=== PATIENT | male | born 1955 | race Caucasian/White ===

== ENCOUNTER 2016-11-18 00:32 | Inpatient (IN) ==
--- NOTE | 2016-11-18 01:05 | Emergency Department Note ---
Disposition Clinical Impression: Pulmonary emboli Qualifiers: Pulmonary embolism type: other Chronicity: acute Acute cor pulmonale presence: without acute cor pulmonale Qualified Code(s): I26.99 - Other pulmonary embolism without acute cor pulmonale Disposition: Admitted As Inpatient Condition: Serious Time of Disposition: 04:07 Chest Pain HPI - General Chief Complaint: ED Chest Pain Stated Complaint: chest pain Time Seen by Provider: 11/18/16 00:58 Source: patient, EMS Mode of arrival: EMS Limitations: no limitations Vital Signs Reviewed: Yes Nursing Notes Reviewed: Yes - History of Present Illness HPI Narrative: patient is brought to the ED with multiple complaints but primarily he states he was having chest pain earlier in the evening but not having chest pain at this time. He states he received a call from his primary physician's nurse advising him that a lung biopsy that was done the "other day" showed some abnormal cells. He states he has been diagnosed with prostate CA, but is unable to give a length of time since this diagnosis. He further elaborates about his spine pain, and now is wanting something for his back pain, wants Cortisone shot in his hips because of his back pain. At this time he is alert and oriented, not experiencing any chest pain no nausea , vomiting or diarrhea. No diaphoresis, no shortness of breath. Pt complaint: chest pain Onset (ago): unknown Duration: now resolved Pain Location: substernal Severity: mild Severity scale (1-10): 4 Quality: aching Pain Radiation: none Worsens with: nothing Treatments prior to arrival chest pain: none - Related Data Home Medications Medication Instructions Recorded Confirmed Betamethasone Valerate 1 appl TP BID 11/11/16 11/18/16 Ciclopirox 1 appl TP 2XW 11/11/16 11/18/16 [place]-3/Dha/Epa/Fish Oil [Fish Oil 1,000 mg PO DAILY 11/11/16 11/18/16 1,000 mg Softgel] Previous Rx's Medication Instructions Recorded Oxycodone HCl/Acetaminophen 1 each PO Q4H PRN #30 tablet 11/19/16 [Percocet 10-325 mg Tablet] Rivaroxaban [Xarelto] 15 mg PO BID 21 Days 11/19/16 Nicotine Patch [Nicoderm] 21 mg TD DAILY #30 patch.td24 11/21/16 OxyCODONE ER (12 HR) [OxyCONTIN] 10 mg PO Q12HR #14 tab.er.12h 11/21/16 OxyCODONE/APAP 10/325 [Percocet 1 each PO Q4HR PRN #0 tablet 11/21/16 10/325 MG] Allergies Allergy/AdvReac Type Severity Reaction Status Date / Time NSAIDS (Non-Steroidal AdvReac Severe Vomiting Verified 09/09/16 16:32 Anti-Inflamma Cyclobenzaprine AdvReac Intermediate Agitated Verified 09/09/16 16:32 All systems ED: reviewed and negative except as stated. Constitutional: Denies: fever, chills, weakness, weight change Eyes: Denies: eye pain, eye discharge, vision change ENT ED: Denies: ear pain, throat pain, dental pain, hearing loss, epistaxis, congestion, dysphagia Cardiovascular: Reports: chest pain. Denies: palpitations, dyspnea on exertion , orthopnea Respiratory: Denies: cough, dyspnea, wheezes, hemoptysis, stridor Gastrointestinal: Denies: abdominal pain, nausea, vomiting, diarrhea, constipation, hematemesis, melena, hematochezia Genitourinary: Denies: urgency, dysuria, frequency, hematuria Musculoskeletal: Denies: back pain, neck pain, arthralgia, myalgia Integumentary: Denies: rash, abrasion, lesions Chest Pain PMH - Past Medical History Medical history: Reports: arthritis, cancer, CHF, hypertension, other Surgical history: Reports: hip replacement, orthopedic, other Psychiatric history: Reports: anxiety - Social History Smoking Status: Current every day smoker Alcohol use: Reports: occasionally, heavy Drug use: Reports: prescription drug abuse, other Physical Exam - General Limitations: no limitations General appearance: alert, in no apparent distress - Head Head exam: atraumatic, normocephalic, normal inspection - Eye Eye exam: Present: normal appearance, PERRL, EOMI - ENT ENT exam: normal exam, normal oropharynx, mucous membranes moist - Neck Neck exam: Present: normal inspection, full ROM, trachea midline - Chest Chest inspection: Present: normal inspection, symmetric chest wall rise. Absent : tenderness, rash, abscess - Respiratory Respiratory exam: Present: normal lung sounds bilaterally. Absent: respiratory distress, wheezes, prolonged expiratory phase - Cardiovascular Cardiovascular exam: Present: regular rate, normal rhythm, normal heart sounds. Absent: systolic murmur, diastolic murmur, JVD - Abdominal Exam Abdominal exam: Present: soft, Non-Tender. Absent: tenderness, distention, guarding, rebound, rigidity - Extremities Exam Extremities exam: Present: normal inspection, full ROM. Absent: tenderness, pedal edema - Back Exam Back exam: Present: normal inspection, full ROM. Absent: tenderness - Neurological Exam Neurological exam: Present: alert, oriented X3 - Psychiatric Psychiatric exam: Present: normal affect, normal mood - Skin Skin exam: Present: warm, dry, intact, normal color Course - Consultations Consultation #1: spoke with Dr. Mayen, hospitalist and he accepted patient as admission Time: 04:07 Vital Signs Temperature 97.5 F L 11/18/16 00:35 Pulse Rate 74 11/18/16 00:35 Respiratory Rate 20 11/18/16 00:35 Blood Pressure 121/108 11/18/16 00:35 O2 Sat by Pulse Oximetry 99 11/18/16 00:35 Temperature 97.5 F L 11/21/16 10:59 Pulse Rate 59 11/21/16 10:59 Respiratory Rate 18 11/21/16 10:59 Blood Pressure 117/77 11/21/16 10:59 O2 Sat by Pulse Oximetry 97 11/21/16 10:59 Oxygen Delivery Oxygen Delivery Room Air Chest Pain - MDM Narrative Medical decision making narrative: pulmonary emboli right multiple - Medical Records Medical records reviewed: Yes I reviewed the patient's medical records. - Lab Data Lab results reviewed: Yes I reviewed the patient's lab results. Result diagrams: 11/21/16 06:02 11/21/16 06:02 Lab Results 11/18/16 11/18/16 11/18/16 Range/Units 01:06 01:06 01:06 WBC 6.3 (4.3-11.1) K/mcL RBC 4.37 (4.19-5.50) M/mcL Hgb 15.1 (12.9-16.9) g/dL Hct 44.5 (37.5-50.1) % MCV 101.8 H (83.0-100.0) fL MCH 34.6 H (28.0-33.3) pg MCHC 33.9 (31.6-35.5) g/dL RDW 12.7 (11.5-14.5) % Plt Count 175 (140-400) K/mcL MPV 9.6 (9.4-12.4) fL Immature Gran % 0.5 (0-4) % Seg Neutrophils % 65.7 % Lymphocytes % 19.6 % Monocytes % 10.7 % Eosinophils % 3.0 % Basophils % 0.5 % Neutrophils # 4.1 (1.6-8.9) K/mcL Lymphocytes # 1.2 (0.6-4.6) K/mcL Monocytes # 0.7 (0.0-1.3) K/mcL Eosinophils # 0.2 (0.0-0.6) K/mcL Basophils # 0.0 (0.0-0.2) K/mcL PT 10.8 (9.4-12.1) Seconds INR 1.0 APTT 30.3 (26.0-36.0) Seconds D-Dimer 2255 H (0-500) ng/mLFEU Heparin Anti-Xa, Unfract (0.30-0.70) IU/mL Sodium 139 (136-145) mEq/L Potassium 4.1 (3.5-4.5) mEq/L Chloride 107 (98-109) mEq/L Carbon Dioxide 24 (19-29) mEq/L BUN 6 L (8-26) mg/dL Creatinine 0.75 (0.72-1.25) mg/dL Est GFR ( Amer) > 60 (> 60) Est GFR (Non-Af Amer) > 60 (> 60) BUN/Creatinine Ratio 8 (6-26) Glucose 104 H (70-99) mg/dL Calculated Osmolality 286 (280-300) Calcium 9.0 (8.6-10.8) mg/dL Total Bilirubin (0.2-1.2) mg/dL AST (5-34) Units/L ALT (0-55) Units/L Alkaline Phosphatase (38-126) Units/L Troponin I (0-0.03) ng/mL Serum Total Protein (6.0-8.3) g/dL Albumin (3.5-5.0) g/dL Globulin (2.4-3.5) g/dL Albumin/Globulin Ratio (1.1-2.2) Prostate Specific Ag (0.00-4.00) ng/mL 11/18/16 11/18/16 11/18/16 Range/Units 01:06 03:50 03:50 WBC 6.3 (4.3-11.1) K/mcL RBC 4.26 (4.19-5.50) M/mcL Hgb 14.8 (12.9-16.9) g/dL Hct 43.6 (37.5-50.1) % MCV 102.3 H (83.0-100.0) fL MCH 34.7 H (28.0-33.3) pg MCHC 33.9 (31.6-35.5) g/dL RDW 12.8 (11.5-14.5) % Plt Count 164 (140-400) K/mcL MPV 9.7 (9.4-12.4) fL Immature Gran % (0-4) % Seg Neutrophils % % Lymphocytes % % Monocytes % % Eosinophils % % Basophils % % Neutrophils # (1.6-8.9) K/mcL Lymphocytes # (0.6-4.6) K/mcL Monocytes # (0.0-1.3) K/mcL Eosinophils # (0.0-0.6) K/mcL Basophils # (0.0-0.2) K/mcL PT 11.1 (9.4-12.1) Seconds INR 1.0 APTT 30.3 (26.0-36.0) Seconds D-Dimer (0-500) ng/mLFEU Heparin Anti-Xa, Unfract (0.30-0.70) IU/mL Sodium (136-145) mEq/L Potassium (3.5-4.5) mEq/L Chloride (98-109) mEq/L Carbon Dioxide (19-29) mEq/L BUN (8-26) mg/dL Creatinine (0.72-1.25) mg/dL Est GFR ( Amer) (> 60) Est GFR (Non-Af Amer) (> 60) BUN/Creatinine Ratio (6-26) Glucose (70-99) mg/dL Calculated Osmolality (280-300) Calcium (8.6-10.8) mg/dL Total Bilirubin (0.2-1.2) mg/dL AST (5-34) Units/L ALT (0-55) Units/L Alkaline Phosphatase (38-126) Units/L Troponin I 0.00 (0-0.03) ng/mL Serum Total Protein (6.0-8.3) g/dL Albumin (3.5-5.0) g/dL Globulin (2.4-3.5) g/dL Albumin/Globulin Ratio (1.1-2.2) Prostate Specific Ag (0.00-4.00) ng/mL 11/18/16 11/18/16 11/18/16 Range/Units 05:13 05:13 05:13 WBC 6.4 (4.3-11.1) K/mcL RBC 4.41 (4.19-5.50) M/mcL Hgb 15.1 (12.9-16.9) g/dL Hct 45.6 (37.5-50.1) % MCV 103.4 H (83.0-100.0) fL MCH 34.2 H (28.0-33.3) pg MCHC 33.1 (31.6-35.5) g/dL RDW 12.7 (11.5-14.5) % Plt Count 173 (140-400) K/mcL MPV 9.9 (9.4-12.4) fL Immature Gran % (0-4) % Seg Neutrophils % % Lymphocytes % % Monocytes % % Eosinophils % % Basophils % % Neutrophils # (1.6-8.9) K/mcL Lymphocytes # (0.6-4.6) K/mcL Monocytes # (0.0-1.3) K/mcL Eosinophils # (0.0-0.6) K/mcL Basophils # (0.0-0.2) K/mcL PT 11.7 (9.4-12.1) Seconds INR 1.1 APTT 185.5 H* D (26.0-36.0) Seconds D-Dimer (0-500) ng/mLFEU Heparin Anti-Xa, Unfract 0.77 H (0.30-0.70) IU/mL Sodium (136-145) mEq/L Potassium (3.5-4.5) mEq/L Chloride (98-109) mEq/L Carbon Dioxide (19-29) mEq/L BUN (8-26) mg/dL Creatinine (0.72-1.25) mg/dL Est GFR ( Amer) (> 60) Est GFR (Non-Af Amer) (> 60) BUN/Creatinine Ratio (6-26) Glucose (70-99) mg/dL Calculated Osmolality (280-300) Calcium (8.6-10.8) mg/dL Total Bilirubin (0.2-1.2) mg/dL AST (5-34) Units/L ALT (0-55) Units/L Alkaline Phosphatase (38-126) Units/L Troponin I 0.00 (0-0.03) ng/mL Serum Total Protein (6.0-8.3) g/dL Albumin (3.5-5.0) g/dL Globulin (2.4-3.5) g/dL Albumin/Globulin Ratio (1.1-2.2) Prostate Specific Ag (0.00-4.00) ng/mL 11/18/16 11/18/16 11/18/16 Range/Units 10:28 12:26 12:26 WBC (4.3-11.1) K/mcL RBC (4.19-5.50) M/mcL Hgb (12.9-16.9) g/dL Hct (37.5-50.1) % MCV (83.0-100.0) fL MCH (28.0-33.3) pg MCHC (31.6-35.5) g/dL RDW (11.5-14.5) % Plt Count (140-400) K/mcL MPV (9.4-12.4) fL Immature Gran % (0-4) % Seg Neutrophils % % Lymphocytes % % Monocytes % % Eosinophils % % Basophils % % Neutrophils # (1.6-8.9) K/mcL Lymphocytes # (0.6-4.6) K/mcL Monocytes # (0.0-1.3) K/mcL Eosinophils # (0.0-0.6) K/mcL Basophils # (0.0-0.2) K/mcL PT (9.4-12.1) Seconds INR APTT (26.0-36.0) Seconds D-Dimer (0-500) ng/mLFEU Heparin Anti-Xa, Unfract (0.30-0.70) IU/mL Sodium 140 (136-145) mEq/L Potassium 3.6 (3.5-4.5) mEq/L Chloride 109 (98-109) mEq/L Carbon Dioxide 25 (19-29) mEq/L BUN 6 L (8-26) mg/dL Creatinine 0.77 (0.72-1.25) mg/dL Est GFR ( Amer) > 60 (> 60) Est GFR (Non-Af Amer) > 60 (> 60) BUN/Creatinine Ratio 8 (6-26) Glucose 125 H (70-99) mg/dL Calculated Osmolality 289 (280-300) Calcium 8.8 (8.6-10.8) mg/dL Total Bilirubin 0.7 (0.2-1.2) mg/dL AST 43 H (5-34) Units/L ALT 33 (0-55) Units/L Alkaline Phosphatase 130 H (38-126) Units/L Troponin I 0.00 (0-0.03) ng/mL Serum Total Protein 6.1 (6.0-8.3) g/dL Albumin 2.7 L (3.5-5.0) g/dL Globulin 3.4 (2.4-3.5) g/dL Albumin/Globulin Ratio 0.8 L (1.1-2.2) Prostate Specific Ag 42.92 H (0.00-4.00) ng/mL 11/18/16 11/19/16 11/19/16 Range/Units 17:36 05:38 05:38 WBC 4.7 (4.3-11.1) K/mcL RBC 3.81 L (4.19-5.50) M/mcL Hgb 13.3 D (12.9-16.9) g/dL Hct 39.8 (37.5-50.1) % MCV 104.5 H (83.0-100.0) fL MCH 34.9 H (28.0-33.3) pg MCHC 33.4 (31.6-35.5) g/dL RDW 12.9 (11.5-14.5) % Plt Count 150 (140-400) K/mcL MPV 10.1 (9.4-12.4) fL Immature Gran % 0.4 (0-4) % Seg Neutrophils % 45.8 % Lymphocytes % 33.8 % Monocytes % 14.3 % Eosinophils % 5.3 % Basophils % 0.4 % Neutrophils # 2.2 (1.6-8.9) K/mcL Lymphocytes # 1.6 (0.6-4.6) K/mcL Monocytes # 0.7 (0.0-1.3) K/mcL Eosinophils # 0.3 (0.0-0.6) K/mcL Basophils # 0.0 (0.0-0.2) K/mcL PT (9.4-12.1) Seconds INR APTT (26.0-36.0) Seconds D-Dimer (0-500) ng/mLFEU Heparin Anti-Xa, Unfract (0.30-0.70) IU/mL Sodium 139 (136-145) mEq/L Potassium 4.1 (3.5-4.5) mEq/L Chloride 107 (98-109) mEq/L Carbon Dioxide 28 (19-29) mEq/L BUN 7 L (8-26) mg/dL Creatinine 0.79 (0.72-1.25) mg/dL Est GFR ( Amer) > 60 (> 60) Est GFR (Non-Af Amer) > 60 (> 60) BUN/Creatinine Ratio 9 (6-26) Glucose 90 (70-99) mg/dL Calculated Osmolality 286 (280-300) Calcium 8.9 (8.6-10.8) mg/dL Total Bilirubin (0.2-1.2) mg/dL AST (5-34) Units/L ALT (0-55) Units/L Alkaline Phosphatase (38-126) Units/L Troponin I 0.00 (0-0.03) ng/mL Serum Total Protein (6.0-8.3) g/dL Albumin (3.5-5.0) g/dL Globulin (2.4-3.5) g/dL Albumin/Globulin Ratio (1.1-2.2) Prostate Specific Ag (0.00-4.00) ng/mL - Radiology Data Radiology results reviewed: Yes I reviewed the patient's radiology results. Heart Score - Score History: Moderately Suspicious EKG: Normal Age: 45-65 Risk Factors: 1-2 risk factors Troponin: Less than normal limit HEART Score Total: 3 Attestation Statement - Attestation Attestation: I personally interviewed and examined this patient and my medical decision- making was reviewed with the Advanced Practice Nurse. I agree with the documented findings, disposition and treatment plan as described except to the extent set forth below. Patient is a 61-year-old male with a history of prostate CA and possible pulmonary metastases as well as chronic low back pain from compression fractures who presents to the emergency department today with transient episode of chest pain prior to arrival. Patient is pain-free at this time but complained of a sudden onset chest discomfort that resolved prior to arrival to the emergency department and the patient has remained pain-free throughout the ED course. Vital signs of been stable and no sign of hypoxia or difficulty breathing. Patient had a significantly elevated d-dimer with remainder of his lab evaluation unremarkable. EKG showed no acute change. We proceeded with CT of the chest for further evaluation of the elevated d-dimer. CT showed multiple small subsegmental pulmonary emboli in the right lung base. No sign of right heart strain. Patient with no signs of respiratory distress or hypoxia and vital signs remained stable. Discussed results with the patient who agrees to anticoagulation and admission. Heparin was started in the emergency department. Patient will be admitted for further evaluation and management of pulmonary emboli.
[2016-11-18] MEDS ORDERED: Aspirin 81 MG TAB.CHEW PO ONE (01:06)
[2016-11-18] MEDS ORDERED: Ketorolac 30 MG/ML VIAL IVP ONE (01:06)
[2016-11-18 01:16] LABS: Basophils % 0.5 %; Eosinophils # 0.2 K/mcL (0.0-0.6); Hematocrit 44.5 % (37.5-50.1); Hemoglobin 15.1 g/dL (12.9-16.9); Immature Granulocytes % 0.5 % (0-4); Lymphocytes # 1.2 K/mcL (0.6-4.6); Lymphocytes % 19.6 %; Mean Corpuscular HGB Conc 33.9 g/dL (31.6-35.5); Mean Corpuscular Hemoglobin 34.6 pg (28.0-33.3); Mean Corpuscular Volume 101.8 fL (83.0-100.0); Mean Platelet Volume 9.6 fL (9.4-12.4); Monocytes # 0.7 K/mcL (0.0-1.3); Monocytes % 10.7 %; Neutrophils # 4.1 K/mcL (1.6-8.9); Platelet Count 175 K/mcL (140-400); Red Blood Count 4.37 M/mcL (4.19-5.50); Red Cell Distribution Width 12.7 % (11.5-14.5); Segmented Neutrophils % 65.7 %
[2016-11-18 01:22] LABS: Prothrombin Time 10.8 Seconds (9.4-12.1)
[2016-11-18 01:25] LABS: Activated Partial Thrombo Time 30.3 Seconds (26.0-36.0)
[2016-11-18 01:29] LABS: BUN/Creatinine Ratio 8 (6-26); Blood Urea Nitrogen 6 mg/dL (8-26); Carbon Dioxide 24 mEq/L (19-29); Chloride 107 mEq/L (98-109); Glucose 104 mg/dL (70-99); Osmolality,Calculated 286 (280-300); Potassium 4.1 mEq/L (3.5-4.5); Sodium 139 mEq/L (136-145); eGFR For African Americans > 60 (> 60); eGFR For Non-African Americans > 60 (> 60)
[2016-11-18] MEDS ORDERED: *HR* HYDROmorphone (PF) 1 MG/ML SYRINGE IVP ONE ×3 (02:08→06:16)
[2016-11-18] MEDS ORDERED: *HR* Heparin 5,000 UNIT/ML VIAL IVP ONE (03:21)
[2016-11-18] MEDS ORDERED: Heparin 25,000 UNIT/500 ML D5W 25,000 UNIT/500 ML MLS IVC SCH ×2 (03:30→05:00)
[2016-11-18 03:57] LABS: Hematocrit 43.6 % (37.5-50.1); Hemoglobin 14.8 g/dL (12.9-16.9); Mean Corpuscular HGB Conc 33.9 g/dL (31.6-35.5); Mean Corpuscular Hemoglobin 34.7 pg (28.0-33.3); Mean Corpuscular Volume 102.3 fL (83.0-100.0); Mean Platelet Volume 9.7 fL (9.4-12.4); Platelet Count 164 K/mcL (140-400); Red Blood Count 4.26 M/mcL (4.19-5.50); Red Cell Distribution Width 12.8 % (11.5-14.5)
[2016-11-18 04:03] LABS: Prothrombin Time 11.1 Seconds (9.4-12.1)
[2016-11-18 04:06] LABS: Activated Partial Thrombo Time 30.3 Seconds (26.0-36.0)
[2016-11-18] MEDS ORDERED: Ondansetron 4 MG/2 ML VIAL IVP PRN (04:53)
[2016-11-18] MEDS ORDERED: Naloxone 0.4 MG/ML INJ IVP PRN (04:53)
[2016-11-18] MEDS ORDERED: *HR* HYDROcodone/Acet 5/325 mg TABLET PO PRN (04:54)
[2016-11-18] MEDS ORDERED: *HR* Heparin 5,000 UNIT/ML VIAL IVP PRN ×2 (04:55)
--- NOTE | 2016-11-18 04:57 | Internal Med History&Physical ---
Date of Encounter: 11/18/16 Time of Encounter: 05:00 Assessment and Plan (1) Pulmonary emboli Current visit: Yes Status: Acute PE in setting of metastatic cancer. No evidence of right heart strain on CT obtained in ER. - Heparin gtt started in ER, will continue - TTE to further evaluate right heart function - Percocet for pain control Qualifiers: Pulmonary embolism type: other Chronicity: acute Acute cor pulmonale presence: without acute cor pulmonale Qualified Code(s): I26.99 - Other pulmonary embolism without acute cor pulmonale (2) Prostate cancer metastatic to bone Current visit: Yes Status: Acute Follows with Dr. Ngo - advanced disease - Patient desires DNR/CCA/DNI code status Code(s): C61 - Malignant neoplasm of prostate; C79.51 - Secondary malignant neoplasm of bone Internal Medicine - H&P: HPI Chief complaint: chest pain Admitted From: Emergency Dept Plans for Post Hospital Care: Home History of present illness: Mr. Enriquez is a 61 year old male with history of metastatic prostate cancer who presented to the ER this evening with complaint of back pain and chest pain. He states that the back pain is a chronic issue which worsened one week ago. The pain is in his lumbar spine. Approximately thirty minutes before he presented to the ER he developed substernal chest pain which was rate 8/10 and did not radiate and was not pleuritic. In the ER he was found to have multiple PEs. He denies shortness of breath. Heparin gtt was initiated in the ER and the patient was admitted for further management. Past Med Surg Social Fam HX - Past Medical History Medical history: arthritis, cancer, CHF, hypertension, other Psychiatric history: anxiety - Past Surgical History Surgical History: hip replacement, orthopedic, other - Social History Smoking Status: Current every day smoker Smokeless Tobacco Status: No Alcohol use: occasionally, heavy Drug use: prescription drug abuse, other - Family History Father Hx Family Cancer: Yes Internal Medicine - H&P: Meds Betamethasone Valerate 1 appl TP BID 11/11/16 [History] Ciclopirox 1 appl TP 2XW 11/11/16 [History] [place]-3/Dha/Epa/Fish Oil [Fish Oil 1,000 mg Softgel] 1,000 mg PO DAILY 11/11/16 [History] HYDROcodone/Acet 5/325 mg [[place] 5-325 mg] 1 tab PO Q6H PRN #90 tab 11/13/16 [Rx ] Hydrochlorothiazide [Hydrochlorothiazide] 25 mg PO DAILY PRN 11/18/16 [History] Allergies NSAIDS (Non-Steroidal Anti-Inflamma Adverse Reaction (Severe, Verified 09/09/16 16:32) Vomiting Cyclobenzaprine Adverse Reaction (Intermediate, Verified 09/09/16 16:32) Agitated All Systems PM: A 10-system review of systems was performed and is negative for pertinent findings except as documented above in the HPI. - Constitutional Vitals: Temp Pulse Resp BP Pulse Ox 97.5 F L 64 20 116/78 99 11/18/16 00:35 11/18/16 04:08 11/18/16 04:08 11/18/16 04:08 11/18/16 04:08 General appearance: Present: A&O X 3, pleasant, no acute distress - Head Head exam: Present: atraumatic - Eye Eye exam: Present: EOMI, sclera anicteric - ENT ENT exam: Present: mucous membranes moist - Neck Neck exam general surgery: Present: supple - Respiratory Respiratory exam: Present: CTAB - Cardiovascular Cardiovascular exam: Present: RRR. Absent: diastolic murmur, gallop, rubs, systolic murmur - GI/Abdominal GI/Abdominal exam: Present: normal bowel sounds, soft. Absent: distended, tenderness - Extremities Exam Extremities exam: Present: pedal edema Additional comments: 1+ edema RLE to knee - Neurological Exam Neurological exam: Present: no focal deficits - Skin Skin exam: Absent: rash Internal Med - H&P Results - Labs CBC & Chem 7: 11/18/16 05:13 11/18/16 01:06
[2016-11-18 05:27] LABS: Hematocrit 45.6 % (37.5-50.1); Hemoglobin 15.1 g/dL (12.9-16.9); Mean Corpuscular HGB Conc 33.1 g/dL (31.6-35.5); Mean Corpuscular Hemoglobin 34.2 pg (28.0-33.3); Mean Corpuscular Volume 103.4 fL (83.0-100.0); Mean Platelet Volume 9.9 fL (9.4-12.4); Platelet Count 173 K/mcL (140-400); Red Blood Count 4.41 M/mcL (4.19-5.50); Red Cell Distribution Width 12.7 % (11.5-14.5)
[2016-11-18 05:30] LABS: INR 1.1; Prothrombin Time 11.7 Seconds (9.4-12.1)
[2016-11-18 05:47] LABS: Activated Partial Thrombo Time 185.5 Seconds (26.0-36.0)
[2016-11-18 05:58] LABS: Heparin anti-factor XA UFH 0.77 IU/mL (0.30-0.70)
[2016-11-18] MEDS ORDERED: *HR* OxyCODONE/APAP 10/325 TABLET PO PRN (06:51)
[2016-11-18] MEDS: Triamcinolone Acet 0.1% CRM 15 GM TUBE TP SCH ×3 (09:52→21:37)
[2016-11-18] MEDS: Nicotine 21 MG PATCH.TD24 TD SCH (10:29)
--- NOTE | 2016-11-18 11:51 | Oncology Inp Consult Note ---
Date of Encounter: 11/18/16 Time of Encounter: 11:46 Assessment and Plan (1) Pulmonary emboli Status: Acute Assessment and plan: Newly diagnosed. Hemodynamically stable. Risk factor is possibly prostate cancer. Obtain Doppler of the lower ext to r/o DVT. Agree with anticoagulation with heparin. Consider transitioning him to xarelto 15 mg po bid for 21 days and then 20 mg po daily. No bridging required. Hypercoaguable workup will be performed in the outpatient setting if indicated. Qualifiers: Pulmonary embolism type: other Chronicity: acute Acute cor pulmonale presence: without acute cor pulmonale Qualified Code(s): I26.99 - Other pulmonary embolism without acute cor pulmonale (2) Prostate cancer Status: Acute Assessment and plan: [place] 9, with CT Chest suggestive of metastatic disease, but recent biopsy was negative. He has been started on Lupron and is planned for RT + ADT. (3) Back pain Status: Acute Assessment and plan: In the setting of a malignancy.Will obtain MRI to r/o cord compression. He however does not have any symptoms or signs to suggest such. Qualifiers: Back pain location: low back pain Chronicity: acute Back pain laterality : bilateral - Data of Consult Patient: known to practice within the last 3 years Consult date: 11/18/16 Requesting Physician: Zhang Amaro Primary Care Provider: Ray Griffiths - Consult Narrative History of present illness: Mr. Enriquez is a 61 year old male with recently diagnosed [place] 5+4 prostate cancer who presented to the emergency room on account of back and chest pain. His main complaint had been in the back pain, but he did reports new onset chest pain during his interview. In the ER a CT of the chest obtained on 2016 revealed small segmental/subsegmental pulmonary emboli in the right lower lobe and possibly of the right upper lobe. Also seen was new and slightly larger bilateral pulmonary nodules suspicious for metastatic disease. He was started on intravenous heparin and admitted to the hospital for further management. 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 Low back pain is new and has not been worked up as per patient. Concerning his oncologic history he initially presented on 09/07/16 with dark urine, jaundice and markedly elevated liver enzymes with CT chest showing possible lung metastasis. Workup at that time had revealed hepatitis B with active viremia. His PSA was elevated at 27.5. On 09/30/16 he underwent a prostate biopsy which revealed [place] 5+4 prostate cancer involving 5 of 6 cores in both lobes. Repeat CT chest on 10/14/16 revealed slight increase in the bilateral pulmonary nodules. He underwent a bronchoscopy on 11/11/16 with the FNA of the subcarinal lymph node and a bronchoalveolar lavage being negative. His PSA has continued to rise from 27.59 on 09/09/2016 and a presently 48.20 on 10/22/2016. Past Med Surg Social Fam HX - Past Medical History Medical history: arthritis, cancer, CHF, hypertension, other Psychiatric history: anxiety - Past Surgical History Surgical History: hip replacement, orthopedic, other - Social History Smoking Status: Current every day smoker Packs per day: 1 Smokeless Tobacco Status: No Alcohol use: occasionally Drug use: prescription drug abuse, other - Family History Father Hx Family Cancer: Yes Medications and Allergies Betamethasone Valerate 1 appl TP BID 11/11/16 [History] Ciclopirox 1 appl TP 2XW 11/11/16 [History] [place]-3/Dha/Epa/Fish Oil [Fish Oil 1,000 mg Softgel] 1,000 mg PO DAILY 11/11/16 [History] HYDROcodone/Acet 5/325 mg [[place] 5-325 mg] 1 tab PO Q6H PRN #90 tab 11/13/16 [Rx ] Allergies NSAIDS (Non-Steroidal Anti-Inflamma Adverse Reaction (Severe, Verified 09/09/16 16:32) Vomiting Cyclobenzaprine Adverse Reaction (Intermediate, Verified 09/09/16 16:32) Agitated All systems: reviewed and no additional remarkable complaints except as stated Oncology - Exam - Constitutional Vitals: Temp Pulse Resp BP Pulse Ox 97.5 F L 78 16 99/62 98 11/18/16 11:34 11/18/16 11:34 11/18/16 11:34 11/18/16 11:34 11/18/16 11:34 - Head Head exam: Present: atraumatic, normal inspection - Eye Eye exam: Present: normal appearance - ENT ENT exam: Present: mucous membranes moist, normal exam - Neck Neck exam: Present: normal inspection. Absent: lymphadenopathy - Respiratory Respiratory exam: Present: CTAB. Absent: chest wall tenderness - Cardiovascular Cardiovascular exam: Present: RRR, +S1, +S2. Absent: irregular rhythm, systolic murmur, tachycardia - GI/Abdominal GI/Abdominal exam: Present: normal bowel sounds. Absent: organomegaly, rebound , rigid - Back Exam Back exam: Present: vertebral tenderness - Neurological Exam Neurological exam: Present: alert, oriented X3 Oncology - Results - Labs Labs: Short CBC 11/18/16 Range/Units 05:13 WBC 6.4 (4.3-11.1) K/mcL Hgb 15.1 (12.9-16.9) g/dL Hct 45.6 (37.5-50.1) % Plt Count 173 (140-400) K/mcL Cardiac Enzymes 11/18/16 11/18/16 Range/Units 05:13 10:28 Troponin I 0.00 0.00 (0-0.03) ng/mL Consult Discharge Plan - Plan Referrals: Faustino King DO [Resident] - 11/27/16 11:00 am
[2016-11-18 13:35] LABS: Alanine Aminotransferase 33 Units/L (0-55); Albumin 2.7 g/dL (3.5-5.0); Albumin/Globulin Ratio 0.8 (1.1-2.2); Alkaline Phosphatase 130 Units/L (38-126); Aspartate Amino Transferase 43 Units/L (5-34); BUN/Creatinine Ratio 8 (6-26); Bilirubin,Total 0.7 mg/dL (0.2-1.2); Blood Urea Nitrogen 6 mg/dL (8-26); Calcium 8.8 mg/dL (8.6-10.8); Carbon Dioxide 25 mEq/L (19-29); Chloride 109 mEq/L (98-109); Globulin 3.4 g/dL (2.4-3.5); Glucose 125 mg/dL (70-99); Osmolality,Calculated 289 (280-300); Potassium 3.6 mEq/L (3.5-4.5); Sodium 140 mEq/L (136-145); Total Protein 6.1 g/dL (6.0-8.3); eGFR For African Americans > 60 (> 60); eGFR For Non-African Americans > 60 (> 60)
[2016-11-18] MEDS: *HR* OxyCODONE/APAP 10/325 TABLET PO PRN ×3 (14:39→23:20)
--- NOTE | 2016-11-18 15:21 | ECHO - Doppler Report ---
Echocardiogram Name: Timo Enriquez Date of Study: 11/18/2016 Date: 1955 Ht: 72.0 in Medical Record#: [id number] Age: 61 Wt: 154.0 lb Gender: Male BSA: 1.91 Order #: [id number] [facility] Room #: 2NE33 Reading Physician: Ivan Rose DO, ERLIN RODRIGUEZ Fire Extinguisher Repairer: Chandu Lyon RDCS Ordering Physician: Elina Grossman MD Primary Physician: Ray Ramirez DO Indications: Pulmonary embolus Impressions: LVEF 60-65%. Normal LV chamber size, wall thickness and function. Mild left ventricular diastolic dysfunction. Normal right ventricular structure and function. No evidence of pulmonary hypertension. No significant valvular dysfunction. Left Ventricular Wall Motion: Rest Echo Findings All wall segments showed normal motion. Findings: Study Quality * Technically adequate exam. ECG Findings * Normal sinus rhythm. Left Ventricle * LVEF 60-65%. * Normal LV chamber size, wall thickness and function. * Mild left ventricular diastolic dysfunction. Right Ventricle * Normal right ventricular structure and function. Left Atrium * Mildly dilated left atrium. Right Atrium * Mildly dilated right atrium. Interatrial Septum * No evidence of PFO by color Doppler. Aortic Valve * Trileaflet aortic valve with normal function. * No aortic regurgitation. * No aortic stenosis. Mitral Valve * Normal mitral valve structure and function. * No mitral regurgitation. * No mitral stenosis. Tricuspid Valve * Normal tricuspid valve structure and function. * Trace tricuspid regurgitation. * No evidence of pulmonary hypertension. Pulmonic Valve * Pulmonic valve is not well visualized. * No pulmonic regurgitation. Aorta * Normally sized aortic root. Pericardium * The pericardium appears normal. IVC * Normal IVC dimensions and inspiratory collapse. Pulmonary Artery * Normal visualized portions of the main pulmonary artery. History Hypertension History of Smoking Years 40 Packs 1 Congestive Heart Failure 05/11/13 a Previous Echo was performed. Measurements: BP: 135/ 87 2D Normal Values RVIDd: 2.33 cm <2.7 cm IVSd: .74 cm 0.6 - 1.0 cm LVIDd: 4.17 cm 3.7 - 5.6 cm LVPWd: .78 cm 0.6 - 1.1 cm LVIDs: 2.99 cm 1.5 - 3.6 cm AO: 2.60 cm < 4.0 cm LA: 1.90 cm 2.0 - 4.0cm %FS: 28.30 cm >25 % LA volume: 39 Mitral Valve Peak E:.52 m/sec Peak A:.57 m/sec E/A Ratio:0.9 Peak E' Lat Sancho:10.2 cm/s Peak E' Med Sancho:7.96 cm/s E/E' Lat Ratio:5.1 E/E' Med Ratio:6.5 Tricuspid Valve TV Regurg Peak Grad: 18.00mmHg TV Regurg Peak Sancho: 2.14m/sec Updated by Ivan Rose DO, FACRoger, ERLIN, ESTRELLA on 11/18/2016 3:16:55 PM electronically signed on 11/18/2016 3:17:18 PM with status of Final Wall Motion Moralez: 1=Normal, 2=Hypokinesis, 3=Akinesis, 4=Dyskinesis, 5=Aneurysmal, 6=Hyperkinetic, X=Not Visualized (Blank)=Missing
--- NOTE | 2016-11-18 17:25 | Internal Med Progress Note ---
Date of Encounter: 11/18/16 Time of Encounter: 17:22 - Assessment and plan (1) Pulmonary emboli Current Visit: Yes Status: Acute Assessment and plan: initially on heparin drip. switched today to lovenox full dose. echo requested. monitor hb. monitor for signs of bleeding. follow onc recommendations. will need termite exterminator AC. Qualifiers: Pulmonary embolism type: other Chronicity: acute Acute cor pulmonale presence: without acute cor pulmonale Qualified Code(s): I26.99 - Other pulmonary embolism without acute cor pulmonale (2) Prostate cancer metastatic to bone Current Visit: Yes Status: Acute Assessment and plan: management as per oncology. - Time Spent With Patient 25 - 35 minutes - Subjective Interval history: 1st encounter with the patient. feels better. no chst pain . afebrile. - Constitutional Vitals: Temp Pulse Resp BP Pulse Ox 97.5 F L 78 16 99/62 98 11/18/16 11:34 11/18/16 11:34 11/18/16 11:34 11/18/16 11:34 11/18/16 11:34 General appearance: Present: A&O X 3, pleasant, no acute distress - Head Head exam: Present: atraumatic, normocephalic - Eye Eye exam: Present: PERRL, conjuntiva pink, sclera anicteric Pupils: Present: PERRL - Neck Neck exam general surgery: Present: supple, trachea midline. Absent: lymphadenopathy - Respiratory Respiratory exam: Present: CTAB. Absent: accessory muscle use, rales, rhonchi, wheezes - Cardiovascular Cardiovascular exam: Present: RRR, +S1, +S2. Absent: diastolic murmur, gallop, rubs, systolic murmur - GI/Abdominal GI/Abdominal exam: Present: normal bowel sounds, soft, no peritoneal signs. Absent: distended, tenderness - Extremities Exam Extremities exam: Present: warm, radial pulses palpable and symetrical. Absent : calf tenderness, cyanotic, pedal edema - Neurological Exam Neurological exam: Present: CN II-XII intact, oriented X3, no focal deficits. Absent: pronater drift, facial droop, speech deficit - Skin Skin exam: Present: dry, intact Internal Medicine: Result - Labs CBC & Chem 7: 11/18/16 05:13 11/18/16 12:26 Labs: Short CBC 11/18/16 Range/Units 05:13 WBC 6.4 (4.3-11.1) K/mcL Hgb 15.1 (12.9-16.9) g/dL Hct 45.6 (37.5-50.1) % Plt Count 173 (140-400) K/mcL BMP 11/18/16 12:26 Sodium 140 Potassium 3.6 Chloride 109 Carbon Dioxide 25 BUN 6 L Creatinine 0.77 Glucose 125 H Calcium 8.8 Cardiac Enzymes 11/18/16 11/18/16 Range/Units 05:13 10:28 Troponin I 0.00 0.00 (0-0.03) ng/mL Liver Function 11/18/16 Range/Units 12:26 Total Bilirubin 0.7 (0.2-1.2) mg/dL AST 43 H (5-34) Units/L ALT 33 (0-55) Units/L Alkaline Phosphatase 130 H (38-126) Units/L Albumin 2.7 L (3.5-5.0) g/dL - ABG Interpretation ABG results: PT/INR, D-dimer PT 11.7 Seconds (9.4-12.1) 11/18/16 05:13 D-Dimer 2255 ng/mLFEU (0-500) H 11/18/16 01:06 - Impressions Impressions Lumbar Spine MRI 11/18/16 12:29 IMPRESSION: Multifocal osseous metastatic disease. L1 superior endplate Schmorl's node deformity with suspected additional acute-subacute superior endplate fracture. There is minimal height loss and no significant dorsal osseous retropulsion. D/ / Gino Davis MD / Gino Davis MD Interpreting Provider: Gino Davis MD Consult Discharge Plan - Plan Referrals: Faustino King DO [Resident] - 11/27/16 11:00 am
[2016-11-18] MEDS: *HR* Enoxaparin 80 MG/0.8 ML SYRINGE SQ SCH (17:52)
[2016-11-19] MEDS: *HR* OxyCODONE/APAP 10/325 TABLET PO PRN ×5 (04:25→22:08)
[2016-11-19 05:59] LABS: Basophils % 0.4 %; Eosinophils # 0.3 K/mcL (0.0-0.6); Eosinophils % 5.3 %; Hematocrit 39.8 % (37.5-50.1); Immature Granulocytes % 0.4 % (0-4); Lymphocytes # 1.6 K/mcL (0.6-4.6); Lymphocytes % 33.8 %; Mean Corpuscular HGB Conc 33.4 g/dL (31.6-35.5); Mean Corpuscular Hemoglobin 34.9 pg (28.0-33.3); Mean Corpuscular Volume 104.5 fL (83.0-100.0); Mean Platelet Volume 10.1 fL (9.4-12.4); Monocytes # 0.7 K/mcL (0.0-1.3); Monocytes % 14.3 %; Neutrophils # 2.2 K/mcL (1.6-8.9); Platelet Count 150 K/mcL (140-400); Red Blood Count 3.81 M/mcL (4.19-5.50); Red Cell Distribution Width 12.9 % (11.5-14.5); Segmented Neutrophils % 45.8 %
[2016-11-19] MEDS: *HR* Enoxaparin 80 MG/0.8 ML SYRINGE SQ SCH (06:04)
[2016-11-19 06:09] LABS: Hemoglobin 13.3 g/dL (12.9-16.9)
[2016-11-19 06:16] LABS: BUN/Creatinine Ratio 9 (6-26); Blood Urea Nitrogen 7 mg/dL (8-26); Calcium 8.9 mg/dL (8.6-10.8); Carbon Dioxide 28 mEq/L (19-29); Chloride 107 mEq/L (98-109); Glucose 90 mg/dL (70-99); Osmolality,Calculated 286 (280-300); Potassium 4.1 mEq/L (3.5-4.5); Sodium 139 mEq/L (136-145); eGFR For African Americans > 60 (> 60); eGFR For Non-African Americans > 60 (> 60)
[2016-11-19] MEDS: Nicotine 21 MG PATCH.TD24 TD SCH (09:20)
[2016-11-19] MEDS: Triamcinolone Acet 0.1% CRM 15 GM TUBE TP SCH ×3 (09:24→22:54)
--- NOTE | 2016-11-19 10:21 | Discharge Summary ---
Date of Encounter: 11/19/16 Time of Encounter: 10:17 - Discharge Diagnosis (1) Pulmonary emboli Priority: Primary Status: Acute Qualifiers: Pulmonary embolism type: other Chronicity: acute Acute cor pulmonale presence: without acute cor pulmonale Qualified Code(s): I26.99 - Other pulmonary embolism without acute cor pulmonale (2) Prostate cancer metastatic to bone Priority: Secondary Status: Acute - Discharge Medications Prescriptions: Oxycodone HCl/Acetaminophen [Percocet 10-325 mg Tablet] 1 each PO Q4H PRN #30 tablet PRN Reason: Severe Pain Rivaroxaban [Xarelto] 15 mg PO BID 21 Days Home Medications: Betamethasone Valerate 1 appl TP BID 11/11/16 [History] Ciclopirox 1 appl TP 2XW 11/11/16 [History] [place]-3/Dha/Epa/Fish Oil [Fish Oil 1,000 mg Softgel] 1,000 mg PO DAILY 11/11/16 [History] HYDROcodone/Acet 5/325 mg [[place] 5-325 mg] 1 tab PO Q6H PRN #90 tab 11/13/16 [Rx ] Oxycodone HCl/Acetaminophen [Percocet 10-325 mg Tablet] 1 each PO Q4H PRN #30 tablet 11/19/16 [Rx] Rivaroxaban [Xarelto] 15 mg PO BID 21 Days 11/19/16 [Rx] Allergies/Adverse Reactions: Allergies NSAIDS (Non-Steroidal Anti-Inflamma Adverse Reaction (Severe, Verified 09/09/16 16:32) Vomiting Cyclobenzaprine Adverse Reaction (Intermediate, Verified 09/09/16 16:32) Agitated Procedures/tests Complete & Pending: Procedures Performed prior 72 hours Category Date Time Status MR cervical spine wo/w con [MR] Stat MRI 11/18/16 12:29 Completed MR lumbar spine wo/w con [MR] Stat MRI 11/18/16 12:29 Completed EV echocardiogram Routine Y 11/18/16 05:48 Completed EV venous imaging LE BI Stat Y 11/18/16 12:09 Completed Date of admission: 11/18/16 04:27 Primary care physician: Ray Griffiths Consults: 11/18/16 10:51 Consult to Oncology Hematology [CONS] Routine Consulting Provider: Ban Cruz I Reason for Consult: Admitted due to PE, H/O prostate cancer under treatment at [facility]. Thanks. Call Completed: No Discharging clinician: Zhang Amaro Anticipated date of discharge: 11/19/16 - Patient Status Disposition: Home, Self-Care Condition: Serious Functional capacity at discharge: independent ambulation Overall status at discharge: patient is back to baseline - Discharge Instructions Follow Up With: Faustino King DO [Resident] - 11/27/16 11:00 am Additional Instructions: Follow up with hem-onc. - Diet and Activity Activity: increase activity as tolerated Diet: advance to your usual diet Interval History: Mr. Enriquez is a 61 year old male with history of metastatic prostate cancer who presented to the ER this evening with complaint of back pain and chest pain. He states that the back pain is a chronic issue which worsened one week ago. The pain is in his lumbar spine. Approximately thirty minutes before he presented to the ER he developed substernal chest pain which was rate 8/10 and did not radiate and was not pleuritic. In the ER he was found to have multiple PEs. He denies shortness of breath. Heparin gtt was initiated in the ER and the patient was admitted for further management. Hospital course: Mr. Enriquez is a 61 year old male with history of prostate cancer, presented to ED for chest pain evaluation, found to have pulmonary embolism. Initially started on IV heparin drip, transitioned to lovenox. Echo did not reveal right heart strain. Evaluated by oncology, recommended transition to xarelto for continuity of anticoagulation. Will give prescription for initial 21 days, will start with 15 mg bid which should be continued afterwards at a dose of 20 mg daily. Due to back pain there was a concern for cord compression. However, imaging did not reveal findings consistent with cord compression. Patient will follow up with hem-onc as outpatient. For pain control will give percocet 10 mg q 4 hrs PRN severe pain. D/W patient. - Time Spent with Patient Total time spent providing and/or coordinating discharge services: - Constitutional Vitals: Temp Pulse Resp BP Pulse Ox 97.5 F L 69 16 108/72 97 11/19/16 07:54 11/19/16 07:54 11/19/16 07:54 11/19/16 07:54 11/19/16 09:00 General appearance: Present: A&O X 3, pleasant, no acute distress - Head Head exam: Present: atraumatic, normocephalic - Eye Eye exam: Present: PERRL, conjuntiva pink, sclera anicteric Pupils: Present: PERRL - Neck Neck exam general surgery: Present: supple, trachea midline. Absent: lymphadenopathy - Respiratory Respiratory exam: Present: CTAB. Absent: accessory muscle use, rales, rhonchi, wheezes - Cardiovascular Cardiovascular exam: Present: RRR, +S1, +S2. Absent: diastolic murmur, gallop, rubs, systolic murmur - GI/Abdominal GI/Abdominal exam: Present: normal bowel sounds, soft, no peritoneal signs. Absent: distended, tenderness - Extremities Exam Extremities exam: Present: warm, radial pulses palpable and symetrical. Absent : calf tenderness, cyanotic, pedal edema - Neurological Exam Neurological exam: Present: CN II-XII intact, oriented X3, no focal deficits. Absent: pronater drift, facial droop, speech deficit - Skin Skin exam: Present: dry, intact
--- NOTE | 2016-11-19 12:28 | Oncology Inp Progress Note ---
Date of Encounter: 11/19/16 Time of Encounter: 20:07 (1) Pulmonary emboli Current Visit: Yes Status: Acute Assessment and plan: Newly diagnosed. Hemodynamically stable. Risk factor is possibly prostate cancer. Patient is on lovenox. Can transition to xarelto after biopsy of bone lesion is obtained (xarelto 15 mg po bid for 21 days and then 20 mg po daily. No bridging required). Hypercoaguable workup will be performed in the outpatient setting if indicated. Qualifiers: Pulmonary embolism type: other Chronicity: acute Acute cor pulmonale presence: without acute cor pulmonale Qualified Code(s): I26.99 - Other pulmonary embolism without acute cor pulmonale (2) Prostate cancer Current Visit: Yes Status: Acute Assessment and plan: [place] 9, with CT Chest suggestive of metastatic disease, but recent biopsy was negative. He has been started on Lupron and is planned for RT + ADT. Recent MRI of the cervical and lumbar spine however showing multifocal osseous metastatic disease. CT guided biopsy of these bone lesions will be obtained for histological confirmation of metastatic disease. (3) Back pain Current Visit: Yes Status: Acute Assessment and plan: MRI of the cervical and lumbar spine however showing multifocal osseous metastatic disease. CT guided biopsy of these bone lesions will be obtained for histological confirmation of metastatic disease. There is no involvement Of spinal cord and no paraspinal mass seen. He is on Percocet which is not controlling his pain and he is requiring frequent breakthrough pain medications. Will add OxyContin 10 mg twice a day for better pain control Oncology: Subj Interval history: Patient is doing relatively okay. He continues to report back pain. He is not in any respiratory distress - Constitutional Vitals: Vital Signs Temp Pulse Resp BP Pulse Ox 11/19/16 09:00 97 11/19/16 07:54 97.5 F L 69 16 108/72 97 11/19/16 04:27 98.4 F 67 15 119/85 96 11/18/16 21:43 96 11/18/16 21:18 97.7 F 73 18 106/75 96 11/18/16 17:50 84 16 116/76 Intake and Output 11/18/16 11/19/16 11/19/16 23:59 07:59 15:59 Intake Total 120 / 120 Output Total 200 / 200 975 / 975 Balance -200 / -200 -975 / -975 120 / 120 Intake: Oral 120 / 120 Output: Urine 200 / 200 975 / 975 Other: Meal Breakfast Percent of Meal Consumed 75% Weight 72.4 kg Patient Weight 11/19/16 23:59 Weight 72.4 kg General appearance: average body habitus, cooperative, no febrile, no no acute distress, no obese, no severe distress - Head Head exam: Present: normal inspection, normocephalic - Eye Eye exam: Present: EOMI, normal appearance - Neck Neck exam: Absent: lymphadenopathy, meningismus, tenderness - Respiratory Respiratory exam: Present: CTAB. Absent: stridor, wheezes - Cardiovascular Cardiovascular exam: Present: RRR, +S1, +S2 - GI/Abdominal GI/Abdominal exam: Present: soft. Absent: organomegaly, rebound, rigid, tenderness - Extremities Exam Extremities exam: Present: normal inspection. Absent: pedal edema - Neurological Exam Neurological exam: Present: alert, oriented X3 Oncology: Obj Data - Labs CBC & Chem 7: 11/19/16 05:38 11/19/16 05:38 Labs: Laboratory Results - last 24 hr 11/18/16 11/18/16 11/18/16 12:26 12:26 17:36 WBC RBC Hgb Hct MCV MCH MCHC RDW Plt Count MPV Immature Gran % Seg Neutrophils % Lymphocytes % Monocytes % Eosinophils % Basophils % Neutrophils # Lymphocytes # Monocytes # Eosinophils # Basophils # Sodium 140 Potassium 3.6 Chloride 109 Carbon Dioxide 25 BUN 6 L Creatinine 0.77 Est GFR ( Amer) > 60 Est GFR (Non-Af Amer) > 60 BUN/Creatinine Ratio 8 Glucose 125 H Calculated Osmolality 289 Calcium 8.8 Total Bilirubin 0.7 AST 43 H ALT 33 Alkaline Phosphatase 130 H Troponin I 0.00 Serum Total Protein 6.1 Albumin 2.7 L Globulin 3.4 Albumin/Globulin Ratio 0.8 L Prostate Specific Ag 42.92 H 11/19/16 11/19/16 05:38 05:38 WBC 4.7 RBC 3.81 L Hgb 13.3 D Hct 39.8 MCV 104.5 H MCH 34.9 H MCHC 33.4 RDW 12.9 Plt Count 150 MPV 10.1 Immature Gran % 0.4 Seg Neutrophils % 45.8 Lymphocytes % 33.8 Monocytes % 14.3 Eosinophils % 5.3 Basophils % 0.4 Neutrophils # 2.2 Lymphocytes # 1.6 Monocytes # 0.7 Eosinophils # 0.3 Basophils # 0.0 Sodium 139 Potassium 4.1 Chloride 107 Carbon Dioxide 28 BUN 7 L Creatinine 0.79 Est GFR ( Amer) > 60 Est GFR (Non-Af Amer) > 60 BUN/Creatinine Ratio 9 Glucose 90 Calculated Osmolality 286 Calcium 8.9 Total Bilirubin AST ALT Alkaline Phosphatase Troponin I Serum Total Protein Albumin Globulin Albumin/Globulin Ratio Prostate Specific Ag - Impressions Impressions Cervical Spine MRI 11/18/16 12:29 IMPRESSION: Abnormal bone marrow signal in the entire T2 vertebral body and in the posterior arch of C1 with enhancement, likely related to metastatic disease, new since June 25, 2015. No definite evidence of acute compression fracture. Multilevel degenerative disc disease as described above, grossly stable. D/ / Trever Owen MD / Trever Owen MD Interpreting Provider: Trever Owen MD Lumbar Spine MRI 11/18/16 12:29 IMPRESSION: Multifocal osseous metastatic disease. L1 superior endplate Schmorl's node deformity with suspected additional acute-subacute superior endplate fracture. There is minimal height loss and no significant dorsal osseous retropulsion. D/ / Gino Davis MD / Gino Davis MD Interpreting Provider: Gino Davis MD - ABG Interpretation ABG results: PT/INR, D-dimer PT 11.7 Seconds (9.4-12.1) 11/18/16 05:13 D-Dimer 2255 ng/mLFEU (0-500) H 11/18/16 01:06 Consult Discharge Plan - Plan Additional Instructions: Follow up with hem-onc. Referrals: Faustino King DO [Resident] - 11/27/16 11:00 am
--- NOTE | 2016-11-19 13:25 | Electrocardiograph Report ---
[place] [id number] Test Date: 2016-11-18 Pat Name: Timo Enriquez Department: 105 Room: [id number] Gender: M [employer] Shop Supervisor: : 1955 Requested By: Michelle Leon Order Number: [id number] Reading MD: Massimo Wade MD Measurements Intervals [place] Rate: 75 P: 80 SC: 136 QRS: 81 QRSD: 81 T: 63 QT: 407 QTc: 436 Interpretive Statements SINUS RHYTHM Electronically Signed On 11-19-2016 13:24:02 EDT by Massimo Wade MD
[2016-11-19] MEDS ORDERED: *HR* Rivaroxaban 15 MG TABLET PO SCH (16:00)
[2016-11-19] MEDS ORDERED: *HR* Enoxaparin 80 MG/0.8 ML SYRINGE SQ SCH (18:00)
[2016-11-20] MEDS: *HR* OxyCODONE/APAP 10/325 TABLET PO PRN ×5 (03:30→20:55)
[2016-11-20] MEDS: Triamcinolone Acet 0.1% CRM 15 GM TUBE TP SCH ×3 (08:22→20:04)
[2016-11-20] MEDS: Nicotine 21 MG PATCH.TD24 TD SCH (08:22)
[2016-11-20] MEDS ORDERED: 0.9 % Sodium Chloride 500 ML ONE (12:46)
[2016-11-20] MEDS: *HR* Midazolam HCl 2 MG/2 ML VIAL IVP PRN ×2 (12:58→13:04)
[2016-11-20] MEDS: *HR* FentaNYL (PF) 100 MCG/2 ML VIAL IVP PRN ×2 (12:59→13:03)
--- NOTE | 2016-11-20 13:09 | Pre-Sedation Evaluation ---
Pre-sedation evaluation - Pre-sedation checklist Date of procedure: 11/20/16 Procedure: biopsy Recent Vitals: Last Vital Signs Temp 97.8 F 11/20/16 11:18 Pulse 63 11/20/16 13:05 Resp 16 11/20/16 13:05 BP 145/105 11/20/16 13:05 Pulse Ox 100 11/20/16 13:05 H&P (including ROS) documented in medical record: Yes Previous reaction to sedatives/anesthetics: No Dietary Status: NPO after Midnight Dentition: No loose teeth or bridges ASA Classification *see protocol: CLASS III-Severe systemic disease Plan of Care: Pt appropriate candidate for procedure/moderate/conscious sedation , Risks/benefits of procedure/sedation discussed w/ patient/family
--- NOTE | 2016-11-20 13:10 | IR Procedure Note ---
Date of procedure: 11/20/16 Consent Obtained: Written consent Timeout: Correct patient and procedure verified, Correct site verified, Time out performed, Skin prep completed Local anesthetic: Lidocaine 1% Indications: L1 lesion Procedure Performed: CT guided biopsy Results/Findings: Sample to path Complications: None; Tolerated procedure well (Monitor on floor)
--- NOTE | 2016-11-20 16:21 | Internal Med Progress Note ---
Date of Encounter: 11/20/16 Time of Encounter: 16:19 - Assessment and plan (1) Pulmonary emboli Current Visit: Yes Status: Acute Assessment and plan: initially on heparin drip, switched to lovenox full dose. echo requested, no findings consistent wit right sided strain monitor hb. monitor for signs of bleeding. today underwent ir guided biopsy as per onc recommendations, pln is to resume lovenox today in the evening, monitor the patient today and discharge him on xarelto tomorrow if stable. d/w patient and agreed with plan. Qualifiers: Pulmonary embolism type: other Chronicity: acute Acute cor pulmonale presence: without acute cor pulmonale Qualified Code(s): I26.99 - Other pulmonary embolism without acute cor pulmonale (2) Prostate cancer metastatic to bone Current Visit: Yes Status: Acute - Subjective Interval history: feels better, however still back pain no chest pain . afebrile. - Constitutional Vitals: Temp Pulse Resp BP Pulse Ox 98 F 70 16 113/90 98 11/20/16 15:55 11/20/16 15:55 11/20/16 15:55 11/20/16 15:55 11/20/16 15:55 General appearance: Present: A&O X 3, pleasant, no acute distress - Head Head exam: Present: atraumatic, normocephalic - Eye Eye exam: Present: PERRL, conjuntiva pink, sclera anicteric Pupils: Present: PERRL - Neck Neck exam general surgery: Present: supple, trachea midline. Absent: lymphadenopathy - Respiratory Respiratory exam: Present: CTAB. Absent: accessory muscle use, rales, rhonchi, wheezes - Cardiovascular Cardiovascular exam: Present: RRR, +S1, +S2. Absent: diastolic murmur, gallop, rubs, systolic murmur - GI/Abdominal GI/Abdominal exam: Present: normal bowel sounds, soft, no peritoneal signs. Absent: distended, tenderness - Extremities Exam Extremities exam: Present: warm, radial pulses palpable and symetrical. Absent : calf tenderness, cyanotic, pedal edema - Neurological Exam Neurological exam: Present: CN II-XII intact, oriented X3, no focal deficits. Absent: pronater drift, facial droop, speech deficit - Skin Skin exam: Present: dry, intact Internal Medicine: Result - Labs CBC & Chem 7: 04/20/17 05:38 11/19/16 05:38 - ABG Interpretation ABG results: PT/INR, D-dimer PT 11.7 Seconds (9.4-12.1) 11/18/16 05:13 D-Dimer 2255 ng/mLFEU (0-500) H 11/18/16 01:06 - Impressions Impressions Bone Biopsy CT 11/20/16 00:00 IMPRESSION: 1. CT guided core needle biopsy L1 vertebral body as discussed above. D/ / Vance Fitzpatrick MD / Vance Fitzpatrick MD Interpreting Provider: Vance Fitzpatrick MD Consult Discharge Plan - Plan Additional Instructions: Follow up with hem-onc. Referrals: Faustino King DO [Resident] - 11/27/16 11:00 am
[2016-11-20] MEDS: Sennosides 8.6 MG TABLET PO SCH ×2 (16:23→20:05)
--- NOTE | 2016-11-20 17:51 | Oncology Inp Progress Note ---
Date of Encounter: 11/20/16 Time of Encounter: 17:50 (1) Pulmonary emboli Current Visit: Yes Status: Acute Assessment and plan: Newly diagnosed. Hemodynamically stable. Risk factor is possibly prostate cancer. Patient is on lovenox. Can transition to xarelto tomorrow (xarelto 15 mg po bid for 21 days and then 20 mg po daily. No bridging required). Hypercoaguable workup will be performed in the outpatient setting if indicated. Qualifiers: Pulmonary embolism type: other Chronicity: acute Acute cor pulmonale presence: without acute cor pulmonale Qualified Code(s): I26.99 - Other pulmonary embolism without acute cor pulmonale (2) Prostate cancer Current Visit: Yes Status: Acute Assessment and plan: [place] 9, with CT Chest suggestive of metastatic disease, but recent bronchoscopy and biopsy was negative. He has been started on Lupron and is planned for RT + ADT. Recent MRI of the cervical and lumbar spine however showing multifocal osseous metastatic disease, and he underwent CT guided biopsy of the bone lesion today. (3) Back pain Current Visit: Yes Status: Acute Assessment and plan: MRI of the cervical and lumbar spine however showing multifocal osseous metastatic disease. There is no involvement Of spinal cord and no paraspinal mass seen. Patient is better controlled on OxyContin 10 mg twice a day with Percocet for breakthrough pain Qualifiers: Back pain location: low back pain Chronicity: acute Back pain laterality : bilateral Qualified Code(s): M54.5 - Low back pain Oncology: Subj Interval history: Patient is doing well. No acute events overnight. - Constitutional Vitals: Vital Signs Temp Pulse Resp BP Pulse Ox 11/20/16 15:55 98 F 70 16 113/90 98 11/20/16 13:05 63 16 145/105 100 11/20/16 13:03 66 14 127/84 100 11/20/16 13:00 68 16 127/84 100 11/20/16 12:42 65 16 135/86 11/20/16 11:18 97.8 F 59 16 119/77 99 11/20/16 08:29 98 11/20/16 06:48 98.1 F 60 16 107/68 98 11/20/16 04:44 97.7 F 61 18 104/73 96 11/20/16 00:53 97.7 F 73 18 109/66 98 11/19/16 22:57 98 11/19/16 21:29 97.6 F 61 18 111/73 98 Intake and Output 11/20/16 11/20/16 11/20/16 07:59 15:59 23:59 Intake Total 0 / 0 Balance 0 / 0 Intake: Oral 0 / 0 Other: # Voids 0 2 Weight 71.4 kg Patient Weight 11/20/16 23:59 Weight 71.4 kg General appearance: average body habitus - Head Head exam: Present: normal inspection - Eye Eye exam: Present: normal appearance - ENT ENT exam: Present: mucous membranes moist, normal exam - Neck Neck exam: Present: normal inspection. Absent: lymphadenopathy, tenderness - Respiratory Respiratory exam: Present: CTAB - Cardiovascular Cardiovascular exam: Present: RRR, +S1, +S2 - GI/Abdominal GI/Abdominal exam: Present: soft. Absent: rebound, rigid, tenderness - Extremities Exam Extremities exam: Present: normal inspection. Absent: joint swelling, pedal edema - Neurological Exam Neurological exam: Present: altered, oriented X3 Oncology: Obj Data - Labs CBC & Chem 7: 11/21/16 06:02 11/21/16 06:02 - Impressions Impressions Bone Biopsy CT 11/20/16 00:00 IMPRESSION: 1. CT guided core needle biopsy L1 vertebral body as discussed above. D/ / Vance Fitzpatrick MD / Vance Fitzpatrick MD Interpreting Provider: Vance Fitzpatrick MD - ABG Interpretation ABG results: PT/INR, D-dimer PT 11.7 Seconds (9.4-12.1) 11/18/16 05:13 D-Dimer 2255 ng/mLFEU (0-500) H 11/18/16 01:06 Consult Discharge Plan - Plan Additional Instructions: Follow up with hem-onc. Referrals: Faustino King DO [Resident] - 11/27/16 11:00 am Prescriptions: Nicotine Patch [Nicoderm] 21 mg TD DAILY #30 patch.td24 OxyCODONE ER (12 HR) [OxyCONTIN] 10 mg PO Q12HR #14 tab.er.12h
[2016-11-20] MEDS: *HR* Enoxaparin 80 MG/0.8 ML SYRINGE SQ SCH (18:30)
[2016-11-20] MEDS: *HR* OxyCODONE ER (12 HR) 10 MG TABLET PO SCH (18:30)
--- NOTE | 2016-11-20 19:02 | Venous Imaging Report ---
LE Venous Duplex Patient Name:Timo Enriquez Order Number:[id number] Procedure Date:11/18/2016 Date:1955ge:61 yrs Gender:Male Location:[facility] Room #: 2NE33 Hockey Scout:Chandu Lyon [facility] Referring MD:Elina Grossman MD cotton dispatcher:Ray Ramirez DO Reading MD:Braulio Kumar MD Primary Indications:Pulmonary embolism Secondary Indications: Risk Factors Yes/No Hx of Chemotherapy Yes Yes Impressions: Left lower extremity: normal superficial and deep exam. Lower extremity abnormal deep exam: right gastrocnemius vein demonstrates acute thrombosis. Recommendations: After imaging the patient returned to their room. Findings Venous Duplex Results: Right: Venous imaging of the lower extremity reveals full patency and normal vessel compressibility of the right distal iliac, right common femoral, right superficial femoral, right popliteal, right posterior tibial, right peroneal, right great saphenous and right lesser saphenous. Doppler signals in the evaluated veins were normal. There is an acute occlusive thrombus seen in the right gastrocnemius. It demonstrates an incompressible vein. Flow was absent and it did not augment. Left: Venous imaging of the lower extremity reveals full patency and normal vessel compressibility of the left distal iliac, left common femoral, left superficial femoral, left popliteal, left posterior tibial, left peroneal, left great saphenous and left lesser saphenous. Doppler signals in the evaluated veins were normal. Prior Study: No prior study available for comparison. Lower Extremity Venous Duplex Side Vein Compress Spontaneous Flow Augment Diameter (cm) Depth (cm) Right Distal Iliac Normal Yes Phasic Yes Right Common Femoral Normal Yes Phasic Yes Right Superficial Femoral Normal Yes Phasic Yes Right Popliteal Normal Yes Phasic Yes Right Posterior Tibial Normal Yes Phasic Yes Right Peroneal Normal Yes Phasic Yes Right Gastrocnemius None no Absent no Right Great Saphenous Normal Yes Phasic Yes Right Lesser Saphenous Normal Yes Phasic Yes Left Distal Iliac Normal Yes Phasic Yes Left Common Femoral Normal Yes Phasic Yes Left Superficial Femoral Normal Yes Phasic Yes Left Popliteal Normal Yes Phasic Yes Left Posterior Tibial Normal Yes Phasic Yes Left Peroneal Normal Yes Phasic Yes Left Great Saphenous Normal Yes Phasic Yes Left Lesser Saphenous Normal Yes Phasic Yes Updated by Braulio Kumar MD on 11/20/2016 6:57:00 PM electronically signed on 11/20/2016 6:57:13 PM with status of Final
[2016-11-21] MEDS: *HR* OxyCODONE/APAP 10/325 TABLET PO PRN ×3 (01:11→10:47)
[2016-11-21] MEDS: *HR* OxyCODONE ER (12 HR) 10 MG TABLET PO SCH (05:24)
[2016-11-21] MEDS: *HR* Enoxaparin 80 MG/0.8 ML SYRINGE SQ SCH (05:24)
[2016-11-21 06:17] LABS: Basophils % 0.6 %; Eosinophils # 0.2 K/mcL (0.0-0.6); Eosinophils % 4.3 %; Hematocrit 39.5 % (37.5-50.1); Hemoglobin 13.4 g/dL (12.9-16.9); Immature Granulocytes % 0.4 % (0-4); Lymphocytes # 1.7 K/mcL (0.6-4.6); Lymphocytes % 34.1 %; Mean Corpuscular HGB Conc 33.9 g/dL (31.6-35.5); Mean Corpuscular Hemoglobin 35.2 pg (28.0-33.3); Mean Corpuscular Volume 103.7 fL (83.0-100.0); Mean Platelet Volume 10.1 fL (9.4-12.4); Monocytes # 0.7 K/mcL (0.0-1.3); Monocytes % 13.6 %; Neutrophils # 2.3 K/mcL (1.6-8.9); Platelet Count 144 K/mcL (140-400); Red Blood Count 3.81 M/mcL (4.19-5.50)
[2016-11-21 06:40] LABS: BUN/Creatinine Ratio 8 (6-26); Blood Urea Nitrogen 7 mg/dL (8-26); Calcium 8.9 mg/dL (8.6-10.8); Carbon Dioxide 28 mEq/L (19-29); Chloride 106 mEq/L (98-109); Glucose 90 mg/dL (70-99); Osmolality,Calculated 286 (280-300); Potassium 4.2 mEq/L (3.5-4.5); Sodium 139 mEq/L (136-145); eGFR For African Americans > 60 (> 60); eGFR For Non-African Americans > 60 (> 60)
[2016-11-21] MEDS: Nicotine 21 MG PATCH.TD24 TD SCH (08:51)
[2016-11-21] MEDS: Sennosides 8.6 MG TABLET PO SCH (08:51)
[2016-11-21] MEDS: Triamcinolone Acet 0.1% CRM 15 GM TUBE TP SCH (08:52)
[2016-11-21] MEDS ORDERED: *HR* Rivaroxaban 15 MG TABLET PO ONE (10:20)
--- NOTE | 2016-11-21 10:29 | Discharge Summary ---
<Volodymyr Coto - Last Filed: 11/21/16 11:47> Date of Encounter: 11/21/16 Time of Encounter: 10:10 - Discharge Diagnosis (1) Pulmonary emboli Priority: Primary Status: Acute Qualifiers: Pulmonary embolism type: other Chronicity: acute Acute cor pulmonale presence: without acute cor pulmonale Qualified Code(s): I26.99 - Other pulmonary embolism without acute cor pulmonale (2) Prostate cancer metastatic to bone Priority: Secondary Status: Chronic (3) Back pain Priority: Secondary Status: Acute Qualifiers: Back pain location: low back pain Chronicity: acute Back pain laterality : bilateral Sciatica presence: without sciatica Qualified Code(s): M54.5 - Low back pain (4) Bone lesion Priority: Primary Status: Acute - Discharge Medications Prescriptions: OxyCODONE ER (12 HR) [OxyCONTIN] 10 mg PO Q12HR #14 tab.er.12h Nicotine Patch [Nicoderm] 21 mg TD DAILY #30 patch.td24 Home Medications: Betamethasone Valerate 1 appl TP BID 11/11/16 [History] Ciclopirox 1 appl TP 2XW 11/11/16 [History] Page-3/Dha/Epa/Fish Oil [Fish Oil 1,000 mg Softgel] 1,000 mg PO DAILY 11/11/16 [History] Oxycodone HCl/Acetaminophen [Percocet 10-325 mg Tablet] 1 each PO Q4H PRN #30 tablet 11/19/16 [Rx] Rivaroxaban [Xarelto] 15 mg PO BID 21 Days 11/19/16 [Rx] Nicotine Patch [Nicoderm] 21 mg TD DAILY #30 patch.td24 11/21/16 [Rx] OxyCODONE ER (12 HR) [OxyCONTIN] 10 mg PO Q12HR #14 tab.er.12h 11/21/16 [Rx] OxyCODONE/APAP 10/325 [Percocet 10/325 MG] 1 each PO Q4HR PRN #0 tablet [Rx] Allergies/Adverse Reactions: Allergies NSAIDS (Non-Steroidal Anti-Inflamma Adverse Reaction (Severe, Verified 09/09/16 16:32) Vomiting Cyclobenzaprine Adverse Reaction (Intermediate, Verified 09/09/16 16:32) Agitated Procedures/tests Complete & Pending: Procedures Performed prior 72 hours Category Date Time Status CT biopsy bone deep [CT] Routine Cat Scan 11/20/16 Completed Date of admission: 11/19/16 15:38 Primary care physician: Ray Griffiths Discharging clinician: Arie Solorio Anticipated date of discharge: 11/21/16 - Patient Status Disposition: Home, Self-Care Condition: Serious Functional capacity at discharge: independent ambulation Overall status at discharge: patient is progressing back to baseline - Discharge Instructions Instructions: Pulmonary Embolism (DC), Lung Cancer (DC), Prostate Cancer (DC), Basal Cell Carcinoma (DC), Deep Venous Thrombosis (DC) Follow Up With: Faustino King DO [Resident] - 11/27/16 11:00 am Marlo Ngo MD [Partnered Physician] - (2-3 weeks, PE with metastatic prostate cancer) Additional Instructions: Follow up with hem-onc. - Diet and Activity Activity: increase activity as tolerated Diet: advance to your usual diet Hospital course: Mr. Enriquez is a 61 year old male. Patient would present to [place] with chief concern: back and chest pain, with workup disclosing multiple pulmonary emboli. Comorbidities include: Metastatic prostate cancer, followed by Dr. Ngo of [facility], HTN Hospital course: Patient started on heparin drip, volume support with fluids. Doppler US disclosed Right gastrocnemius vein demonstrates acute thrombosis. Left LE normal superficial and deep exam. Echo disclosed EF 60%, no evidence of pulmonary HTN, VHD or right heart strain. Imaging studies disclosed: Chest X-Ray 11/18/16 01:06 IMPRESSION: No acute cardiopulmonary disease. The pulmonary nodules noted on the chest CT of 10/14/2016 are not well visualized by chest x-ray. Chest CTA 11/18/16 02:07 IMPRESSION: 1. Small segmental/ subsegmental pulmonary emboli identified in the right lower lobe and possibly of the right upper lobe. 2. No evidence of pulmonary artery hypertension or right heart strain by CT. 3. New and slightly larger bilateral pulmonary nodules suspicious for metastatic disease. 4. Stable mild compression deformities of the T12 and L1 vertebral bodies. Lucent lesion in the T12 vertebral body may represent a prominent Schmorl's node. Cervical Spine MRI 11/18/16 12:29 IMPRESSION: Abnormal bone marrow signal in the entire T2 vertebral body and in the posterior arch of C1 with enhancement, likely related to metastatic disease, new since June 25, 2015. No definite evidence of acute compression fracture. Multilevel degenerative disc disease as described above, grossly stable. Lumbar Spine MRI 11/18/16 12:29 IMPRESSION: Multifocal osseous metastatic disease. L1 superior endplate Schmorl's node deformity with suspected additional acute-subacute superior endplate fracture. There is minimal height loss and no significant dorsal osseous retropulsion. Bone Biopsy CT 11/20/16 00:00 IMPRESSION: 1. CT guided core needle biopsy L1 vertebral body as discussed above. Oncology consult for PE, would recommend xarelto, no bridging required. Due to recalcitrant back pain with known metastatic prostate cancer, he would undergo CT-guided L-spine biopsy, path pending. SW consult for Xarelto, patient would be given voucher as well. Per documentation, OPTOMETRIC ASSISTANT was instructed to give patient 30 day coupon for xarelto , and that PCP would complete prior auth. OPTOMETRIC ASSISTANT emphasized importance to patient of following up with PCP to get prior auth for xarleto. At time of discharge, patient was clinically improved, hemodynamically stable, progressing to baseline, and agreeable with plan of care. Patient was advised to seek immediate medical attention for any new or worsening symptoms including but not limited to fever, chills, chest pain, chest pressure, dyspnea, cough, abdominal pain, nausea, vomiting, diarrhea, bloody stool, urine and the patient voiced understanding. Patient will follow-up with Dr Ngo. Start Xarelto 15mg PO BID, for 21 days. OARRS reviewed and appropriate. Known metastatic prostate cancer. He has significant back pain with poor break-through coverage when he sleeps. Oncology recommended addition of oxycontin 10mg BID in addition to his current regimen. - Time Spent with Patient Total time spent providing and/or coordinating discharge services: Greater than 30 minutes - Constitutional Vitals: Temp Pulse Resp BP Pulse Ox 97.5 F L 60 18 110/77 97 11/21/16 05:25 11/21/16 05:25 11/21/16 05:25 11/21/16 05:25 11/21/16 05:25 General appearance: Present: A&O X 3, pleasant, no acute distress - Head Head exam: Present: atraumatic, normocephalic - Eye Eye exam: Present: EOMI, sclera anicteric - ENT ENT exam: Present: mucous membranes moist - Neck Neck exam general surgery: Present: supple, trachea midline - Respiratory Respiratory exam: Present: CTAB. Absent: rhonchi, wheezes - Cardiovascular Cardiovascular exam: Present: +S1, +S2. Absent: irregular rhythm, JVD - GI/Abdominal GI/Abdominal exam: Present: soft, no peritoneal signs. Absent: tenderness - Extremities Exam Extremities exam: Present: warm, radial pulses palpable and symetrical. Absent : pedal edema - Neurological Exam Neurological exam: Present: strengths equal and symetr throughout. Absent: speech deficit <Arie Solorio - Last Filed: 11/21/16 18:32> Date of Encounter: 11/21/16 - Discharge Diagnosis (1) Pulmonary emboli Status: Acute Qualifiers: Pulmonary embolism type: other Chronicity: acute Acute cor pulmonale presence: without acute cor pulmonale Qualified Code(s): I26.99 - Other pulmonary embolism without acute cor pulmonale (2) Prostate cancer metastatic to bone Status: Chronic (3) Abnormal LFTs Priority: Secondary Status: Acute (4) Tobacco abuse Priority: Secondary Status: Chronic Procedures/tests Complete & Pending: Procedures Performed prior 72 hours Category Date Time Status CT biopsy bone deep [CT] Routine Cat Scan 11/20/16 Completed Date of admission: 11/19/16 15:38 Primary care physician: [facility] course: Mr. Enriquez is a 61 year old male - Time Spent with Patient Total time spent providing and/or coordinating discharge services: 37min Greater than 30 minutes - Constitutional Vitals: Temp Pulse Resp BP Pulse Ox 97.5 F L 59 18 117/77 97 11/21/16 10:59 11/21/16 10:59 11/21/16 10:59 11/21/16 10:59 11/21/16 10:59 - Attending Attestation I examined this patient and my medical decision-making was reviewed with the Resident Physician on 11/21/16. I agree with the documented findings, disposition and treatment plan as described except to the extent set forth below. Mr. Enriquez feels OK. He is afebrile with stable vitals. He is ready for discharge on PO Xarelto. Exam Alert. Comfortable Heart reg No wheeze Plan D/C home Follow up with PCP and oncology.
[2016-11-21 11:01] VITALS: BP 117/77
--- NOTE | 2016-11-21 11:11 | Oncology Inp Progress Note ---
Date of Encounter: 11/21/16 Time of Encounter: 11:10 (1) Pulmonary emboli Status: Acute Assessment and plan: Newly diagnosed. Hemodynamically stable. Risk factor is possibly prostate cancer. Patient is on lovenox. Can transition to xarelto today(xarelto 15 mg po bid for 21 days and then 20 mg po daily. No bridging required). Hypercoaguable workup will be performed in the outpatient setting if indicated. Qualifiers: Pulmonary embolism type: other Chronicity: acute Acute cor pulmonale presence: without acute cor pulmonale Qualified Code(s): I26.99 - Other pulmonary embolism without acute cor pulmonale (2) Prostate cancer Status: Acute Assessment and plan: [place] 9, with CT Chest suggestive of metastatic disease, but recent bronchoscopy and biopsy was negative. He has been started on Lupron and is planned for RT + ADT. Recent MRI of the cervical and lumbar spine however showing multifocal osseous metastatic disease, and he underwent CT guided biopsy of the bone lesion yesterday. (3) Back pain Status: Acute Assessment and plan: MRI of the cervical and lumbar spine however showing multifocal osseous metastatic disease. There is no involvement Of spinal cord and no paraspinal mass seen. Patient is better controlled on OxyContin 10 mg twice a day with Percocet for breakthrough pain Qualifiers: Back pain location: low back pain Chronicity: acute Back pain laterality : bilateral Sciatica presence: without sciatica Oncology: Subj Interval history: No acute events overnight. - Constitutional Vitals: Vital Signs Temp Pulse Resp BP Pulse Ox 11/21/16 10:59 97.5 F L 59 18 117/77 97 11/21/16 05:25 97.5 F L 60 18 110/77 97 11/21/16 00:35 97.6 F 57 16 109/76 97 11/20/16 20:19 97.6 F 69 18 123/83 98 11/20/16 15:55 98 F 70 16 113/90 98 11/20/16 15:00 106/74 11/20/16 14:30 109/74 11/20/16 13:55 116/76 11/20/16 13:40 120/92 11/20/16 13:25 124/86 11/20/16 13:10 115/86 11/20/16 13:05 63 16 145/105 100 11/20/16 13:03 66 14 127/84 100 11/20/16 13:00 68 16 127/84 100 11/20/16 12:42 65 16 135/86 11/20/16 11:18 97.8 F 59 16 119/77 99 Intake and Output 11/20/16 11/21/16 11/21/16 23:59 07:59 15:59 Intake Total 220 / 220 100 / 100 480 / 480 Output Total 350 / 350 Balance -130 / -130 100 / 100 480 / 480 Intake: Oral 220 / 220 100 / 100 480 / 480 Output: Urine 350 / 350 Other: Meal Dinner Breakfast Percent of Meal Consumed 95% 100% # Voids 0 1 Weight 70.7 kg Patient Weight 11/21/16 23:59 Weight 70.7 kg General appearance: average body habitus, no acute distress - Head Head exam: Present: atraumatic, normal inspection, normocephalic - Eye Eye exam: Present: EOMI, normal appearance - ENT ENT exam: Present: mucous membranes moist, normal exam - Neck Neck exam: Absent: lymphadenopathy, tenderness - Respiratory Respiratory exam: Present: CTAB - Cardiovascular Cardiovascular exam: Present: RRR, +S1, +S2 - GI/Abdominal GI/Abdominal exam: Present: soft. Absent: organomegaly, rebound, rigid, tenderness - Extremities Exam Extremities exam: Present: normal inspection. Absent: pedal edema Oncology: Obj Data - Labs CBC & Chem 7: 11/21/16 06:02 11/21/16 06:02 Labs: Laboratory Results - last 24 hr 11/21/16 11/21/16 06:02 06:02 WBC 4.8 RBC 3.81 L Hgb 13.4 Hct 39.5 MCV 103.7 H MCH 35.2 H MCHC 33.9 RDW 13.0 Plt Count 144 MPV 10.1 Immature Gran % 0.4 Seg Neutrophils % 47.0 Lymphocytes % 34.1 Monocytes % 13.6 Eosinophils % 4.3 Basophils % 0.6 Neutrophils # 2.3 Lymphocytes # 1.7 Monocytes # 0.7 Eosinophils # 0.2 Basophils # 0.0 Sodium 139 Potassium 4.2 Chloride 106 Carbon Dioxide 28 BUN 7 L Creatinine 0.84 Est GFR ( Amer) > 60 Est GFR (Non-Af Amer) > 60 BUN/Creatinine Ratio 8 Glucose 90 Calculated Osmolality 286 Calcium 8.9 - Impressions Impressions Bone Biopsy CT 11/20/16 00:00 IMPRESSION: 1. CT guided core needle biopsy L1 vertebral body as discussed above. D/ / Vance Fitzpatrick MD / Vance Fitzpatrick MD Interpreting Provider: Vance Fitzpatrick MD - ABG Interpretation ABG results: PT/INR, D-dimer PT 11.7 Seconds (9.4-12.1) 11/18/16 05:13 D-Dimer 2255 ng/mLFEU (0-500) H 11/18/16 01:06 Consult Discharge Plan - Plan Instructions: Pulmonary Embolism (DC), Lung Cancer (DC), Prostate Cancer (DC), Basal Cell Carcinoma (DC), Deep Venous Thrombosis (DC) Additional Instructions: Follow up with hem-onc. Referrals: Faustino King DO [Resident] - 11/27/16 11:00 am Marlo Ngo MD [Partnered Physician] - (2-3 weeks, PE with metastatic prostate cancer) Prescriptions: Nicotine Patch [Nicoderm] 21 mg TD DAILY #30 patch.td24 OxyCODONE ER (12 HR) [OxyCONTIN] 10 mg PO Q12HR #14 tab.er.12h
== END 2016-11-21 13:20 | disposition home or self-care (01) | DRG 134 ==
LOC: 2NENU 00:32 → EMEROO 00:32 → SUATTDRO 04:27 → 2NENU 04:50 → SUATTDRO 11-19 15:38
PROVIDERS: ADMIT Internal Medicine; ATTEND Internal Medicine

== ENCOUNTER 2016-12-03 11:01 | Inpatient (IN) ==
[2016-12-03] MEDS ORDERED: 0.9 % Sodium Chloride 1,000 ML IVC ONE (11:13)
--- NOTE | 2016-12-03 11:20 | Emergency Department Note ---
Disposition Clinical Impression: Altered mental status, Hip dislocation, right, History of treatment for malignancy, Prostate cancer, Metastatic disease, Pulmonary lesion, Compression fracture, Lumbar vertebral fracture, Abnormal liver function tests, Hematuria, Rhabdomyolysis, Constipation, Drug overdose Disposition: Admitted As Inpatient Referrals: Faustino King DO [Primary Care Provider] - Forms: ED Satisfaction Letter General Adult HPI - General Chief complaint: ED Altered Mental Status Stated complaint: AMS/ right hip pain Time Seen by Provider: 12/03/16 11:13 Source: EMS Limitations: altered mental status - History of Present Illness HPI Narrative: 61-year-old male reports emergency department via EMS, there are concerns for confusion and hip pain. The patient has a history of a hip replacement per nursing, he also has a history of CHF and hypertension. There is no history of acute trauma. Reportedly the patient was brought to the EMS station by somebody. EMS brought the patient to the emergency department, confusion is the main concern. The patient is unable to give a clear history. Per reports the patient was in this emergency department yesterday for a hip dislocation. Per the patient's chart he has a history of malignancy as well as PE and may be on anticoagulant medication, Xarelto. There is no history of bleeding. Pain Scale: 8 - Related Data Home Medications Medication Instructions Recorded Confirmed RX: Tornado-3/Dha/Epa/Fish Oil [Fish 1,000 mg PO DAILY 11/11/16 12/03/16 Oil 1,000 mg Softgel] OxyCODONE ER (12 HR) [OxyCONTIN] 10 mg PO Q12HR 12/03/16 12/03/16 OxyCODONE/APAP 10/325 [Percocet 1 each PO Q4HR PRN 12/03/16 12/03/16 10/325 MG] Rivaroxaban [Xarelto] 15 mg PO BID 12/03/16 12/03/16 Previous Rx's Medication Instructions Recorded RX: Nicotine Patch [Nicoderm] 21 mg TD DAILY #30 patch.td24 11/21/16 Morphine Sulfate SR (12 HR) [MS 15 mg PO Q12HR #60 tablet.er 11/26/16 Contin] RX: Morphine Sulfate 15 mg PO Q2H PRN #60 tab 11/26/16 Docusate Sodium [Colace] 100 mg PO BID #60 capsule 05/01/17 Sennosides [Senna] 2 tab PO HS #60 tablet 11/30/16 Allergies Allergy/AdvReac Type Severity Reaction Status Date / Time NSAIDS (Non-Steroidal AdvReac Severe Vomiting Verified 11/30/16 18:19 Anti-Inflamma Cyclobenzaprine AdvReac Intermediate Agitated Verified 11/30/16 18:19 Limitations: ROS unobtainable due to patients medical condition Past Medical History - Past Medical History Medical history: Reports: arthritis, cancer, CHF, hypertension, other Surgical history: Reports: hip replacement, orthopedic, other Psychiatric history: Reports: anxiety - Social History Smoking Status: Current every day smoker Smokeless Tobacco Status: No Alcohol use: Reports: occasionally, heavy, recent Drug use: Reports: marijuana Physical Exam - General Limitations: altered mental status General appearance: other - Head Head exam: atraumatic, normocephalic, normal inspection - Eye Eye exam: Present: normal appearance, PERRL, EOMI, miosis. Absent: scleral icterus, conjunctival injection - ENT ENT exam: normal exam, normal oropharynx, mucous membranes moist, TM's normal bilaterally, normal external ear exam - Neck Neck exam: Present: normal inspection, full ROM, trachea midline. Absent: tenderness - Chest Chest inspection: Present: normal inspection, symmetric chest wall rise. Absent : tenderness - Respiratory Respiratory exam: Present: normal lung sounds bilaterally. Absent: respiratory distress, accessory muscle use, prolonged expiratory phase - Cardiovascular Cardiovascular exam: Present: regular rate, normal rhythm, normal heart sounds - Abdominal Exam Abdominal exam: Present: soft, Non-Tender, normal bowel sounds. Absent: tenderness, distention, guarding, rebound, rigidity, trauma - Extremities Exam Extremities exam: Present: full ROM, normal capillary refill, pedal edema, other (All extremities warm and well perfused without cyanosis. Full range of motion of the wrists elbows shoulders ankles knees but there is pain with movement of the right hip. No obvious trauma appreciated. No evidence of acute neurovascular or neuromuscular compromise. All extremities are warm and well perfused.). Absent: joint swelling, calf tenderness - Expanded Lower Extremity Exam Hip/Pelvis exam: Present: internal rotation, other (Right lower extremity) Knee exam: Present: full ROM. Absent: tenderness Lower leg exam: Present: full ROM. Absent: tenderness, Homans' sign Ankle exam: Present: full ROM. Absent: tenderness Foot/toe exam: Present: full ROM. Absent: tenderness Neurovascular/Tendon exam: Present: normal capillary refill. Absent: motor deficit, sensory deficit, tendon deficit, extremity cold to touch, pallor - Back Exam Back exam: Present: normal inspection, full ROM. Absent: tenderness, CVA tenderness (R), CVA tenderness (L), vertebral tenderness - Neurological Exam Neurological exam: Present: alert, oriented X3, CN II-XII intact. Absent: motor sensory deficit - Psychiatric Psychiatric exam: Present: normal affect - Skin Skin exam: Present: warm, dry, intact, normal color. Absent: rash, cyanosis, diaphoresis, erythema, pallor, mottled Course Course Narrative: The patient was somewhat more alert, he tried to stand up been producing urine and was unable to bear weight on his right leg and fell forward and bumped his head slightly on the door frame, minor skin injury noted. Tetanus booster ordered. - Reevaluation(s) Reevaluation #1: The patient had miosis, Narcan was given 1 mg IV, the patient became more responsive and alert. Glucose 112. EKG nonacute. Reevaluation #2: The patient remained confused but was alert. He climbed out of bed and was crawling on the floor, he was uncooperative not highly combative, obviously not Mentating properly. Soft restraints were ordered for the risks to ensure the patient did not harm himself by climbing out of bed or falling, he has a hip dislocation at this time. Restraints were placed to protect the patient from harming himself, he arty got out of bed once and hit his head. in the ED Reevaluation #3: The patient became very agitated and belligerent using foul language record towards staff. - Consultations Consultation #1: Consult with the hospitalist who asked me to consult with the gauge checker. The gauge checker came to the bedside in the ED and felt the patient was stable for a non-ICU bed. We paged the orthopedist learning consultant per the scheduled , one pharmacy was not learning consultant but was out of town on vacation, we consulted Dr. Valentine , the acting orthopedist learning consultant who will assist in the reduction of the patient 's hip. The hospitalist was reconsult in for admission. Consultation #2: The patient was somewhat somnolent ED, a second dose of Narcan 2 mg was given, the patient became arousable status post. Vital Signs Temperature 98.5 F 12/03/16 11:04 Pulse Rate 82 12/03/16 11:04 Respiratory Rate 16 12/03/16 11:04 Blood Pressure 122/90 12/03/16 11:04 O2 Sat by Pulse Oximetry 100 12/03/16 11:04 Temperature 98.5 F 12/03/16 11:04 Pulse Rate 112 12/03/16 15:37 Respiratory Rate 20 12/03/16 15:37 Blood Pressure 183/91 12/03/16 15:37 O2 Sat by Pulse Oximetry 98 12/03/16 15:37 Oxygen Delivery Oxygen Delivery Room Air Medical Decision Making - MDM Narrative Medical decision making narrative: The patient appears to be significantly altered in his mental status probably secondary to medications. He is in a ED second time for hip dislocation. He was unable to give a clear history as to the nature of his dislocation, current complaints, or history regarding potential injury. CT scan head spine chest abdomen and pelvis obtained. The patient appears to have an acute lumbar compression fracture, changes suggestive of thoracic metastatic disease, without acute intrathoracic intracerebral or intra-abdominal process. The patient has been confused, occasionally belligerent, and remains somnolent. Based on his altered mental status, he is homeless, second visit to the ED for hip dislocation, acute compression fracture, inability for self-care, I thought it be appropriate to admit the patient to the hospital for further evaluation and management. Based on the patient's recurrent dislocation of the hip and confusion with trauma I thought it would be appropriate to consult the orthopedist for controlled reduction of the hip in the hospital. The patient is currently stable. See previous note regarding consultation sequence. The hospitalist will admit the patient. - Lab Data Lab results reviewed: Yes I reviewed the patient's lab results. Result diagrams: 12/03/16 12:19 12/03/16 12:19 Lab Results 12/03/16 12/03/16 12/03/16 Range/Units 11:15 11:59 11:59 WBC (4.3-11.1) K/mcL RBC (4.19-5.50) M/mcL Hgb (12.9-16.9) g/dL Hct (37.5-50.1) % MCV (83.0-100.0) fL MCH (28.0-33.3) pg MCHC (31.6-35.5) g/dL RDW (11.5-14.5) % Plt Count (140-400) K/mcL MPV (9.4-12.4) fL Immature Gran % (0-4) % Seg Neutrophils % % Lymphocytes % % Monocytes % % Eosinophils % % Basophils % % Neutrophils # (1.6-8.9) K/mcL Lymphocytes # (0.6-4.6) K/mcL Monocytes # (0.0-1.3) K/mcL Eosinophils # (0.0-0.6) K/mcL Basophils # (0.0-0.2) K/mcL PT (9.4-12.1) Seconds INR APTT (26.0-36.0) Seconds Sodium (136-145) mEq/L Potassium (3.5-4.5) mEq/L Chloride (98-109) mEq/L Carbon Dioxide (19-29) mEq/L BUN (8-26) mg/dL Creatinine (0.72-1.25) mg/dL Est GFR ( Amer) (> 60) Est GFR (Non-Af Amer) (> 60) BUN/Creatinine Ratio (6-26) Glucose (70-99) mg/dL POC Glucose 112 H (58-89) Calculated Osmolality (280-300) Lactic Acid (0.5-2.2) mmol/L Calcium (8.6-10.8) mg/dL Total Bilirubin (0.2-1.2) mg/dL Direct Bilirubin (0.0-0.5) mg/dL Indirect Bilirubin (0.0-1.2) mg/dL AST (5-34) Units/L ALT (0-55) Units/L Alkaline Phosphatase (38-126) Units/L Ammonia (18-72) mcmol/L Creatine Kinase (30-200) Units/L Troponin I (0-0.03) ng/mL C-Reactive Protein (Less than 5) mg/L B-Natriuretic Peptide (0-100) pg/mL Serum Total Protein (6.0-8.3) g/dL Albumin (3.5-5.0) g/dL Globulin (2.4-3.5) g/dL Albumin/Globulin Ratio (1.1-2.2) TSH (0.350-4.840) mcIU/mL Urine Color Yellow (Yellow) Urine Clarity Clear (Clear) Urine pH 6.5 (5.0-8.0) pH Units Ur Specific [place] 1.011 (1.010-1.025) Urine Protein Negative (Neg-Trace) mg/dL Urine Glucose (UA) Normal (Normal) mg/dL Urine Ketones Negative (Negative) mg/dL Urine Blood Moderate H (Negative) Urine Nitrite Negative (Negative) Urine Bilirubin Negative (Negative) Urine Urobilinogen Normal (Normal) mg/dL Ur Leukocyte Esterase Negative (Negative) Urine Microscopic RBC 5-15 H (0-3) per hpf Urine Microscopic WBC 0-3 (0-3) per hpf Ur Squamous Epith Cells Moderate H (None-Few) per lpf Urine Bacteria None Seen (None-Few) per hpf Hyaline Casts None Seen (None-Few) per lpf Ur Culture Indicated? NO (NO) Salicylates (15-30) mg/dL Urine Opiates Screen Positive H (Fniymx=896) ng/mL Acetaminophen (10-30) mcg/mL Ur Barbiturates Screen Negative (Uwxvkk=115) ng/mL Ur Phencyclidine Scrn Negative (Cutoff=25) ng/mL Ur Amphetamines Screen Negative (Lxjjwp=6679) ng/mL U Benzodiazepines Scrn Positive H (Mopvam=471) ng/mL Urine Cocaine Screen Negative (Cutoff= 300) ng/mL U Marijuana (THC) Screen Negative (Cutoff = 50) ng/mL Ethyl Alcohol (0-10) mg/dL Specimen Rejected 12/03/16 12/03/16 12/03/16 Range/Units 12:19 12:19 12:19 WBC 5.5 (4.3-11.1) K/mcL RBC 4.85 (4.19-5.50) M/mcL Hgb 16.8 (12.9-16.9) g/dL Hct 49.3 (37.5-50.1) % MCV 101.6 H (83.0-100.0) fL MCH 34.6 H (28.0-33.3) pg MCHC 34.1 (31.6-35.5) g/dL RDW 12.2 (11.5-14.5) % Plt Count 149 (140-400) K/mcL MPV 10.8 (9.4-12.4) fL Immature Gran % 0.5 (0-4) % Seg Neutrophils % 63.3 % Lymphocytes % 22.3 % Monocytes % 10.9 % Eosinophils % 2.5 % Basophils % 0.5 % Neutrophils # 3.5 (1.6-8.9) K/mcL Lymphocytes # 1.2 (0.6-4.6) K/mcL Monocytes # 0.6 (0.0-1.3) K/mcL Eosinophils # 0.1 (0.0-0.6) K/mcL Basophils # 0.0 (0.0-0.2) K/mcL PT 13.8 H (9.4-12.1) Seconds INR 1.3 APTT 31.7 (26.0-36.0) Seconds Sodium (136-145) mEq/L Potassium (3.5-4.5) mEq/L Chloride (98-109) mEq/L Carbon Dioxide (19-29) mEq/L BUN (8-26) mg/dL Creatinine (0.72-1.25) mg/dL Est GFR ( Amer) (> 60) Est GFR (Non-Af Amer) (> 60) BUN/Creatinine Ratio (6-26) Glucose (70-99) mg/dL POC Glucose (58-89) Calculated Osmolality (280-300) Lactic Acid (0.5-2.2) mmol/L Calcium (8.6-10.8) mg/dL Total Bilirubin (0.2-1.2) mg/dL Direct Bilirubin (0.0-0.5) mg/dL Indirect Bilirubin (0.0-1.2) mg/dL AST (5-34) Units/L ALT (0-55) Units/L Alkaline Phosphatase (38-126) Units/L Ammonia 25 (18-72) mcmol/L Creatine Kinase (30-200) Units/L Troponin I (0-0.03) ng/mL C-Reactive Protein (Less than 5) mg/L B-Natriuretic Peptide (0-100) pg/mL Serum Total Protein (6.0-8.3) g/dL Albumin (3.5-5.0) g/dL Globulin (2.4-3.5) g/dL Albumin/Globulin Ratio (1.1-2.2) TSH (0.350-4.840) mcIU/mL Urine Color (Yellow) Urine Clarity (Clear) Urine pH (5.0-8.0) pH Units Ur Specific [place] (1.010-1.025) Urine Protein (Neg-Trace) mg/dL Urine Glucose (UA) (Normal) mg/dL Urine Ketones (Negative) mg/dL Urine Blood (Negative) Urine Nitrite (Negative) Urine Bilirubin (Negative) Urine Urobilinogen (Normal) mg/dL Ur Leukocyte Esterase (Negative) Urine Microscopic RBC (0-3) per hpf Urine Microscopic WBC (0-3) per hpf Ur Squamous Epith Cells (None-Few) per lpf Urine Bacteria (None-Few) per hpf Hyaline Casts (None-Few) per lpf Ur Culture Indicated? (NO) Salicylates (15-30) mg/dL Urine Opiates Screen (Rnqydy=310) ng/mL Acetaminophen (10-30) mcg/mL Ur Barbiturates Screen (Kgfmqi=618) ng/mL Ur Phencyclidine Scrn (Cutoff=25) ng/mL Ur Amphetamines Screen (Undzkd=6954) ng/mL U Benzodiazepines Scrn (Qlozwf=513) ng/mL Urine Cocaine Screen (Cutoff= 300) ng/mL U Marijuana (THC) Screen (Cutoff = 50) ng/mL Ethyl Alcohol (0-10) mg/dL Specimen Rejected 12/03/16 12/03/16 12/03/16 Range/Units 12:19 12:19 12:19 WBC (4.3-11.1) K/mcL RBC (4.19-5.50) M/mcL Hgb (12.9-16.9) g/dL Hct (37.5-50.1) % MCV (83.0-100.0) fL MCH (28.0-33.3) pg MCHC (31.6-35.5) g/dL RDW (11.5-14.5) % Plt Count (140-400) K/mcL MPV (9.4-12.4) fL Immature Gran % (0-4) % Seg Neutrophils % % Lymphocytes % % Monocytes % % Eosinophils % % Basophils % % Neutrophils # (1.6-8.9) K/mcL Lymphocytes # (0.6-4.6) K/mcL Monocytes # (0.0-1.3) K/mcL Eosinophils # (0.0-0.6) K/mcL Basophils # (0.0-0.2) K/mcL PT (9.4-12.1) Seconds INR APTT (26.0-36.0) Seconds Sodium 139 (136-145) mEq/L Potassium 3.6 (3.5-4.5) mEq/L Chloride 98 (98-109) mEq/L Carbon Dioxide 28 (19-29) mEq/L BUN 8 (8-26) mg/dL Creatinine 0.82 (0.72-1.25) mg/dL Est GFR ( Amer) > 60 (> 60) Est GFR (Non-Af Amer) > 60 (> 60) BUN/Creatinine Ratio 10 (6-26) Glucose 89 (70-99) mg/dL POC Glucose (58-89) Calculated Osmolality 286 (280-300) Lactic Acid (0.5-2.2) mmol/L Calcium 10.1 (8.6-10.8) mg/dL Total Bilirubin 1.4 H (0.2-1.2) mg/dL Direct Bilirubin 0.6 H (0.0-0.5) mg/dL Indirect Bilirubin 0.8 (0.0-1.2) mg/dL AST 104 H (5-34) Units/L ALT 57 H (0-55) Units/L Alkaline Phosphatase 186 H (38-126) Units/L Ammonia (18-72) mcmol/L Creatine Kinase 968 H (30-200) Units/L Troponin I 0.00 (0-0.03) ng/mL C-Reactive Protein 44 H (Less than 5) mg/L B-Natriuretic Peptide 31 (0-100) pg/mL Serum Total Protein 8.3 (6.0-8.3) g/dL Albumin 3.8 (3.5-5.0) g/dL Globulin 4.5 H (2.4-3.5) g/dL Albumin/Globulin Ratio 0.8 L (1.1-2.2) TSH 1.979 (0.350-4.840) mcIU/mL Urine Color (Yellow) Urine Clarity (Clear) Urine pH (5.0-8.0) pH Units Ur Specific [place] (1.010-1.025) Urine Protein (Neg-Trace) mg/dL Urine Glucose (UA) (Normal) mg/dL Urine Ketones (Negative) mg/dL Urine Blood (Negative) Urine Nitrite (Negative) Urine Bilirubin (Negative) Urine Urobilinogen (Normal) mg/dL Ur Leukocyte Esterase (Negative) Urine Microscopic RBC (0-3) per hpf Urine Microscopic WBC (0-3) per hpf Ur Squamous Epith Cells (None-Few) per lpf Urine Bacteria (None-Few) per hpf Hyaline Casts (None-Few) per lpf Ur Culture Indicated? (NO) Salicylates < 5.0 L (15-30) mg/dL Urine Opiates Screen (Bhnvhf=988) ng/mL Acetaminophen < 1.0 L (10-30) mcg/mL Ur Barbiturates Screen ([place]=922) ng/mL Ur Phencyclidine Scrn (Cutoff=25) ng/mL Ur Amphetamines Screen (Bqpovd=3633) ng/mL U Benzodiazepines Scrn (Luipxv=311) ng/mL Urine Cocaine Screen (Cutoff= 300) ng/mL U Marijuana (THC) Screen (Cutoff = 50) ng/mL Ethyl Alcohol < 10 (0-10) mg/dL Specimen Rejected 12/03/16 12/03/16 Range/Units 12:19 13:03 WBC (4.3-11.1) K/mcL RBC (4.19-5.50) M/mcL Hgb (12.9-16.9) g/dL Hct (37.5-50.1) % MCV (83.0-100.0) fL MCH (28.0-33.3) pg MCHC (31.6-35.5) g/dL RDW (11.5-14.5) % Plt Count (140-400) K/mcL MPV (9.4-12.4) fL Immature Gran % (0-4) % Seg Neutrophils % % Lymphocytes % % Monocytes % % Eosinophils % % Basophils % % Neutrophils # (1.6-8.9) K/mcL Lymphocytes # (0.6-4.6) K/mcL Monocytes # (0.0-1.3) K/mcL Eosinophils # (0.0-0.6) K/mcL Basophils # (0.0-0.2) K/mcL PT (9.4-12.1) Seconds INR APTT (26.0-36.0) Seconds Sodium (136-145) mEq/L Potassium (3.5-4.5) mEq/L Chloride (98-109) mEq/L Carbon Dioxide (19-29) mEq/L BUN (8-26) mg/dL Creatinine (0.72-1.25) mg/dL Est GFR ( Amer) (> 60) Est GFR (Non-Af Amer) (> 60) BUN/Creatinine Ratio (6-26) Glucose (70-99) mg/dL POC Glucose (58-89) Calculated Osmolality (280-300) Lactic Acid 2.1 (0.5-2.2) mmol/L Calcium (8.6-10.8) mg/dL Total Bilirubin (0.2-1.2) mg/dL Direct Bilirubin (0.0-0.5) mg/dL Indirect Bilirubin (0.0-1.2) mg/dL AST (5-34) Units/L ALT (0-55) Units/L Alkaline Phosphatase (38-126) Units/L Ammonia (18-72) mcmol/L Creatine Kinase (30-200) Units/L Troponin I (0-0.03) ng/mL C-Reactive Protein (Less than 5) mg/L B-Natriuretic Peptide (0-100) pg/mL Serum Total Protein (6.0-8.3) g/dL Albumin (3.5-5.0) g/dL Globulin (2.4-3.5) g/dL Albumin/Globulin Ratio (1.1-2.2) TSH (0.350-4.840) mcIU/mL Urine Color (Yellow) Urine Clarity (Clear) Urine pH (5.0-8.0) pH Units Ur Specific [place] (1.010-1.025) Urine Protein (Neg-Trace) mg/dL Urine Glucose (UA) (Normal) mg/dL Urine Ketones (Negative) mg/dL Urine Blood (Negative) Urine Nitrite (Negative) Urine Bilirubin (Negative) Urine Urobilinogen (Normal) mg/dL Ur Leukocyte Esterase (Negative) Urine Microscopic RBC (0-3) per hpf Urine Microscopic WBC (0-3) per hpf Ur Squamous Epith Cells (None-Few) per lpf Urine Bacteria (None-Few) per hpf Hyaline Casts (None-Few) per lpf Ur Culture Indicated? (NO) Salicylates (15-30) mg/dL Urine Opiates Screen (Fwxlus=747) ng/mL Acetaminophen (10-30) mcg/mL Ur Barbiturates Screen (Mruz[place]=504) ng/mL Ur Phencyclidine Scrn (Cutoff=25) ng/mL Ur Amphetamines Screen (Hrpqwx=8134) ng/mL U Benzodiazepines Scrn (Rngaji=436) ng/mL Urine Cocaine Screen (Cutoff= 300) ng/mL U Marijuana (THC) Screen (Cutoff = 50) ng/mL Ethyl Alcohol (0-10) mg/dL Specimen Rejected Hemolyzed - Radiology Data Radiology results reviewed: Yes I reviewed the patient's radiology results.
[2016-12-03] MEDS ORDERED: Tdap (Boostrix) Vaccine 0.5 ML SYRINGE IM ONE (12:04)
[2016-12-03 12:07] LABS: Bilirubin,Urine Negative (Negative); Blood,Urine Moderate (Negative); Clarity,Urine Clear (Clear); Color,Urine Yellow (Yellow); Glucose,Urine (UA) Normal (Normal); Ketones,Urine Negative (Negative); Leukocyte Esterase,Urine Negative (Negative); Nitrite,Urine Negative (Negative); PH,Urine 6.5 pH Units (5.0-8.0); Protein,Urine Negative (Neg-Trace); Specific Gravity,Urine 1.011 (1.010-1.025); Urobilinogen,Urine Normal (Normal)
[2016-12-03 12:10] LABS: Bacteria,Urine None Seen per hpf (None-Few); Hyaline Casts,Urine None Seen per lpf (None-Few); Squamous Epithelial Cell,Urine Moderate per lpf (None-Few); WBC,Urine 0-3 per hpf (0-3)
[2016-12-03 12:14] LABS: Amphetamine Screen,Urine Negative ng/mL (Cutoff=1000); Barbiturate Screen,Urine Negative ng/mL (Cutoff=200); Benzodiazepines Screen,Urine Positive ng/mL (Cutoff=200); Cannabinoid Screen,Urine Negative ng/mL (Cutoff = 50); Cocaine Screen,Urine Negative ng/mL (Cutoff= 300); Opiate Screen,Urine Positive ng/mL (Cutoff=300); Phencyclidine Screen,Urine Negative ng/mL (Cutoff=25)
[2016-12-03 12:34] LABS: Basophils % 0.5 %; Eosinophils # 0.1 K/mcL (0.0-0.6); Eosinophils % 2.5 %; Hematocrit 49.3 % (37.5-50.1); Hemoglobin 16.8 g/dL (12.9-16.9); Immature Granulocytes % 0.5 % (0-4); Lymphocytes # 1.2 K/mcL (0.6-4.6); Lymphocytes % 22.3 %; Mean Corpuscular HGB Conc 34.1 g/dL (31.6-35.5); Mean Corpuscular Hemoglobin 34.6 pg (28.0-33.3); Mean Corpuscular Volume 101.6 fL (83.0-100.0); Mean Platelet Volume 10.8 fL (9.4-12.4); Monocytes # 0.6 K/mcL (0.0-1.3); Monocytes % 10.9 %; Neutrophils # 3.5 K/mcL (1.6-8.9); Platelet Count 149 K/mcL (140-400); Red Blood Count 4.85 M/mcL (4.19-5.50); Red Cell Distribution Width 12.2 % (11.5-14.5); Segmented Neutrophils % 63.3 %
[2016-12-03 12:39] LABS: INR 1.3; Prothrombin Time 13.8 Seconds (9.4-12.1)
[2016-12-03 12:41] LABS: Activated Partial Thrombo Time 31.7 Seconds (26.0-36.0)
[2016-12-03 12:51] LABS: Alanine Aminotransferase 57 Units/L (0-55); Albumin 3.8 g/dL (3.5-5.0); Albumin/Globulin Ratio 0.8 (1.1-2.2); Alkaline Phosphatase 186 Units/L (38-126); Aspartate Amino Transferase 104 Units/L (5-34); BUN/Creatinine Ratio 10 (6-26); Bilirubin,Direct 0.6 mg/dL (0.0-0.5); Bilirubin,Indirect 0.8 mg/dL (0.0-1.2); Bilirubin,Total 1.4 mg/dL (0.2-1.2); Blood Urea Nitrogen 8 mg/dL (8-26); Calcium 10.1 mg/dL (8.6-10.8); Carbon Dioxide 28 mEq/L (19-29); Chloride 98 mEq/L (98-109); Creatine Kinase 968 Units/L (30-200); Globulin 4.5 g/dL (2.4-3.5); Glucose 89 mg/dL (70-99); Osmolality,Calculated 286 (280-300); Potassium 3.6 mEq/L (3.5-4.5); Sodium 139 mEq/L (136-145); Total Protein 8.3 g/dL (6.0-8.3); eGFR For African Americans > 60 (> 60); eGFR For Non-African Americans > 60 (> 60)
[2016-12-03 12:52] LABS: Acetaminophen < 1.0 mcg/mL (10-30); Ethanol < 10 mg/dL (0-10); Salicylate < 5.0 mg/dL (15-30)
[2016-12-03 13:11] LABS: Thyroid Stimulating Hormone 1.979 mcIU/mL (0.350-4.840)
[2016-12-03 13:21] LABS: C-Reactive Protein 44 mg/L (Less than 5)
--- NOTE | 2016-12-03 17:31 | Event Note ---
Date of Encounter: 12/03/16 Time of Encounter: 17:25 Patient seen and examined with nurse tri. Patient was unresponsive on arrival to the emergency room with [facility] people. He received Narcan with improvement of his level of alertness. Required another dose later in the ER. CT scan from head to pelvis shows right femur dislocation and L1 compression fracture. No intracranial bleed. Patient cannot provide history. We have to consider possibility of overdose. He is also on lots of opiates at home on scheduled basis including morphine longer-acting and short-acting. Will keep sitter at bedside since he may have overdosed. Discontinue all opiates. Continuous telemetry monitoring. Orthopedic service to see for femur dislocation. He has an elevated CRP of 40 but no infectious source. Hold xarelto today.
[2016-12-03] MEDS ORDERED: Naloxone 0.4 MG/ML INJ IVP ONE ×2 (17:45→17:48)
[2016-12-03] MEDS ORDERED: Naloxone 0.4 MG/ML INJ IVP PRN ×2 (17:56→21:30)
--- NOTE | 2016-12-03 20:27 | Internal Med History&Physical ---
Date of Encounter: 12/03/16 Time of Encounter: 17:00 Assessment and Plan (1) Drug overdose Current visit: Yes Status: Acute Assess: Mr. Enriquez is a 61 year old male who presents to the ED with overdose of benzodiazepines and opiates. There is no history of acute trauma. Patient is currently non-responsive to assessment and examination. Patient's SpO2 is 96% on room air and appears to be in no physical or respiratory distress. Patient was given three separate doses of Narcan from which he awoke for a short time period. Two of these times he became combative. Following the third dose, the patient was more somnolent and was only able to answer two questions incorrectly. Patient is not oriented to person, place, or time. Plan: Three separate doses of Narcan administered in the ED Narcan drip ordered to be dosed by pharmacy NPO status All medications withheld Blood cultures ordered stat ABGs ordered stat Poison Control contacted with recommendation for acetylcysteine IV Sitter ordered at bedside Psychiatric consult ordered and confirmed Monitor patient's vital signs Monitor patient's status closely Qualifiers: Encounter type: initial encounter Injury intent: undetermined intent Qualified Code(s): T50.904A - Poisoning by unspecified drugs, medicaments and biological substances, undetermined, initial encounter (2) Altered mental status Current visit: Yes Status: Acute Assess: Mr. Enriquez is a 61 year old male who presents to the ED with overdose of benzodiazepines and opiates. There is no history of acute trauma. Patient is currently non-responsive to assessment and examination. Patient's SpO2 is 96% on room air and appears to be in no physical or respiratory distress. Patient was given three separate doses of Narcan from which he awoke for a short time period. Two of these times he became combative. Following the third dose, the patient was more somnolent and was only able to answer two questions incorrectly. Patient is not oriented to person, place, or time. Plan: Three separate doses of Narcan administered in the ED Narcan drip ordered to be dosed by pharmacy NPO status All medications withheld Blood cultures ordered stat ABGs ordered stat Poison Control contacted with recommendation for acetylcysteine IV Sitter ordered at bedside Psychiatric consult ordered and confirmed Monitor patient's vital signs Monitor patient's status closely Qualifiers: Altered mental status type: somnolence Qualified Code(s): R40.0 - Somnolence (3) Pulmonary emboli Current visit: No Status: Acute Assess: Patient presents with history of pulmonary emboli. Plan: CT angio of chest ordered, showing resolution of right lower lobe emboli noted on previous study. No acute pulmonary findings. Continuous cardiac monitoring ordered Continuous pulse oximetry ordered O2 2L ordered to be titrated if SpO2 <92% Monitor patient's vital signs Qualifiers: Pulmonary embolism type: other Chronicity: acute Acute cor pulmonale presence: without acute cor pulmonale Qualified Code(s): I26.99 - Other pulmonary embolism without acute cor pulmonale (4) DVT prophylaxis Current visit: Yes Status: Acute Assess: Patient to be placed on DVT prophylaxis due to present non-responsive status and bed rest. Plan: Heparin 5,000 SQ Q8HR ordered Internal Medicine - H&P: HPI Admitted From: Emergency Dept Plans for Post Hospital Care: Transfer Other (Patient is currently homeless) History of present illness: Mr. Enriquez is a 61 year old male who presents to the ED with overdose of benzodiazepines and opiates. Patient was seen in ED yesterday (12/02/16) for hip dislocation. Patient's previous history shows malignancy (prostate cancer and metastatic disease), PE, arthritis, CHF, pulmonary lesion, compression fracture, lumbar vertebral fracture, hematuria, rhabdomyolysis, and hypertension. There is no history of acute trauma. Patient is currently non- responsive to assessment and examination. Patient's SpO2 is 96% on room air and appears to be in no physical or respiratory distress. Patient was given three separate doses of Narcan from which he awoke for a short time period. Two of these times he became combative. Following the third dose, the patient was more somnolent and was only able to answer two questions incorrectly. Patient is not oriented to person, place, or time. Patient to be placed as inpatient status with continuous cardiac monitoring, Narcan drip to be dosed by pharmacy, a sitter at bedside, and a psychiatric consult has been ordered. Patient to be monitored closely. Past Med Surg Social Fam HX - Past Medical History Medical history: non-contributory (Information taken from patient's previous records due to non-responsiveness/altered mental status.), arthritis, cancer, CHF, hypertension, pulmonary embolus, other Psychiatric history: anxiety - Past Surgical History Surgical History: hip replacement, orthopedic, other - Social History Smoking Status: Current every day smoker Smokeless Tobacco Status: No Alcohol use: occasionally, heavy, recent Drug use: marijuana, prescription drug abuse Occupational status: unemployed Current living situation: Homeless - Family History Father Hx Family Cancer: Yes Internal Medicine - H&P: Meds [place]-3/Dha/Epa/Fish Oil [Fish Oil 1,000 mg Softgel] 1,000 mg PO DAILY 11/11/16 [History] Nicotine Patch [Nicoderm] 21 mg TD DAILY #30 patch.td24 11/21/16 [Rx] Morphine Immed Rel [Morphine Sulfate] 15 mg PO Q2H PRN #60 tab 11/26/16 [Rx] Morphine Sulfate SR (12 HR) [MS Contin] 15 mg PO Q12HR #60 tablet.er 11/26/16 [ Rx] Docusate Sodium [Colace] 100 mg PO BID #60 capsule 11/30/16 [Rx] Sennosides [Senna] 2 tab PO HS #60 tablet 11/30/16 [Rx] OxyCODONE ER (12 HR) [OxyCONTIN] 10 mg PO Q12HR 12/03/16 [History] OxyCODONE/APAP 10/325 [Percocet 10/325 MG] 1 each PO Q4HR PRN 12/03/16 [History] Rivaroxaban [Xarelto] 15 mg PO BID 12/03/16 [History] Allergies NSAIDS (Non-Steroidal Anti-Inflamma Adverse Reaction (Severe, Verified 11/30/16 18:19) Vomiting Cyclobenzaprine Adverse Reaction (Intermediate, Verified 11/30/16 18:19) Agitated ROS unobtainable: due to mental status All Systems PM: A 10-system review of systems was performed and is negative for pertinent findings except as documented above in the HPI. - Constitutional Vitals: Temp Pulse Resp BP Pulse Ox 98.5 F 98 16 149/73 98 12/03/16 11:04 12/03/16 20:01 12/03/16 20:01 12/03/16 20:01 12/03/16 20:01 Exam: Patient is currently non-responsive. Portions of physical exam were able to be completed while patient was somnolent. - Eye Pupils: Present: fixed (Pinpoint pupils bilaterally) - ENT ENT exam: Present: mucous membranes dry - Neck Neck exam general surgery: Present: normal inspection, trachea midline - Respiratory Respiratory exam: Present: decreased breath sounds - Cardiovascular Cardiovascular exam: Present: RRR, +S1, +S2. Absent: diastolic murmur, gallop, rubs, systolic murmur - GI/Abdominal GI/Abdominal exam: Present: diminished bowel sounds, soft - Rectal Rectal exam: Present: deferred - Additional comments: exam deferred. - Extremities Exam Extremities exam: Present: normal inspection, radial pulses palpable and symetrical - Neurological Exam Neurological exam: Present: altered (Patient currently non-responsive to questions or examination) - Skin Skin exam: Present: dry (Bruising present on upper and lower extremities bilaterally), intact Internal Med - H&P Results - Labs CBC & Chem 7: 12/03/16 12:19 12/03/16 12:19 - EKG Data EKG shows normal: sinus rhythm - EKG Data Prior EKG available for review: yes When compared to previous EKG: there is no significant change EKG comments: 12/03/16 20:36 EKG dated 11/18/16 shows sinus rhythm. EKG dated 12/03/16 shows sinus rhythm. - Diagnostic Studies CT scan - head Additional comments: CT of head without contrast dated 12/03/16 shows no acute intracranial abnormality. Chest x-ray Additional comments: 1-View CXR dated 12/03/16 shows heart and mediastinal contours are stable. Calcified nodule in the left upper lung zone is unchanged. No focal consolidation, pneumothorax, or pleural effusion is noted. Osseous structures demonstrate no acute abnormality. No acute process. Other Images Additional comments: CTA of the chest dated 12/03/16 shows: 1. No evidence of acute pulmonary embolic disease. Resolution of right lower lobe emboli noted on the previous study. 2. No acute pulmonary findings. Mild emphysematous changes. 3. Non-calcified pulmonary nodule, the largest in the right upper lobe measuring 9 mm. Grossly stable compared to the previous study. Follow-up per Fleischner criteria which is to follow. 4. Nodule size greater than 8 mm: In a high-risk patient, CT of 3-6 months, then CT at 18-24 months.
[2016-12-03 21:04] LABS: ABG Base Excess 9.3 mEq/L (-2.0 to 3.0); ABG HCO3 34.3 mEQ/L (21-27); ABG Oxygen Saturation 96 % (95-98); ABG PCO2 46 mmHg (35-45); ABG PH 7.48 pH Units (7.32-7.45); ABG PO2 73 mmHg (85-104); ABG TCO2 35.7 mEq/L (20-26); Blood Gas FiO2 21 %
[2016-12-03] MEDS ORDERED: D5 IVC ONE ×2 (22:00→23:00)
[2016-12-03] MEDS ORDERED: WATER IVC ONE ×2 (22:00→23:00)
[2016-12-03] MEDS ORDERED: ACETYLCYSTEINE IVC ONE ×2 (22:00→23:00)
[2016-12-03] MEDS ORDERED: *HR* OxyCODONE Immed Rel 5 MG TABLET PO ONE (23:07)
[2016-12-04] MEDS ORDERED: Acetylcysteine 3,300 MG in D5% in Water 500 ML IVC ONE
[2016-12-04] MEDS ORDERED: *HR* Heparin 5,000 UNIT/ML VIAL SQ SCH
[2016-12-04] MEDS ORDERED: *HR* OxyCODONE/APAP 10/325 TABLET PO PRN (01:43)
[2016-12-04] MEDS: *HR* OxyCODONE Immed Rel 5 MG TABLET PO PRN ×2 (03:31→08:11)
[2016-12-04] MEDS ORDERED: Acetylcysteine 6,600 MG in D5% in Water 1,000 ML IVC ONE (04:00)
--- NOTE | 2016-12-04 06:39 | Electrocardiograph Report ---
[facility] Test Date: 2016-12-03 Pat Name: Timo Enriquez Department: 103 Room: 2N05 Gender: M Trauma Coordinator: : 1955 Requested By: N[place] Order Number: [id number] Reading MD: Viral Joshi DO Measurements Intervals [place] Rate: 81 P: 84 KS: 142 QRS: 84 QRSD: 88 T: 66 QT: 392 QTc: 430 Interpretive Statements SINUS RHYTHM INTERPRETATION BASED ON A DEFAULT AGE OF 40 YEARS Electronically Signed On 12-04-2016 6:37:34 EDT by Viral Joshi DO
--- NOTE | 2016-12-04 08:31 | Orthopedic Consult Note ---
Date of Encounter: 12/04/16 Time of Encounter: 13:00 Assessment and Plan (1) Hip dislocation, right Status: Acute Patient has a Right julien-prosthetic hip dislocation. Plan for Right hip Closed Reduction today with . Consent was obtained, reviewed and discussed with the patient. I discussed that if closed reduction is attempted and unsuccessful, he may ultimately require a Right hip revision surgery. This will be done at a separate occasion and not today. NPO. NWB Pain control. Qualifiers: Encounter type: initial encounter Qualified Code(s): S73.004A - Unspecified dislocation of right hip, initial encounter (2) Prostate cancer metastatic to bone Current Visit: No Status: Chronic (3) Tobacco abuse Current Visit: No Status: Chronic (4) Drug overdose Current Visit: Yes Status: Acute Qualifiers: Encounter type: initial encounter Injury intent: undetermined intent Qualified Code(s): T50.904A - Poisoning by unspecified drugs, medicaments and biological substances, undetermined, initial encounter History of Present Illness Chief complaint: Confusion and hip pain HPI: Mr. Enriquez is a 61-year-old male reports emergency department via EMS, there are concerns for confusion and hip pain. The patient has a history of a hip replacement per nursing, he also has a history of CHF and hypertension. There is no history of acute trauma. Patient states he had Right THR 1994, and it started dislocated approximately 2 years ago, and it has dislocated 8 times. He has self-reduced it in the past, and also had closed reductions performed. Patient is a poor historian, so unclear how long this has been occuring. He denies trauma or fall. Patient states he was bending over to reach something and felt the right hip pop, he did not fall at the time. He denies N/T. Denies LOC. Per reports the patient was in this emergency department yesterday for a hip dislocation. Per the patient's chart he has a history of malignancy as well as PE and may be on anticoagulant medication, Xarelto. There is no history of bleeding. , Past Med Surg Social Fam HX - Past Medical History Medical history: non-contributory, arthritis, cancer, CHF, hypertension, pulmonary embolus, other Psychiatric history: anxiety - Past Surgical History Surgical History: hip replacement, orthopedic, other - Social History Smoking Status: Current every day smoker Packs per day: 1 Smokeless Tobacco Status: No Alcohol use: occasionally, heavy, recent Drug use: marijuana, prescription drug abuse - Family History Father Hx Family Cancer: Yes Medications and Allergies [place]-3/Dha/Epa/Fish Oil [Fish Oil 1,000 mg Softgel] 1,000 mg PO DAILY 11/11/16 [History] Nicotine Patch [Nicoderm] 21 mg TD DAILY #30 patch.td24 11/21/16 [Rx] Morphine Immed Rel [Morphine Sulfate] 15 mg PO Q2H PRN #60 tab 11/26/16 [Rx] Morphine Sulfate SR (12 HR) [MS Contin] 15 mg PO Q12HR #60 tablet.er 11/26/16 [ Rx] Docusate Sodium [Colace] 100 mg PO BID #60 capsule 11/30/16 [Rx] Sennosides [Senna] 2 tab PO HS #60 tablet 11/30/16 [Rx] OxyCODONE ER (12 HR) [OxyCONTIN] 10 mg PO Q12HR 12/03/16 [History] OxyCODONE/APAP 10/325 [Percocet 10/325 MG] 1 each PO Q4HR PRN 12/03/16 [History] Rivaroxaban [Xarelto] 15 mg PO BID 12/03/16 [History] Allergies NSAIDS (Non-Steroidal Anti-Inflamma Adverse Reaction (Severe, Verified 11/30/16 18:19) Vomiting Cyclobenzaprine Adverse Reaction (Intermediate, Verified 11/30/16 18:19) Agitated All Systems Reviewed: A 10-system review of systems was performed and is negative for pertinent findings except as documented above in the HPI. - Constitutional Constitutional: as per HPI - Cardiovascular Cardiovascular: as per HPI Physical Exam - Constitutional Vitals: Temp Pulse Resp BP Pulse Ox 98.0 F 89 18 133/87 95 12/04/16 08:08 12/04/16 08:08 12/04/16 08:08 12/04/16 08:08 12/04/16 08:08 - Hip right Gait: other (nonambulatory secondary to pain; RL appears shortened and knee in flexed position with eR of hip) Tenderness with palpation: posterior, greater trochanter ROM: extension: abnormal ROM: flexion: abnormal ROM: abduction: abnormal ROM: adduction: abnormal ROM: internal rotation: abnormal ROM: external rotation: abnormal Results - Labs Result Diagrams: 12/03/16 12:19 12/04/16 08:38 Labs: Abnormal lab results MCV 101.6 fL (83.0-100.0) H 12/03/16 12:19 MCH 34.6 pg (28.0-33.3) H 12/03/16 12:19 PT 13.8 Seconds (9.4-12.1) H 12/03/16 12:19 ABG pH 7.48 pH Units (7.32-7.45) H 12/03/16 20:41 ABG pCO2 46 mmHg (35-45) H 12/03/16 20:41 ABG pO2 73 mmHg (85-104) L 12/03/16 20:41 ABG HCO3 34.3 mEQ/L (21-27) H 12/03/16 20:41 ABG Total CO2 35.7 mEq/L (20-26) H 12/03/16 20:41 ABG Base Excess 9.3 mEq/L (-2.0 to 3.0) H 12/03/16 20:41 POC Glucose 112 (58-89) H 12/03/16 11:15 Total Bilirubin 1.4 mg/dL (0.2-1.2) H 12/03/16 12:19 Direct Bilirubin 0.6 mg/dL (0.0-0.5) H 12/03/16 12:19 AST 104 Units/L (5-34) H 12/03/16 12:19 ALT 57 Units/L (0-55) H 12/03/16 12:19 Alkaline Phosphatase 186 Units/L (38-126) H 12/03/16 12:19 Creatine Kinase 968 Units/L (30-200) H 12/03/16 12:19 C-Reactive Protein 44 mg/L (Less than 5) H 12/03/16 12:19 Globulin 4.5 g/dL (2.4-3.5) H 12/03/16 12:19 Albumin/Globulin Ratio 0.8 (1.1-2.2) L 12/03/16 12:19 Urine Blood Moderate (Negative) H 12/03/16 11:59 Urine Microscopic RBC 5-15 per hpf (0-3) H 12/03/16 11:59 Ur Squamous Epith Cells Moderate per lpf (None-Few) H 12/03/16 11:59 Salicylates < 5.0 mg/dL (15-30) L 12/03/16 12:19 Urine Opiates Screen Positive ng/mL (Clkyzy=107) H 12/03/16 11:59 Acetaminophen < 1.0 mcg/mL (10-30) L 12/03/16 19:17 U Benzodiazepines Scrn Positive ng/mL (Ieutmq=526) H 12/03/16 11:59 All other labs normal. Consult Discharge Plan - Plan Referrals: Faustino King DO [Primary Care Provider] -
[2016-12-04 09:00] LABS: Alanine Aminotransferase 44 Units/L (0-55); Albumin/Globulin Ratio 0.8 (1.1-2.2); Alkaline Phosphatase 146 Units/L (38-126); Aspartate Amino Transferase 59 Units/L (5-34); BUN/Creatinine Ratio 8 (6-26); Bilirubin,Total 1.1 mg/dL (0.2-1.2); Blood Urea Nitrogen 6 mg/dL (8-26); Calcium 9.5 mg/dL (8.6-10.8); Carbon Dioxide 31 mEq/L (19-29); Chloride 98 mEq/L (98-109); Globulin 3.9 g/dL (2.4-3.5); Glucose 158 mg/dL (70-99); Osmolality,Calculated 287 (280-300); Potassium 3.4 mEq/L (3.5-4.5); Sodium 138 mEq/L (136-145); Total Protein 6.9 g/dL (6.0-8.3); eGFR For African Americans > 60 (> 60); eGFR For Non-African Americans > 60 (> 60)
[2016-12-04] MEDS ORDERED: (Omega-3/Dha/Epa/Fish Oil [Fish Oil 1,000 Mg Softgel] PO SCH (09:00)
[2016-12-04] MEDS ORDERED: *HR* Rivaroxaban 15 MG TABLET PO SCH (09:00)
--- NOTE | 2016-12-04 09:26 | Internal Med Progress Note ---
Date of Encounter: 12/04/16 Time of Encounter: 09:22 - Assessment and plan (1) Abnormal liver function tests Current Visit: Yes Status: Acute Assessment and plan: IMproved Continue protocol, d/c after current infusion (2) Altered mental status Current Visit: Yes Status: Resolved Assessment and plan: Resolved Secondary to drug overdose Qualifiers: Altered mental status type: somnolence Qualified Code(s): R40.0 - Somnolence (3) Drug overdose Current Visit: Yes Status: Acute Assessment and plan: Opiate overdose patient reports unintentional overdose Symptoms have resolved Psych eval Qualifiers: Encounter type: initial encounter Injury intent: undetermined intent Qualified Code(s): T50.904A - Poisoning by unspecified drugs, medicaments and biological substances, undetermined, initial encounter (4) Hip dislocation, right Current Visit: Yes Status: Acute Assessment and plan: Ortho eval Qualifiers: Encounter type: initial encounter Qualified Code(s): S73.004A - Unspecified dislocation of right hip, initial encounter (5) Pulmonary emboli Current Visit: Yes Status: Chronic Assessment and plan: Continue xarelto Patient reports non-compliance Qualifiers: Pulmonary embolism type: other Chronicity: acute Acute cor pulmonale presence: without acute cor pulmonale Qualified Code(s): I26.99 - Other pulmonary embolism without acute cor pulmonale (6) Prostate cancer metastatic to bone Current Visit: Yes Status: Chronic Assessment and plan: Resume home pain meds Patient wants to consider home hospice Consult palliative (7) Tobacco abuse Current Visit: Yes Status: Chronic Assessment and plan: Counselled on cessation (8) Depression Current Visit: Yes Status: Acute Assessment and plan: Psych eval Qualifiers: Depression Type: major depressive disorder Major depression recurrence: recurrent Active/Remission status: currently active Major depression episode severity: severe Psychotic features: without psychotic features Qualified Code(s): F33.2 - Major depressive disorder, recurrent severe without psychotic features - Subjective Interval history: 61 M with PMH of metastatic prostate CA, Chronic pain syndrome from severe DJD, recurrent Right hip dislocation, DVT/PE, Tobacco abuse Patient is seen and evaluated at bedside He is severely depressed and does not voice suicidal attempts, however voiced " I want to , he denies having a plan and refuses depression medications He wants to be evaluated by palliative as he is chronically dependent on opiates and does not want to be following with PCP/Oncologist anymore He is alert and oriented and wishes to be DNR/DNI He is otherwise stable at this time and awaiting ortho review for R displaced hip LFTs have improved, continue to monitor Patient is low risk for low risk procedure, light sedation, he has no cardiac symptoms and needs no cardiac work up at this time - Constitutional Vitals: Temp Pulse Resp BP Pulse Ox 98.0 F 89 18 133/87 95 12/04/16 08:08 12/04/16 08:08 12/04/16 08:08 12/04/16 08:08 12/04/16 08:08 General appearance: Present: A&O X 3, pleasant, no acute distress - Head Head exam: Present: atraumatic, normocephalic - Eye Eye exam: Present: PERRL, conjuntiva pink, sclera anicteric Pupils: Present: PERRL - Neck Neck exam general surgery: Present: supple, trachea midline. Absent: lymphadenopathy - Respiratory Respiratory exam: Present: CTAB. Absent: accessory muscle use, rales, rhonchi, wheezes - Cardiovascular Cardiovascular exam: Present: RRR, +S1, +S2. Absent: diastolic murmur, gallop, rubs, systolic murmur - GI/Abdominal GI/Abdominal exam: Present: normal bowel sounds, soft, no peritoneal signs. Absent: distended, tenderness - Extremities Exam Extremities exam: Present: warm, radial pulses palpable and symetrical. Absent : calf tenderness, cyanotic, pedal edema Additional comments: R limb shorter and internally rotated - Neurological Exam Neurological exam: Present: alert, CN II-XII intact, oriented X3, no focal deficits. Absent: pronater drift, facial droop, speech deficit - Skin Skin exam: Present: dry, intact Internal Medicine: Result - Labs CBC & Chem 7: 12/03/16 12:19 12/04/16 08:38 Labs: BMP 12/04/16 08:38 Sodium 138 Potassium 3.4 L Chloride 98 Carbon Dioxide 31 H BUN 6 L Creatinine 0.75 Glucose 158 H Calcium 9.5 Liver Function 12/04/16 Range/Units 08:38 Total Bilirubin 1.1 (0.2-1.2) mg/dL AST 59 H (5-34) Units/L ALT 44 (0-55) Units/L Alkaline Phosphatase 146 H (38-126) Units/L Albumin 3.0 L D (3.5-5.0) g/dL - ABG Interpretation ABG results: ABG ABG pH 7.48 pH Units (7.32-7.45) H 12/03/16 20:41 ABG pCO2 46 mmHg (35-45) H 12/03/16 20:41 ABG pO2 73 mmHg (85-104) L 12/03/16 20:41 ABG O2 Saturation 96 % (95-98) 12/03/16 20:41 PT/INR, D-dimer PT 13.8 Seconds (9.4-12.1) H 12/03/16 12:19 Consult Discharge Plan - Plan Referrals: Faustino King DO [Primary Care Provider] -
--- NOTE | 2016-12-04 11:22 | Palliative - Consult Note ---
Date of Encounter: 12/04/16 Time of Encounter: 15:01 - Assessment and Plan (1) Right hip pain Current Visit: Yes Status: Acute Assessment and plan: Plan for closed reduction per orthopedics today. (2) Cancer associated pain Current Visit: Yes Status: Acute Assessment and plan: Discussed case with hospitalist. Patient is unable to afford OxyContin, and it is not a drug of choice for discharge. At this time, will change long-acting opioid management to MS Contin. Increase dose to MS Contin 30 mg twice a day to compensate for increased when necessary usage. For intermittent/ breakthrough pain, will resume immediate release morphine 15 mg every 4 hours as needed. Discussed with nursing. Hold pain medications in the event of sedation. Adjust pain regimen as necessary. Patient is going to have closed reduction of hip dislocation under conscious sedation today. Will continue to evaluate the impact of right hip pain following the closed reduction. Patient does have evidence of bony metastasis to the spine. May consider adding dexamethasone if pain regimen is ineffective. Discussed with hospitalist, and will hold on dexamethasone until closed reduction is completed and new morphine regimen has been started. Discussed risks/benefits/indications and plan of care with the patient. I have expressed great concern with his social/living situation and the amount of opioids in his home. May need to adjust the amount of pain medication he is able to possess one time to prevent increased risk of theft or forced entry and possible harm while in his home environment. Current oncology notes indicate a referral to radiation oncology with appointment scheduled for 12/09/16 for evaluation/consult for radiation therapy to spinal mets. (3) Therapeutic opioid induced constipation Current Visit: Yes Status: Acute Assessment and plan: Current regimen is senna plus at at bedtime with docusate twice a day. Patient states he is able to have a BM at any time. (4) Prostate cancer metastatic to bone Current Visit: Yes Status: Chronic Assessment and plan: Following with oncology. Palliative-CN HPI - Data of Consult Patient: new to practice Consult date: 12/04/16 Requesting Physician: Rashid Posadas MD Primary Care Provider: Faustino King, DO - Consult Narrative Palliative Care/Comfort Measures: Palliative care Reason for consult: symptom management, hospice evaluation History of present illness: Mr. Enriquez is a 61 year old male patient presenting to [facility] with right hip pain and possible dislocation. He was also found to be overly sedated and treated for potential overdose of benzodiazepines and opioids. Mr. Enriquez was seen the day prior to admission for a right hip dislocation. He has had recurrent hip dislocations and follows with orthopedics. Mr. Enriquez was diagnosed with metastatic prostate cancer in September 2016. He follows with [facility]. He started on Lupron injections. Further workup indicated bony metastases and bilateral pulmonary nodules. He developed substernal chest pain on 11/18/2016. Workup and evaluation found right-sided pulmonary embolus. He was started on Xarelto and discharged home. Mr. Enriquez has a history of chronic pain with degenerative joint disease, spondylosis, arthritis. He has had evaluations at [facility] and [facility], but did not have follow-up. Mr. Enriquez reports right sided hip pain rated 8/10 described as sharp shooting/ throbbing. He does have some relief with his current pain medication of oxycodone, however pain management wears off within 3 hours. He also has back pain described as "pretty serious", but not rated. His pain regimen has been adjusted over the past several months to assist with supportive care. He was recently (on 11/30/2016) change to MS Contin 15 mg twice a day, with IR morphine 15 mg every 2 hours as needed. Mr. Enriquez states he was taking the IR morphine every 2 hours [id number]. Mr. Enriquez states he had an increase in when necessary medications due to his right hip dislocation. He denies problems with opioid-induced constipation, nausea/vomiting. Overall, he leads a sedentary life. He does admit to daily alcohol use, and occasional recreational drug use (as listed in the social history). Mr. Enriquez does not have advanced directives in place. CC: Rashid Posadas MD Past Med Surg Social Fam HX - Past Medical History Medical history: arthritis, cancer, CHF, hepatitis, hypertension, malignancy, pulmonary embolus, other (spondylosis, DJD, ) Psychiatric history: anxiety - Past Surgical History Surgical History: hip replacement, orthopedic, other - Social History Smoking Status: Current every day smoker Packs per day: 1 Smokeless Tobacco Status: No Alcohol use: heavy (4 beers per day), recent Drug use: marijuana, IVDU (history), prescription drug abuse Current living situation: Home - Independent Activity Level: Mostly sedentary - Family History Father Hx Family Cancer: Yes Medications and Allergies [place]-3/Dha/Epa/Fish Oil [Fish Oil 1,000 mg Softgel] 1,000 mg PO DAILY 11/11/16 [History] Nicotine Patch [Nicoderm] 21 mg TD DAILY #30 patch.td24 11/21/16 [Rx] Morphine Immed Rel [Morphine Sulfate] 15 mg PO Q2H PRN #60 tab 11/26/16 [Rx] Morphine Sulfate SR (12 HR) [MS Contin] 15 mg PO Q12HR #60 tablet.er 11/26/16 [ Rx] Docusate Sodium [Colace] 100 mg PO BID #60 capsule 11/30/16 [Rx] Sennosides [Senna] 2 tab PO HS #60 tablet 11/30/16 [Rx] OxyCODONE ER (12 HR) [OxyCONTIN] 10 mg PO Q12HR 12/03/16 [History] OxyCODONE/APAP 10/325 [Percocet 10/325 MG] 1 each PO Q4HR PRN 12/03/16 [History] Rivaroxaban [Xarelto] 15 mg PO BID 12/03/16 [History] Allergies NSAIDS (Non-Steroidal Anti-Inflamma Adverse Reaction (Severe, Verified 11/30/16 18:19) Vomiting Cyclobenzaprine Adverse Reaction (Intermediate, Verified 11/30/16 18:19) Agitated - Constitutional Constitutional ROS PAL: fatigue, weight loss, no decreased appetite - EENT Eyes: change in vision (over time ) Ears: no decreased hearing Ears, nose, mouth, throat: no dysphagia, no mouth pain, no nasal discharge, no sore throat - Cardiovascular Cardiovascular ROS: dyspnea on exertion, no chest pain, no chest pain with activity, no irregular heart rhythm, no orthopnea, no palpitations, no rapid heart rate - Respiratory Respiratory: cough, no hemoptysis, no dyspnea on exertion, no chest congestion - Gastrointestinal Gastrointestinal: constipation, other (bloating), no abdominal pain, no diarrhea , no nausea, no vomiting - Genitourinary Genitourinary ROS male: no difficulty urinating, no dysuria - Musculoskeletal Musculoskeletal ROS IM: arthralgias, back pain (chronic) Additional comments: right hip pain - Integumentary ROS Integumentary: no skin ulcer, no unusual bruising, no wounds - Neurological Neurological ROS: weakness (global), no confusion, no focal weakness, no lack of coordination - Psychiatric Psychiatric general PM: depression, no suicidal ideation Palliative Care-Exam - Constitutional Vitals: Temp Pulse Resp BP Pulse Ox 98.0 F 89 18 133/87 95 12/04/16 08:08 12/04/16 08:08 12/04/16 08:08 12/04/16 08:08 12/04/16 08:08 Exam: 61 year old male, cachectic, cooperative in conversation and physical exam - Head Head Exam: Present: atraumatic - Eye Eye exam: Present: EOMI - ENT ENT exam: Present: mucous membranes moist - Respiratory Respiratory exam: Present: CTAB. Absent: accessory muscle use, respiratory distress, wheezes, tachypnea - Cardiovascular Cardiovascular exam: Present: RRR. Absent: systolic murmur, tachycardia - GI/Abdominal Exam GI/Abdominal exam: Present: normal bowel sounds, soft. Absent: tenderness - Expanded GI/Abdominal Exam GI/Abdominal exam: Absent: ascites - Rectal Rectal Exam: Present: deferred - Catheter Type: Urethral ([place]) - Expanded Lower Extremities Exam Hip exam: Present: dislocation, internal rotation, shortening - Neurological Exam Neurological exam: Present: alert, oriented X3, no focal deficits - Psychiatric Psychiatric exam: Present: flat affect. Absent: agitated, anxious - Skin Skin exam: Present: dry, warm Internal Medicine - CN: Reslt - Labs CBC & Chem 7: 12/03/16 12:19 12/04/16 08:38 Labs: BMP 12/04/16 08:38 Sodium 138 Potassium 3.4 L Chloride 98 Carbon Dioxide 31 H BUN 6 L Creatinine 0.75 Glucose 158 H Calcium 9.5 Liver Function 12/04/16 Range/Units 08:38 Total Bilirubin 1.1 (0.2-1.2) mg/dL AST 59 H (5-34) Units/L ALT 44 (0-55) Units/L Alkaline Phosphatase 146 H (38-126) Units/L Albumin 3.0 L D (3.5-5.0) g/dL - ABG Interpretation ABG results: ABG ABG pH 7.48 pH Units (7.32-7.45) H 12/03/16 20:41 ABG pCO2 46 mmHg (35-45) H 12/03/16 20:41 ABG pO2 73 mmHg (85-104) L 12/03/16 20:41 ABG O2 Saturation 96 % (95-98) 12/03/16 20:41 PT/INR, D-dimer PT 13.8 Seconds (9.4-12.1) H 12/03/16 12:19 Consult Discharge Plan - Plan Referrals: Faustino King DO [Primary Care Provider] - Palliative Quality Palliative Quality: Screen for Code Status: NA, Screen for Goals of Care: Yes, Screen for Pain: Yes, If Pain Regimen Started, Initiate Bowel Regimen: Yes, Screen for Nausea/Vomitting: Yes
--- NOTE | 2016-12-04 12:48 | Anesthesia Evaluation PreOp ---
Date of Encounter: 12/04/16 Time of Encounter: 12:46 - Past History Planned Operation: Closed Reduction Right Hip Cardiac History: CHF, HTN Pulmonary History: Smoker (40 years), COPD, Snore CONSTRUCTION PROJECT COORDINATOR History: Denies Any Significant HX Other Medical History: Hepatic (hepatitis B), Other (metastatic prostate CA, H/ O DVT with PE) Anesthesia History: No Prior Anesthetic Complications, Past Anesthesia Alcohol Use: occasionally, heavy, recent Drug use: marijuana, prescription drug abuse Medications and Allergies [place]-3/Dha/Epa/Fish Oil [Fish Oil 1,000 mg Softgel] 1,000 mg PO DAILY 11/11/16 [History] Nicotine Patch [Nicoderm] 21 mg TD DAILY #30 patch.td24 11/21/16 [Rx] Morphine Immed Rel [Morphine Sulfate] 15 mg PO Q2H PRN #60 tab 11/26/16 [Rx] Morphine Sulfate SR (12 HR) [MS Contin] 15 mg PO Q12HR #60 tablet.er 11/26/16 [ Rx] Docusate Sodium [Colace] 100 mg PO BID #60 capsule 11/30/16 [Rx] Sennosides [Senna] 2 tab PO HS #60 tablet 11/30/16 [Rx] OxyCODONE ER (12 HR) [OxyCONTIN] 10 mg PO Q12HR 12/03/16 [History] OxyCODONE/APAP 10/325 [Percocet 10/325 MG] 1 each PO Q4HR PRN 12/03/16 [History] Rivaroxaban [Xarelto] 15 mg PO BID 12/03/16 [History] Allergies NSAIDS (Non-Steroidal Anti-Inflamma Adverse Reaction (Severe, Verified 11/30/16 18:19) Vomiting Cyclobenzaprine Adverse Reaction (Intermediate, Verified 11/30/16 18:19) Agitated - Meds/Allergy Pre-op Review Medications Reviewed: Yes Allergies Reviewed: Yes Beta Blockers on Current Med List: No Anesthesia Results - Labs 12/03/16 12:19 12/04/16 08:38 - Imaging EKG: report reviewed (12/03/2016 SR) Additional studies: 11/18/2016 Echo LVEF 60-65% mild LV diastolic dysfunction no significant valvular dysfunction 05/11/2013 Echo Impressions: * LVEF 65% * Normal diastolic function of the left ventricle. * Normal left ventricular size and systolic function. * Normal right ventricular size and function. * Mild mitral and pulmonic insufficiency. * No evidence for pulmonary hypertension. 09/16/2011 Stress Impressions: Stress Note * Normal sinus rhythm * ECG is negative for stress induced ischemia. * No baseline arrhythmias were noted. * No stress induced arrhythmias. * The patient demonstrated normal blood pressure response. * The exercise capacity was average. * C/O shortness of breath but no chest pain * STRESS ECHO. REVEALS APPROPRIATE AUGMENTATION OF ALL LV SEGMENTS. NO STRESS-ECHO EVIDENCE OF ISCHEMIA. Anesthesia Exam Vital Signs/O2 Sat, Most Current Temp Pulse Resp BP Pulse Ox 98.2 F 73 18 135/86 96 12/04/16 12:03 12/04/16 12:03 12/04/16 12:03 12/04/16 12:03 12/04/16 12:03 Height: 5'11'' Weight: 148 lbs NPO (# of Hours): 8 Pain Scale: 10 Pain Scale Used: Numeric (1 - 10) - HEENT Pupil (Motor): EOMI Mallampati: II Teeth: Poor dentition Oral Opening: Greater than 3 - CONSTRUCTION PROJECT COORDINATOR LOC: Oriented CONSTRUCTION PROJECT COORDINATOR Motor: Normal Face, Deficit RUE, Deficit LUE, Deficit RLE, Deficit LLE CONSTRUCTION PROJECT COORDINATOR Sensory: Normal: Face, Deficit: RUE, LUE, RLE, LLE - Cardiac Rhythm: Regular Murmur: None - Pulmonary Breath Sounds: bilateral Clear Respiratory Effort: Symmetrical Anesthesia Assess/Plan ASA Score: 3 Modified [place] Scale for Level of Consciousness: Cooperative, oriented, and tranquil Anesthetic Plan: General Monitoring Plan: Standard Monitors Recovery Plan: PACU
[2016-12-04] MEDS ORDERED: Dexamethasone 4 MG/ML VIAL ONE (15:23)
[2016-12-04] MEDS ORDERED: *HR* Propofol 200 MG/20 ML VIAL IVP ONE (15:23)
[2016-12-04] MEDS ORDERED: *HR* FentaNYL (PF) 100 MCG/2 ML VIAL ONE (15:23)
[2016-12-04] MEDS ORDERED: Lidocaine -MPF 2% 2 ML VIAL ONE (15:23)
[2016-12-04] MEDS ORDERED: *HR* Midazolam HCl 2 MG/2 ML VIAL ONE (15:23)
[2016-12-04] MEDS ORDERED: Lidocaine -MPF 4% 5 ML AMPUL ONE (15:23)
[2016-12-04] MEDS ORDERED: Ketorolac 30 MG/ML VIAL ONE (15:23)
[2016-12-04] MEDS ORDERED: Ondansetron 4 MG/2 ML VIAL ONE (15:23)
[2016-12-04] MEDS ORDERED: *HR* Succinylcholine 200 MG/10 ML VIAL IVP ONE (15:23)
[2016-12-04] MEDS ORDERED: Ondansetron 4 MG/2 ML VIAL IVP ONE (15:39)
[2016-12-04] MEDS ORDERED: *HR* HYDROmorphone (PF) 1 MG/ML SYRINGE IVP PRN (15:39)
[2016-12-04] MEDS ORDERED: *HR* Promethazine 25 MG/ML VIAL IVP PRN (15:39)
[2016-12-04] MEDS ORDERED: *HR* Morphine Immed Rel 30 MG TABLET PO PRN (15:52)
--- NOTE | 2016-12-04 16:02 | Anesthesia Evaluation Post Op ---
Date of Encounter: 12/04/16 Time of Encounter: 16:00 - Vital Signs Vital Signs: vss - Lungs Lungs: Clear Ascult./Percussion - Airway Airway: Non-obstructed - Cardiovascular Regular Rate - Mental Status Mental Status: Confused (intermittently confused) - Pain Pain Scale: 0 Pain Scale used: Numeric (1 - 10) - Nausea Vomiting Nausea Vomiting: Not Present - Hydration Hydration: Ice chips - Discharge PostOp Status: Transfer Patient to floor
[2016-12-04] MEDS ORDERED: Sennosides 8.6 MG TABLET PO PRN (16:29)
[2016-12-04] MEDS ORDERED: MOM Conc 10 ML UD.LIQ PO PRN (16:29)
[2016-12-04] MEDS ORDERED: Ondansetron 4 MG/2 ML VIAL IVP PRN (16:29)
[2016-12-04] MEDS ORDERED: Temazepam 15 MG CAPSULE PO PRN (16:29)
[2016-12-04] MEDS ORDERED: Naloxone 0.4 MG/ML INJ IVP PRN ×2 (16:29)
[2016-12-04] MEDS: Ringers Solution, Lactated 1,000 ML IVC SCH (17:59)
[2016-12-04] MEDS: *HR* Morphine Sulfate SR (12 HR) 30 MG TABLET.ER PO SCH (18:00)
[2016-12-04] MEDS ORDERED: *HR* Morphine Sulfate SR (12 HR) 30 MG TABLET.ER PO SCH (18:00)
[2016-12-04] MEDS: Nicotine 14 MG PATCH.TD24 TD SCH (18:00)
[2016-12-04] MEDS ORDERED: *HR* OxyCODONE ER (12 HR) 10 MG TABLET PO SCH (18:00)
[2016-12-04] MEDS: Ascorbic Acid 500 MG TABLET PO SCH (18:00)
[2016-12-04] MEDS: Sennosides 8.6 MG TABLET PO SCH (20:38)
[2016-12-04] MEDS: *HR* Rivaroxaban 15 MG TABLET PO SCH (20:39)
[2016-12-04] MEDS ORDERED: Sennosides 8.6 MG TABLET PO SCH (21:00)
[2016-12-04] MEDS: *HR* Morphine Immed Rel 30 MG TABLET PO PRN (21:26)
[2016-12-05] MEDS: *HR* Morphine Immed Rel 30 MG TABLET PO PRN ×4 (02:18→21:45)
[2016-12-05 04:12] LABS: Hemoglobin 13.9 g/dL (12.9-16.9)
[2016-12-05 04:21] LABS: BUN/Creatinine Ratio 10 (6-26); Blood Urea Nitrogen 7 mg/dL (8-26); Carbon Dioxide 26 mEq/L (19-29); Chloride 103 mEq/L (98-109); Glucose 123 mg/dL (70-99); Osmolality,Calculated 283 (280-300); Sodium 137 mEq/L (136-145); eGFR For African Americans > 60 (> 60); eGFR For Non-African Americans > 60 (> 60)
[2016-12-05] MEDS: *HR* Morphine Sulfate SR (12 HR) 30 MG TABLET.ER PO SCH ×2 (05:47→18:35)
--- NOTE | 2016-12-05 09:49 | Internal Med Progress Note ---
Date of Encounter: 12/05/16 Time of Encounter: 09:45 - Assessment and plan (1) Abnormal liver function tests Current Visit: Yes Status: Acute Assessment and plan: IMproved (2) Altered mental status Current Visit: Yes Status: Resolved Assessment and plan: Resolved Secondary to drug overdose Qualifiers: Altered mental status type: somnolence Qualified Code(s): R40.0 - Somnolence (3) Drug overdose Current Visit: Yes Status: Acute Assessment and plan: Opiate overdose patient reports unintentional overdose Symptoms have resolved Psych eval Qualifiers: Encounter type: initial encounter Injury intent: undetermined intent Qualified Code(s): T50.904A - Poisoning by unspecified drugs, medicaments and biological substances, undetermined, initial encounter (4) Hip dislocation, right Current Visit: Yes Status: Acute Assessment and plan: s/p reduction Clinically and radiographically improved Qualifiers: Encounter type: initial encounter Qualified Code(s): S73.004A - Unspecified dislocation of right hip, initial encounter (5) Pulmonary emboli Current Visit: Yes Status: Chronic Assessment and plan: Continue xarelto Patient reports non-compliance Qualifiers: Pulmonary embolism type: other Chronicity: acute Acute cor pulmonale presence: without acute cor pulmonale Qualified Code(s): I26.99 - Other pulmonary embolism without acute cor pulmonale (6) Prostate cancer metastatic to bone Current Visit: Yes Status: Chronic Assessment and plan: Resume home pain meds Patient wants to consider home hospice Palliative eval appreciated DNR/DNI (7) Tobacco abuse Current Visit: Yes Status: Chronic Assessment and plan: Counselled on cessation NRT (8) Depression Current Visit: Yes Status: Acute Assessment and plan: Psych eval Qualifiers: Depression Type: major depressive disorder Major depression recurrence: recurrent Active/Remission status: currently active Major depression episode severity: severe Psychotic features: without psychotic features Qualified Code(s): F33.2 - Major depressive disorder, recurrent severe without psychotic features - Subjective Interval history: 61 M with PMH of metastatic prostate CA, Chronic pain syndrome from severe DJD, recurrent Right hip dislocation, DVT/PE, Tobacco abuse Patient is seen and evaluated at bedside He remains severely depressed Psych is yet to evaluate this patient Palliative eval appreciated He is alert and oriented and wishes to be DNR/DNI He is otherwise stable at this time and awaiting ortho review for R displaced hip LFTs have improved, continue to monitor s/p hip closed reduction, repeat Xray normal - Constitutional Vitals: Temp Pulse Resp BP Pulse Ox 97.3 F L 67 14 118/85 97 12/05/16 06:54 12/05/16 06:54 12/05/16 06:54 12/05/16 06:54 12/05/16 06:54 General appearance: Present: A&O X 3, pleasant, no acute distress - Head Head exam: Present: atraumatic, normocephalic - Eye Eye exam: Present: PERRL, conjuntiva pink, sclera anicteric Pupils: Present: PERRL - Neck Neck exam general surgery: Present: supple, trachea midline. Absent: lymphadenopathy - Respiratory Respiratory exam: Present: CTAB. Absent: accessory muscle use, rales, rhonchi, wheezes - Cardiovascular Cardiovascular exam: Present: RRR, +S1, +S2. Absent: diastolic murmur, gallop, rubs, systolic murmur - GI/Abdominal GI/Abdominal exam: Present: normal bowel sounds, soft, no peritoneal signs. Absent: distended, tenderness - Extremities Exam Extremities exam: Present: warm, radial pulses palpable and symetrical. Absent : calf tenderness, cyanotic, pedal edema - Neurological Exam Neurological exam: Present: alert, CN II-XII intact, oriented X3, no focal deficits. Absent: pronater drift, facial droop, speech deficit - Skin Skin exam: Present: dry, intact Internal Medicine: Result - Labs CBC & Chem 7: 12/05/16 03:51 12/05/16 03:51 Labs: Short CBC 12/05/16 Range/Units 03:51 Hgb 13.9 D (12.9-16.9) g/dL Hct 40.0 (37.5-50.1) % BMP 12/05/16 03:51 Sodium 137 Potassium 4.0 Chloride 103 Carbon Dioxide 26 BUN 7 L Creatinine 0.73 Glucose 123 H Calcium 9.0 Liver Function 12/04/16 Range/Units 16:28 AST 53 H (5-34) Units/L - ABG Interpretation ABG results: ABG ABG pH 7.48 pH Units (7.32-7.45) H 12/03/16 20:41 ABG pCO2 46 mmHg (35-45) H 12/03/16 20:41 ABG pO2 73 mmHg (85-104) L 12/03/16 20:41 ABG O2 Saturation 96 % (95-98) 12/03/16 20:41 PT/INR, D-dimer PT 13.8 Seconds (9.4-12.1) H 12/03/16 12:19 - Impressions Impressions Fluoroscopy 12/04/16 15:15 IMPRESSION: Intraprocedural fluoroscopic spot images as above. See separate procedure report for more information. D/ / 12/04/2016 16:12:04 Luke Mendoza MD / coleman Interpreting Provider: Luke Mendoza MD Hip X-Ray 12/04/16 15:15 IMPRESSION: Intraprocedural fluoroscopic spot images as above. See separate procedure report for more information. D/ / 12/04/2016 16:12:04 Luke Mendoza MD / coleman Interpreting Provider: Luke Mendoza MD Hip X-Ray 12/04/16 15:23 IMPRESSION: 1. Interval reduction of previously seen femoroacetabular dislocation. Alignment is now anatomic. D/ / Herve Rayo MD / Herve Rayo MD Interpreting Provider: Herve Rayo MD Consult Discharge Plan - Plan Referrals: Faustino King DO [Primary Care Provider] -
[2016-12-05] MEDS: Nicotine 14 MG PATCH.TD24 TD SCH (10:26)
[2016-12-05] MEDS: *HR* Rivaroxaban 15 MG TABLET PO SCH ×2 (10:27→20:31)
[2016-12-05] MEDS: Multivit/Ca/Min/Fe/FA 1 TAB TABLET PO SCH (10:27)
[2016-12-05] MEDS: Ascorbic Acid 500 MG TABLET PO SCH ×2 (10:27→16:07)
[2016-12-05] MEDS: Ringers Solution, Lactated 1,000 ML IVC SCH ×2 (10:33→21:42)
--- NOTE | 2016-12-05 10:37 | Orthopedics Progress Note ---
Date of Encounter: 12/05/16 Time of Encounter: 10:36 Subjective Interval history: S: No complaints. Pain well controlled. O: Afeb, VSS Leg lengths equal, no deformity. NV intact distally. Calves soft. A: Post op day 1 after reduction of right hip prosthetic dislocation P: Resume post op care Posterior hip precautions Knee immobilizer to the right knee. Objective Vital signs: Vital Signs Temp Pulse Resp BP Pulse Ox 12/05/16 06:54 97.3 F L 67 14 118/85 97 12/05/16 05:56 62 14 96 12/05/16 04:00 97.6 F 62 14 110/82 96 12/05/16 03:30 66 96 12/04/16 22:59 97.4 F L 65 14 118/78 96 12/04/16 20:59 98 F 66 14 116/86 96 12/04/16 19:02 98 F 73 14 116/86 96 12/04/16 18:14 67 131/80 12/04/16 17:30 82 18 126/92 97 12/04/16 17:15 80 18 122/91 96 12/04/16 17:00 64 18 115/93 97 12/04/16 16:45 65 18 111/81 96 12/04/16 16:30 69 18 124/85 95 12/04/16 16:19 97.8 F 73 18 130/87 97 12/04/16 15:59 98.6 F 76 16 138/88 97 12/04/16 15:44 87 16 125/95 98 12/04/16 15:34 98.2 F 83 16 130/93 100 12/04/16 12:03 98.2 F 73 18 135/86 96 Intake and Output 12/04/16 12/05/16 12/05/16 23:59 07:59 15:59 Intake Total 1360 / 1360 1700 / 1700 240 / 240 Output Total 2525 / 2525 825 / 825 Balance -1165 / -1165 875 / 875 240 / 240 Intake: IV Fluids 1000 / 1000 Lactated Ringers 1,000 ML 1000 / 1000 @ 75 mls/hr IVC .[id number] NICOLE Rx#:[id number] Oral 1360 / 1360 700 / 700 240 / 240 Output: Catheter 2525 / 2525 825 / 825 Other: Meal Dinner Breakfast Percent of Meal Consumed 75% 95% - Labs CBC & BMP: 12/05/16 03:51 12/05/16 03:51 Labs: Abnormal lab results MCV 101.6 fL (83.0-100.0) H 12/03/16 12:19 MCH 34.6 pg (28.0-33.3) H 12/03/16 12:19 PT 13.8 Seconds (9.4-12.1) H 12/03/16 12:19 ABG pH 7.48 pH Units (7.32-7.45) H 12/03/16 20:41 ABG pCO2 46 mmHg (35-45) H 12/03/16 20:41 ABG pO2 73 mmHg (85-104) L 12/03/16 20:41 ABG HCO3 34.3 mEQ/L (21-27) H 12/03/16 20:41 ABG Total CO2 35.7 mEq/L (20-26) H 12/03/16 20:41 ABG Base Excess 9.3 mEq/L (-2.0 to 3.0) H 12/03/16 20:41 BUN 7 mg/dL (8-26) L 12/05/16 03:51 Glucose 123 mg/dL (70-99) H 12/05/16 03:51 POC Glucose 112 (58-89) H 12/03/16 11:15 Direct Bilirubin 0.6 mg/dL (0.0-0.5) H 12/03/16 12:19 AST 53 Units/L (5-34) H 12/04/16 16:28 Alkaline Phosphatase 146 Units/L (38-126) H 12/04/16 08:38 Creatine Kinase 968 Units/L (30-200) H 12/03/16 12:19 C-Reactive Protein 44 mg/L (Less than 5) H 12/03/16 12:19 Albumin 3.0 g/dL (3.5-5.0) L D 12/04/16 08:38 Globulin 3.9 g/dL (2.4-3.5) H 12/04/16 08:38 Albumin/Globulin Ratio 0.8 (1.1-2.2) L 12/04/16 08:38 Urine Blood Moderate (Negative) H 12/03/16 11:59 Urine Microscopic RBC 5-15 per hpf (0-3) H 12/03/16 11:59 Ur Squamous Epith Cells Moderate per lpf (None-Few) H 12/03/16 11:59 Salicylates < 5.0 mg/dL (15-30) L 12/03/16 12:19 Urine Opiates Screen Positive ng/mL (Gotfjt=995) H 12/03/16 11:59 Acetaminophen < 1.0 mcg/mL (10-30) L 12/03/16 19:17 U Benzodiazepines Scrn Positive ng/mL (Polkzf=147) H 12/03/16 11:59 Consult Discharge Plan - Plan Referrals: Faustino King DO [Primary Care Provider] -
--- NOTE | 2016-12-05 12:17 | Palliative Progress Note ---
Date of Encounter: 12/05/16 Time of Encounter: 12:14 - Assessment and plan (1) Right hip pain Current Visit: Yes Status: Acute Assessment and plan: Mr. meyer is currently on MS Contin 30 mg twice a day with immediate release morphine 30 mg every 4 hours as needed. He has utilized 3 doses of breakthrough pain in the past 24 hours. He currently reports pain as "tolerable ". However, he does not rate pain on a scale of 0-10. He is sitting up in the chair with his right leg brace in place. And he reports the ability to transfer and walk much easier than the day before. Maintain current regimen. Discussed risks/benefits/indications in plan of care. Discuss plan of care for discharge. Patient is scheduled for consultation with radiation oncology on 12/09/2016. Would recommend pain regimen continue upon discharge. Patient is interested in radiation oncology evaluation. Upon completion of radiation, or if patient declines radiation therapy, hospice consultation would be appropriate. Patient agreeable to seek input from radiation oncology prior to enrollment in hospice care. (2) Cancer associated pain Current Visit: Yes Status: Acute Assessment and plan: Please see above plan of care (3) Therapeutic opioid induced constipation Current Visit: Yes Status: Acute Assessment and plan: Last BM yesterday. Scheduled on senna plus daily. Continue to monitor. (4) Prostate cancer metastatic to bone Current Visit: Yes Status: Chronic Assessment and plan: Please see plan of care as above. Currently scheduled for radiation oncology evaluation on 12/09/2016. Follow-up with oncology as outpatient. (5) Goals of care, counseling/discussion Current Visit: Yes Status: Acute Assessment and plan: Discussed goals of care upon discharge including hospice care. Mr. enriquez continues to support DNR comfort care arrest/DNI assess CODE STATUS. Will need to complete state DNR form prior to discharge. - Time Spent With Patient Total time spent is greater than 50% in coordination of care (as documented) at patient's floor/unit and/or counseling patient: - Subjective Interval history: Mr. Enriquez is setting up in chair with his right leg brace in place. He is talkative and interactive. Reports pain as "tolerable", however he does not rate the pain on a scale of 0-10. He reports a healthy appetite, with a last bowel movement of 12/04/2016. Denies shortness of breath. - Constitutional Vitals: Abnormal lab results MCV 101.6 fL (83.0-100.0) H 12/03/16 12:19 MCH 34.6 pg (28.0-33.3) H 12/03/16 12:19 PT 13.8 Seconds (9.4-12.1) H 12/03/16 12:19 ABG pH 7.48 pH Units (7.32-7.45) H 12/03/16 20:41 ABG pCO2 46 mmHg (35-45) H 12/03/16 20:41 ABG pO2 73 mmHg (85-104) L 12/03/16 20:41 ABG HCO3 34.3 mEQ/L (21-27) H 12/03/16 20:41 ABG Total CO2 35.7 mEq/L (20-26) H 12/03/16 20:41 ABG Base Excess 9.3 mEq/L (-2.0 to 3.0) H 12/03/16 20:41 BUN 7 mg/dL (8-26) L 12/05/16 03:51 Glucose 123 mg/dL (70-99) H 12/05/16 03:51 POC Glucose 112 (58-89) H 12/03/16 11:15 Direct Bilirubin 0.6 mg/dL (0.0-0.5) H 12/03/16 12:19 AST 53 Units/L (5-34) H 12/04/16 16:28 Alkaline Phosphatase 146 Units/L (38-126) H 12/04/16 08:38 Creatine Kinase 968 Units/L (30-200) H 12/03/16 12:19 C-Reactive Protein 44 mg/L (Less than 5) H 12/03/16 12:19 Albumin 3.0 g/dL (3.5-5.0) L D 12/04/16 08:38 Globulin 3.9 g/dL (2.4-3.5) H 12/04/16 08:38 Albumin/Globulin Ratio 0.8 (1.1-2.2) L 12/04/16 08:38 Urine Blood Moderate (Negative) H 12/03/16 11:59 Urine Microscopic RBC 5-15 per hpf (0-3) H 12/03/16 11:59 Ur Squamous Epith Cells Moderate per lpf (None-Few) H 12/03/16 11:59 Salicylates < 5.0 mg/dL (15-30) L 12/03/16 12:19 Urine Opiates Screen Positive ng/mL (Soguhp=582) H 12/03/16 11:59 Acetaminophen < 1.0 mcg/mL (10-30) L 12/03/16 19:17 U Benzodiazepines Scrn Positive ng/mL (Vdgezj=118) H 12/03/16 11:59 General appearance: Present: cooperative, no acute distress Exam: 61 year old male, cachectic, sitting up in chair, pleasant and conversant - Eye Eye exam: Present: EOMI, PERRL - ENT ENT exam: Present: mucous membranes moist - Respiratory Respiratory exam: Present: CTAB. Absent: accessory muscle use, respiratory distress, rhonchi, wheezes - Cardiovascular Cardiovascular exam: Present: RRR. Absent: tachycardia - GI/Abdominal GI/Abdominal exam: Present: soft. Absent: tenderness Additional comments: last BM was yesterday - Extremities Exam Additional comments: right sided knee brace in place - Neurological Exam Neurological exam: Present: alert, oriented X3, no focal deficits, strengths equal and symetr throughout - Psychiatric Psychiatric exam: Absent: agitated, anxious - Skin Skin exam: Present: dry, warm Palliative Quality Palliative Quality: Screen for Code Status: NA, Screen for Goals of Care: Yes, Screen for Pain: Yes, If Pain Regimen Started, Initiate Bowel Regimen: Yes, Screen for Nausea/Vomitting: Yes Code Status: 12/05/16 09:50 DNR [Resuscitation Status: Active] [RES] Routine Comment: Resuscitation Status: [id number] - Labs CBC & Chem 7: 12/05/16 03:51 12/05/16 03:51 Labs: Laboratory Results - last 24 hr 12/04/16 12/05/16 12/05/16 16:28 03:51 03:51 Hgb 13.9 D Hct 40.0 Sodium 137 Potassium 4.0 Chloride 103 Carbon Dioxide 26 BUN 7 L Creatinine 0.73 Est GFR ( Amer) > 60 Est GFR (Non-Af Amer) > 60 BUN/Creatinine Ratio 10 Glucose 123 H Calculated Osmolality 283 Calcium 9.0 AST 53 H - Impressions Impressions Fluoroscopy 12/04/16 15:15 IMPRESSION: Intraprocedural fluoroscopic spot images as above. See separate procedure report for more information. D/ / 12/04/2016 16:12:04 Luke Mendoza MD / coleman Interpreting Provider: Luke Mendoza MD Hip X-Ray 12/04/16 15:15 IMPRESSION: Intraprocedural fluoroscopic spot images as above. See separate procedure report for more information. D/ / 12/04/2016 16:12:04 Luke Mendoza MD / coleman Interpreting Provider: Luke Mendoza MD Hip X-Ray 12/04/16 15:23 IMPRESSION: 1. Interval reduction of previously seen femoroacetabular dislocation. Alignment is now anatomic. D/ / Herve Rayo MD / Herve Rayo MD Interpreting Provider: Herve Rayo MD - ABG Interpretation ABG results: ABG ABG pH 7.48 pH Units (7.32-7.45) H 12/03/16 20:41 ABG pCO2 46 mmHg (35-45) H 12/03/16 20:41 ABG pO2 73 mmHg (85-104) L 12/03/16 20:41 ABG O2 Saturation 96 % (95-98) 12/03/16 20:41 PT/INR, D-dimer PT 13.8 Seconds (9.4-12.1) H 12/03/16 12:19 Consult Discharge Plan - Plan Referrals: Faustino King DO [Primary Care Provider] -
--- NOTE | 2016-12-05 13:00 | Consult Note ---
Date of Encounter: 12/05/16 Time of Encounter: 12:00 Assessment & Recommendation (1) Altered mental status, unspecified Current visit: Yes Status: Acute Assessment & Recommendation: 1. Review of the record and interviewing the patient excludes any mental health diagnosis 2. There is no evidence of depression or suicidal ideation, patient used extra amounts of pain medication to deal with painful condition, dislocation of the hip and this is a chronic condition. 3. There is no need for suicide precautions or using a sitter From psychiatric standpoint patient can be discharged when medically stable. Thank you for the consult Qualifiers: Altered mental status type: delirium Qualified Code(s): R41.0 - Disorientation, unspecified History of Present Illness Patient: new to practice Requesting Physician: Rashid Posadas MD Reason for consult: Possible overdose History of present illness: Mr. Enriquez is a 61 year old male admitted to medical for evaluation of right hip pain and unresponsiveness. Psychiatric consultation was requested regarding possibility of overdose on medication including pain medication and benzodiazepine. Review of the records executes any history of psychiatric treatment or hospitalization. Patient stated that she had long history of osteoporosis and hip dislocation mostly on the right he stated that this is a very painful condition and she try to take extra dose of medication to control the pain prior to going to the hospital. He denied any intense self-harm and denies any previous history of suicide ideation or depression. Patient was alert and awake, speech was logical and coherent and there was no evidence of any psychosis or mood disorder. CC: Rashid Posadas MD Past Med Surg Social Fam HX - Past Medical History Medical history: arthritis, cancer, CHF, hepatitis, hypertension, malignancy, pulmonary embolus, other (spondylosis, DJD, ) - Past Surgical History Surgical History: hip replacement, orthopedic, other - Social History Smoking Status: Current every day smoker Smokeless Tobacco Status: No Alcohol use: heavy (4 beers per day), recent Drug use: marijuana, IVDU (history), prescription drug abuse - Family History Father Hx Family Cancer: Yes Medications & Allergies [place]-3/Dha/Epa/Fish Oil [Fish Oil 1,000 mg Softgel] 1,000 mg PO DAILY 11/11/16 [History] Nicotine Patch [Nicoderm] 21 mg TD DAILY #30 patch.td24 11/21/16 [Rx] Morphine Immed Rel [Morphine Sulfate] 15 mg PO Q2H PRN #60 tab 04/27/17 [Rx] Morphine Sulfate SR (12 HR) [MS Contin] 15 mg PO Q12HR #60 tablet.er 11/26/16 [ Rx] Docusate Sodium [Colace] 100 mg PO BID #60 capsule 11/30/16 [Rx] Sennosides [Senna] 2 tab PO HS #60 tablet 11/30/16 [Rx] OxyCODONE ER (12 HR) [OxyCONTIN] 10 mg PO Q12HR 12/03/16 [History] OxyCODONE/APAP 10/325 [Percocet 10/325 MG] 1 each PO Q4HR PRN 12/03/16 [History] Rivaroxaban [Xarelto] 15 mg PO BID 12/03/16 [History] Allergies NSAIDS (Non-Steroidal Anti-Inflamma Adverse Reaction (Severe, Verified 11/30/16 18:19) Vomiting Cyclobenzaprine Adverse Reaction (Intermediate, Verified 11/30/16 18:19) Agitated Mental Status Exam Patient orientation: Yes Person, Yes Time, Yes Place Level of alertness: Alert Patient appearance: Appropriate, Unkempt Behavior: calm, cooperative Psychomotor activity: Normal Eye contact: Fleeting Contact Mood description: Euthymic/stable Affect description: congruent with mood, full range Speech pattern: Normal rate, Normal rhythm, Normal tone, Coherent Speech volume: Normal Thought process: Linear, Goal Oriented Thought content: No Suicidal ideation, No Homicidal ideation, No Overt delusions Perceptual disturbances: No Auditory hallucinations, No Visual hallucinations Attention span: Capable of Focused Attention Memory description: Grossly Intact Patient reliability: Reliable Historian Intelligence estimate: Average Judgment: Limited Insight: Partial Results - Vital Signs Vital signs: Temp Pulse Resp BP Pulse Ox 97.4 F L 91 14 136/94 97 12/05/16 11:16 12/05/16 11:16 12/05/16 11:16 12/05/16 11:16 12/05/16 11:16 - Labs Labs: Laboratory Last Values WBC 5.5 K/mcL (4.3-11.1) 12/03/16 12:19 RBC 4.85 M/mcL (4.19-5.50) 12/03/16 12:19 Hgb 13.9 g/dL (12.9-16.9) D 12/05/16 03:51 Hct 40.0 % (37.5-50.1) 12/05/16 03:51 MCV 101.6 fL (83.0-100.0) H 12/03/16 12:19 MCH 34.6 pg (28.0-33.3) H 12/03/16 12:19 MCHC 34.1 g/dL (31.6-35.5) 12/03/16 12:19 RDW 12.2 % (11.5-14.5) 12/03/16 12:19 Plt Count 149 K/mcL (140-400) 12/03/16 12:19 MPV 10.8 fL (9.4-12.4) 12/03/16 12:19 Immature Gran % 0.5 % (0-4) 12/03/16 12:19 Seg Neutrophils % 63.3 % 12/03/16 12:19 Lymphocytes % 22.3 % 12/03/16 12:19 Monocytes % 10.9 % 12/03/16 12:19 Eosinophils % 2.5 % 12/03/16 12:19 Basophils % 0.5 % 12/03/16 12:19 Neutrophils # 3.5 K/mcL (1.6-8.9) 12/03/16 12:19 Lymphocytes # 1.2 K/mcL (0.6-4.6) 12/03/16 12:19 Monocytes # 0.6 K/mcL (0.0-1.3) 12/03/16 12:19 Eosinophils # 0.1 K/mcL (0.0-0.6) 12/03/16 12:19 Basophils # 0.0 K/mcL (0.0-0.2) 12/03/16 12:19 PT 13.8 Seconds (9.4-12.1) H 12/03/16 12:19 INR 1.3 12/03/16 12:19 APTT 31.7 Seconds (26.0-36.0) 12/03/16 12:19 ABG pH 7.48 pH Units (7.32-7.45) H 12/03/16 20:41 ABG pCO2 46 mmHg (35-45) H 12/03/16 20:41 ABG pO2 73 mmHg (85-104) L 12/03/16 20:41 ABG HCO3 34.3 mEQ/L (21-27) H 12/03/16 20:41 ABG Total CO2 35.7 mEq/L (20-26) H 12/03/16 20:41 ABG O2 Saturation 96 % (95-98) 12/03/16 20:41 ABG Base Excess 9.3 mEq/L (-2.0 to 3.0) H 12/03/16 20:41 Blood Gas Modality RA 12/03/16 20:41 Inspired O2 21 % 12/03/16 20:41 Sodium 137 mEq/L (136-145) 12/05/16 03:51 Potassium 4.0 mEq/L (3.5-4.5) 12/05/16 03:51 Chloride 103 mEq/L (98-109) 12/05/16 03:51 Carbon Dioxide 26 mEq/L (19-29) 12/05/16 03:51 BUN 7 mg/dL (8-26) L 12/05/16 03:51 Creatinine 0.73 mg/dL (0.72-1.25) 12/05/16 03:51 Est GFR ( Amer) > 60 (> 60) 12/05/16 03:51 Est GFR (Non-Af Amer) > 60 (> 60) 12/05/16 03:51 BUN/Creatinine Ratio 10 (6-26) 12/05/16 03:51 Glucose 123 mg/dL (70-99) H 12/05/16 03:51 POC Glucose 112 (58-89) H 12/03/16 11:15 Calculated Osmolality 283 (280-300) 12/05/16 03:51 Lactic Acid 2.1 mmol/L (0.5-2.2) 12/03/16 13:03 Calcium 9.0 mg/dL (8.6-10.8) 12/05/16 03:51 Total Bilirubin 1.1 mg/dL (0.2-1.2) 12/04/16 08:38 Direct Bilirubin 0.6 mg/dL (0.0-0.5) H 12/03/16 12:19 Indirect Bilirubin 0.8 mg/dL (0.0-1.2) 12/03/16 12:19 AST 53 Units/L (5-34) H 12/04/16 16:28 ALT 44 Units/L (0-55) 12/04/16 08:38 Alkaline Phosphatase 146 Units/L (38-126) H 12/04/16 08:38 Ammonia 25 mcmol/L (18-72) 12/03/16 12:19 Creatine Kinase 968 Units/L (30-200) H 12/03/16 12:19 Troponin I 0.00 ng/mL (0-0.03) 12/03/16 12:19 C-Reactive Protein 44 mg/L (Less than 5) H 12/03/16 12:19 B-Natriuretic Peptide 31 pg/mL (0-100) 12/03/16 12:19 Serum Total Protein 6.9 g/dL (6.0-8.3) 12/04/16 08:38 Albumin 3.0 g/dL (3.5-5.0) L D 12/04/16 08:38 Globulin 3.9 g/dL (2.4-3.5) H 12/04/16 08:38 Albumin/Globulin Ratio 0.8 (1.1-2.2) L 12/04/16 08:38 TSH 1.979 mcIU/mL (0.350-4.840) 12/03/16 12:19 Urine Color Yellow (Yellow) 12/03/16 11:59 Urine Clarity Clear (Clear) 12/03/16 11:59 Urine pH 6.5 pH Units (5.0-8.0) 12/03/16 11:59 Ur Specific [place] 1.011 (1.010-1.025) 12/03/16 11:59 Urine Protein Negative mg/dL (Neg-Trace) 12/03/16 11:59 Urine Glucose (UA) Normal mg/dL (Normal) 12/03/16 11:59 Urine Ketones Negative mg/dL (Negative) 12/03/16 11:59 Urine Blood Moderate (Negative) H 12/03/16 11:59 Urine Nitrite Negative (Negative) 12/03/16 11:59 Urine Bilirubin Negative (Negative) 12/03/16 11:59 Urine Urobilinogen Normal mg/dL (Normal) 12/03/16 11:59 Ur Leukocyte Esterase Negative (Negative) 12/03/16 11:59 Urine Microscopic RBC 5-15 per hpf (0-3) H 12/03/16 11:59 Urine Microscopic WBC 0-3 per hpf (0-3) 12/03/16 11:59 Ur Squamous Epith Cells Moderate per lpf (None-Few) H 12/03/16 11:59 Urine Bacteria None Seen per hpf (None-Few) 12/03/16 11:59 Hyaline Casts None Seen per lpf (None-Few) 12/03/16 11:59 Ur Culture Indicated? NO (NO) 12/03/16 11:59 Salicylates < 5.0 mg/dL (15-30) L 12/03/16 12:19 Urine Opiates Screen Positive ng/mL (Ihrqrr=097) H 12/03/16 11:59 Acetaminophen < 1.0 mcg/mL (10-30) L 12/03/16 19:17 Ur Barbiturates Screen Negative ng/mL (Dyhpyj=058) 12/03/16 11:59 Ur Phencyclidine Scrn Negative ng/mL (Cutoff=25) 12/03/16 11:59 Ur Amphetamines Screen Negative ng/mL (Cwyepk=6332) 12/03/16 11:59 U Benzodiazepines Scrn Positive ng/mL (Etuili=914) H 12/03/16 11:59 Urine Cocaine Screen Negative ng/mL (Cutoff= 300) 12/03/16 11:59 U Marijuana (THC) Screen Negative ng/mL (Cutoff = 50) 12/03/16 11:59 Ethyl Alcohol < 10 mg/dL (0-10) 12/03/16 12:19 Specimen Rejected Hemolyzed 12/03/16 12:19 - Impressions Impressions Fluoroscopy 12/04/16 15:15 IMPRESSION: Intraprocedural fluoroscopic spot images as above. See separate procedure report for more information. D/ / 12/04/2016 16:12:04 Luke Mendoza MD / bcaclint Interpreting Provider: Luke Mendoza MD Hip X-Ray 12/04/16 15:15 IMPRESSION: Intraprocedural fluoroscopic spot images as above. See separate procedure report for more information. D/ / 12/04/2016 16:12:04 Luke Mendoza MD / coleman Interpreting Provider: Luke Mendoza MD Hip X-Ray 12/04/16 15:23 IMPRESSION: 1. Interval reduction of previously seen femoroacetabular dislocation. Alignment is now anatomic. D/ / Herve Rayo MD / Herve Rayo MD Interpreting Provider: Herve Rayo MD Consult Discharge Plan - Plan Referrals: Faustino King DO [Primary Care Provider] -
[2016-12-05] MEDS: Sennosides 8.6 MG TABLET PO SCH (20:32)
[2016-12-06] MEDS: *HR* Morphine Immed Rel 30 MG TABLET PO PRN ×3 (01:46→13:14)
[2016-12-06 04:51] LABS: Hematocrit 36.7 % (37.5-50.1); Hemoglobin 12.4 g/dL (12.9-16.9)
[2016-12-06 05:03] LABS: BUN/Creatinine Ratio 16 (6-26); Blood Urea Nitrogen 11 mg/dL (8-26); Calcium 8.6 mg/dL (8.6-10.8); Carbon Dioxide 28 mEq/L (19-29); Chloride 105 mEq/L (98-109); Glucose 86 mg/dL (70-99); Osmolality,Calculated 285 (280-300); Potassium 3.9 mEq/L (3.5-4.5); Sodium 138 mEq/L (136-145); eGFR For African Americans > 60 (> 60); eGFR For Non-African Americans > 60 (> 60)
[2016-12-06] MEDS: *HR* Morphine Sulfate SR (12 HR) 30 MG TABLET.ER PO SCH (05:53)
[2016-12-06] MEDS: Multivit/Ca/Min/Fe/FA 1 TAB TABLET PO SCH (08:48)
[2016-12-06] MEDS: *HR* Rivaroxaban 15 MG TABLET PO SCH (08:48)
[2016-12-06] MEDS: Nicotine 14 MG PATCH.TD24 TD SCH (08:48)
[2016-12-06 09:27] VITALS: BP 111/70
--- NOTE | 2016-12-06 10:24 | Discharge Summary ---
Date of Encounter: 12/06/16 Time of Encounter: 09:30 - Discharge Diagnosis (1) Abnormal liver function tests Priority: Primary Status: Resolved (2) Altered mental status Priority: Primary Status: Resolved Qualifiers: Altered mental status type: somnolence Qualified Code(s): R40.0 - Somnolence (3) Drug overdose Priority: Primary Status: Acute Qualifiers: Encounter type: initial encounter Injury intent: undetermined intent Qualified Code(s): T50.904A - Poisoning by unspecified drugs, medicaments and biological substances, undetermined, initial encounter (4) Hip dislocation, right Priority: Primary Status: Resolved Qualifiers: Encounter type: initial encounter Qualified Code(s): S73.004A - Unspecified dislocation of right hip, initial encounter (5) Pulmonary emboli Priority: Secondary Status: Chronic Qualifiers: Pulmonary embolism type: other Chronicity: acute Acute cor pulmonale presence: without acute cor pulmonale Qualified Code(s): I26.99 - Other pulmonary embolism without acute cor pulmonale (6) Prostate cancer metastatic to bone Priority: Secondary Status: Chronic (7) Tobacco abuse Priority: Secondary Status: Chronic (8) Depression Priority: Secondary Status: Chronic Qualifiers: Depression Type: major depressive disorder Major depression recurrence: recurrent Active/Remission status: currently active Major depression episode severity: severe Psychotic features: without psychotic features Qualified Code(s): F33.2 - Major depressive disorder, recurrent severe without psychotic features - Discharge Medications Prescriptions: Ascorbic Acid [Vitamin C] 500 mg PO BIDWM #60 tablet Ferrous Sulfate 325 mg PO BIDWM #60 tablet Multivit/Ca/Min/Fe/FA [Thera M Plus] 1 tab PO DAILY #30 tablet Home Medications: [place]-3/Dha/Epa/Fish Oil [Fish Oil 1,000 mg Softgel] 1,000 mg PO DAILY 11/11/16 [History] Nicotine Patch [Nicoderm] 21 mg TD DAILY #30 patch.td24 11/21/16 [Rx] Morphine Immed Rel [Morphine Sulfate] 15 mg PO Q2H PRN #60 tab 11/26/16 [Rx] Morphine Sulfate SR (12 HR) [MS Contin] 15 mg PO Q12HR #60 tablet.er 11/26/16 [ Rx] Docusate Sodium [Colace] 100 mg PO BID #60 capsule 11/30/16 [Rx] Sennosides [Senna] 2 tab PO HS #60 tablet 11/30/16 [Rx] OxyCODONE ER (12 HR) [OxyCONTIN] 10 mg PO Q12HR 12/03/16 [History] OxyCODONE/APAP 10/325 [Percocet 10/325 MG] 1 each PO Q4HR PRN 12/03/16 [History] Rivaroxaban [Xarelto] 15 mg PO BID 12/03/16 [History] Ascorbic Acid [Vitamin C] 500 mg PO BIDWM #60 tablet 12/06/16 [Rx] Ferrous Sulfate 325 mg PO BIDWM #60 tablet 12/06/16 [Rx] Multivit/Ca/Min/Fe/FA [Thera M Plus] 1 tab PO DAILY #30 tablet 12/06/16 [Rx] Allergies/Adverse Reactions: Allergies NSAIDS (Non-Steroidal Anti-Inflamma Adverse Reaction (Severe, Verified 11/30/16 18:19) Vomiting Cyclobenzaprine Adverse Reaction (Intermediate, Verified 11/30/16 18:19) Agitated Date of admission: 12/03/16 19:13 Primary care physician: Faustino King DO Consults: 12/04/16 04:17 Consult to Pasteurizing Machine Operator [CONS] Routine Reason for SW Consult: DISCHARGE PLANNING, PT LIVES IN HOUSING ON [facility]. 12/04/16 09:37 Consult to Palliative Care [CONS] Routine Comment: Consulting Provider: Palliative Care [facility] Reason for Consult: Patient with metastatic disease, wishes to be evaluated for home hospice Call Completed: No Consult to Psychiatry [CONS] Routine Consulting Provider: Psychiatry [facility] Reason for Consult: Drug overdose Call Completed: No 12/04/16 16:29 Consult to Nurse Navigator [CONS] Routine Comment: ortho navigator Consult to Occupational Therapy [CONS] Routine Comment: Evaluate, develop and implement POC Reason for Consult: total hip replacement Consult to Physical Therapy [CONS] Routine Comment: Evaluate, develop and implement POC Reason for Consult: total hip replacement Consult to Pasteurizing Machine Operator [CONS] Routine Reason for SW Consult: post op joint replacement RT Post Op Consult [CONS] Routine Discharging clinician: Samson lay) Anticipated date of discharge: 12/06/16 - Patient Status Disposition: Home, Self-Care Condition: Fair Functional capacity at discharge: uses cane/walker - Discharge Instructions Follow Up With: Faustino King DO [Primary Care Provider] - Cristobal Ugarte MD [Partnered Physician] - Additional Instructions: Follow up with radiation oncology 12/09 follow up with [facility] within one week Follow up with PCP - Diet and Activity Activity: resume usual activities as tolerated Diet: regular diet Interval History: See below Hospital course: 61 M with PMH of metastatic prostate CA, Chronic pain syndrome from severe DJD, recurrent Right hip dislocation, DVT/PE, Tobacco abuse Patient was admitted and managed for pain medication overdose , suspected due to depression and increased R hip pain from acute on chronic hip dislocation He was somnolent and combative on admission, received Narcan with good response Patient is on pain medications for his metastatic CA He was admitted, work up was unremarkable except for mild transaminitis. Poison control was contacted and recommended an acetylcysteine protocol LFTS has improved R hip Xray showed dislocated R hip which was reduced under anesthesia by orthopedics, with repeat Xray WNL Psychiatrist Dr. Singer has evaluated the patient and states patient is clear , and is not suicidal Patient seen at bedside this morning He is stable for discharge PT recommends walker, provided for patient Palliative care was consulted as patient mentioned interest in home hospice, however, patient has an appointment with Radiation-Oncology 12/09 and after this visit, he will contact palliative if still interested with hospice Per Orthopedic surgery, patient should follow up in their clinic Follow up with PCP/Oncology/Orthopedics 3 minutes spent on tobacco cessation counselling Time spent discussing smoking cessation with patient: 3 to 10 minutes (3 minutes spent discussing tobacco cessation) - Time Spent with Patient Total time spent providing and/or coordinating discharge services: Less than 30 minutes - Constitutional Vitals: Temp Pulse Resp BP Pulse Ox 98.1 F 71 16 111/70 95 12/06/16 09:00 12/06/16 09:00 12/06/16 09:00 12/06/16 09:00 12/06/16 09:00 General appearance: Present: A&O X 3, pleasant, no acute distress - Head Head exam: Present: atraumatic, normocephalic - Eye Eye exam: Present: PERRL, conjuntiva pink, sclera anicteric Pupils: Present: PERRL - Neck Neck exam general surgery: Present: supple, trachea midline. Absent: lymphadenopathy - Respiratory Respiratory exam: Present: CTAB. Absent: accessory muscle use, rales, rhonchi, wheezes - Cardiovascular Cardiovascular exam: Present: RRR, +S1, +S2. Absent: diastolic murmur, gallop, rubs, systolic murmur - GI/Abdominal GI/Abdominal exam: Present: normal bowel sounds, soft, no peritoneal signs. Absent: distended, tenderness - Extremities Exam Extremities exam: Present: warm, radial pulses palpable and symetrical. Absent : calf tenderness, cyanotic, pedal edema - Neurological Exam Neurological exam: Present: alert, CN II-XII intact, oriented X3, no focal deficits. Absent: pronater drift, facial droop, speech deficit - Skin Skin exam: Present: dry, intact
--- NOTE | 2016-12-06 11:04 | Orthopedics Progress Note ---
Date of Encounter: 12/06/16 Time of Encounter: 11:03 Subjective Interval history: S: No complaints. Pain well controlled. O: Afeb, VSS Leg lengths equal, no deformity. NV intact distally. Calves soft. A: Post op day 2 after reduction of right hip prosthetic dislocation P: Resume post op care Posterior hip precautions Knee immobilizer to the right knee. Objective Vital signs: Vital Signs Temp Pulse Resp BP Pulse Ox 12/06/16 09:00 98.1 F 71 16 111/70 95 12/06/16 03:49 97.5 F L 63 19 111/80 96 12/06/16 00:14 97.9 F 66 14 110/77 96 12/05/16 19:33 98.2 F 75 15 118/74 96 12/05/16 17:00 94 18 124/80 96 12/05/16 15:33 97.4 F L 71 15 117/75 98 12/05/16 11:16 97.4 F L 91 14 136/94 97 Intake and Output 12/05/16 12/06/16 12/06/16 23:59 07:59 15:59 Intake Total 2960 / 2960 480 / 480 240 / 240 Output Total 975 / 975 1075 / 1075 Balance 1984 / 1984 -595 / -595 240 / 240 Intake: IV Fluids 1000 / 1000 Lactated Ringers 1,000 ML 1000 / 1000 @ 75 mls/hr IVC .[id number] [facility] Rx#:[id number] Oral 1960 / 1960 480 / 480 240 / 240 Output: Urine 975 / 975 1075 / 1075 Other: Meal Dinner side salad Breakfast Percent of Meal Consumed 80% 100% 100% Weight 71.9 kg Patient Weight 12/06/16 23:59 Weight 71.9 kg - Labs CBC & BMP: 12/06/16 04:37 12/06/16 04:37 Labs: Abnormal lab results Hgb 12.4 g/dL (12.9-16.9) L D 12/06/16 04:37 Hct 36.7 % (37.5-50.1) L 12/06/16 04:37 MCV 101.6 fL (83.0-100.0) H 12/03/16 12:19 MCH 34.6 pg (28.0-33.3) H 12/03/16 12:19 PT 13.8 Seconds (9.4-12.1) H 12/03/16 12:19 ABG pH 7.48 pH Units (7.32-7.45) H 12/03/16 20:41 ABG pCO2 46 mmHg (35-45) H 12/03/16 20:41 ABG pO2 73 mmHg (85-104) L 12/03/16 20:41 ABG HCO3 34.3 mEQ/L (21-27) H 12/03/16 20:41 ABG Total CO2 35.7 mEq/L (20-26) H 12/03/16 20:41 ABG Base Excess 9.3 mEq/L (-2.0 to 3.0) H 12/03/16 20:41 Creatinine 0.67 mg/dL (0.72-1.25) L 12/06/16 04:37 POC Glucose 112 (58-89) H 12/03/16 11:15 Direct Bilirubin 0.6 mg/dL (0.0-0.5) H 12/03/16 12:19 AST 53 Units/L (5-34) H 12/04/16 16:28 Alkaline Phosphatase 146 Units/L (38-126) H 12/04/16 08:38 Creatine Kinase 968 Units/L (30-200) H 12/03/16 12:19 C-Reactive Protein 44 mg/L (Less than 5) H 12/03/16 12:19 Albumin 3.0 g/dL (3.5-5.0) L D 12/04/16 08:38 Globulin 3.9 g/dL (2.4-3.5) H 12/04/16 08:38 Albumin/Globulin Ratio 0.8 (1.1-2.2) L 12/04/16 08:38 Urine Blood Moderate (Negative) H 12/03/16 11:59 Urine Microscopic RBC 5-15 per hpf (0-3) H 12/03/16 11:59 Ur Squamous Epith Cells Moderate per lpf (None-Few) H 12/03/16 11:59 Salicylates < 5.0 mg/dL (15-30) L 12/03/16 12:19 Urine Opiates Screen Positive ng/mL (Azxkyy=798) H 12/03/16 11:59 Acetaminophen < 1.0 mcg/mL (10-30) L 12/03/16 19:17 U Benzodiazepines Scrn Positive ng/mL (Iqkdhz=023) H 12/03/16 11:59 Consult Discharge Plan - Plan Additional Instructions: Follow up with radiation oncology 12/09 follow up with [facility] within one week Follow up with PCP Referrals: Faustino King DO [Primary Care Provider] - Cristobal Ugarte MD [Partnered Physician] - Prescriptions: Ascorbic Acid [Vitamin C] 500 mg PO BIDWM #60 tablet Ferrous Sulfate 325 mg PO BIDWM #60 tablet Multivit/Ca/Min/Fe/FA [Thera M Plus] 1 tab PO DAILY #30 tablet
--- NOTE | 2016-12-09 13:48 | Orthopedic Operative Note ---
Date of procedure: 12/04/16 Pre-op diagnosis: Right total hip dislocation Post-op diagnosis: same Procedure: Procedure: Closed reduction right hip with anesthesia Estimated blood loss 0 Dictation of procedure: Patient brought to the operating room after general anesthesia was monitored by the anesthesia team a closed reduction was performed of the right hip this was accomplished with forward flexion and adduction. The hip often without significant difficulty. Leg lengths appeared to be equal. Reduction was confirmed with fluoroscopy. Patient extubated and transferred to recovery in stable condition after a knee immobilizer and abduction pillow was placed Anesthesia: ALVAREZ Surgeon: Gilberto Valentine Condition: stable Disposition: PACU
== END 2016-12-06 16:45 | disposition home or self-care (01) | DRG 812 ==
LOC: 3NENU 11:01 → EMEROO 11:01 → 2NNU 18:48
PROVIDERS: ADMIT Hospitalist; ATTEND Internal Medicine

== ENCOUNTER 2017-05-14 18:39 | Inpatient (IN) ==
[2017-05-14] MEDS ORDERED: Bisacodyl 10 MG RECTAL SUPPOSITORY RC PRN (19:11)
[2017-05-14] MEDS ORDERED: Atropine Sulfate 1% 40 DROP/2 ML BOTTLE SL PRN (19:11)
[2017-05-14] MEDS ORDERED: Haloperidol Oral Conc 10 MG/5 ML UDC PO PRN (19:11)
--- NOTE | 2017-05-14 19:46 | Pallative History & Physical ---
Date of Encounter: 05/14/17 Time of Encounter: 19:30 Assessment and Plan (1) Prostate cancer metastatic to bone Current visit: No Status: Chronic Patient to one stay on his feet are now remained at home alone. Patient will transition to assisted first require general inpatient hospice for safety sake. Also for pain control. (2) Tobacco abuse Current visit: No Status: Chronic We will start a nicotine patch. (3) Constipation Current visit: No Status: Acute Senna and Dulcolax suppositories. Qualifiers: Constipation type: slow transit constipation Qualified Code(s): K59.01 - Slow transit constipation (4) Goals of care, counseling/discussion Current visit: No Status: Acute DO NOT RESUSCITATE comfort care, patient is on GIP hospice will transition to assisted next week. Internal Medicine - H&P: HPI Chief complaint: weakness Admitted From: Direct Admit Plans for Post Hospital Care: Hospice - Home History of present illness: Mr. Enriquez is a 61 year old male A history of prostate cancer with metastases to the bone. Patient has been in a very rapid decline for the last day or 2. Especially today. Patient also fell is no longer able to get up and get around. Patient's going to require change to a assisted. However at this time the patient cannot stay at home alone as he is completely unstable on his feet having increasing pain and altered mental status. Patient does have a history of metastatic prostate cancer for which he is in hospice. He was brought on the general inpatient hospice for patient safety, as well as pain control. Past Med Surg Social Fam HX - Past Medical History Medical history: arthritis, cancer, CHF, hepatitis, hypertension, malignancy, pulmonary embolus, other Psychiatric history: anxiety - Past Surgical History Surgical History: hip replacement, orthopedic, other - Social History Smoking Status: Current every day smoker Smokeless Tobacco Status: No Alcohol use: heavy, recent Drug use: marijuana, IV Drug Use, prescription drug abuse - Family History Father Hx Family Cancer: Yes Internal Medicine - H&P: Meds [place]-3/Dha/Epa/Fish Oil [Fish Oil 1,000 mg Softgel] 1,000 mg PO DAILY 11/11/16 [History] Nicotine Patch [Nicoderm] 21 mg TD DAILY #30 patch.td24 11/21/16 [Rx] Morphine Sulfate SR (12 HR) [MS Contin] 15 mg PO Q12HR #60 tablet.er 11/26/16 [ Rx] Docusate Sodium [Colace] 100 mg PO BID #60 capsule 11/30/16 [Rx] Sennosides [Senna] 2 tab PO HS #60 tablet 11/30/16 [Rx] OxyCODONE/APAP 10/325 [Percocet 10/325 MG] 1 each PO Q4HR PRN 12/03/16 [History] Ascorbic Acid [Vitamin C] 500 mg PO BIDWM #60 tablet 12/06/16 [Rx] Ferrous Sulfate 325 mg PO BIDWM #60 tablet 12/06/16 [Rx] Multivit/Ca/Min/Fe/FA [Thera M Plus] 1 tab PO DAILY #30 tablet 12/06/16 [Rx] Rivaroxaban [Xarelto] 20 mg PO DAILY #30 tablet 12/07/16 [Rx] Morphine Immed Rel [Morphine Sulfate] 15 mg PO Q2H PRN #60 tab 12/10/16 [Rx] 3 Allergy/AdvReac Type Severity Reaction Status Date / Time NSAIDS (Non-Steroidal AdvReac Severe Vomiting Verified 11/30/16 18:19 Anti-Inflamma Cyclobenzaprine AdvReac Intermediate Agitated Verified 11/30/16 18:19 ROS unobtainable: due to mental status Palliative Care-Exam - Constitutional General appearance: Present: no acute distress - Head Head Exam: Present: atraumatic, normal inspection - Eye Eye exam: Present: normal appearance - ENT ENT exam: Present: mucous membranes moist - Respiratory Respiratory exam: Present: decreased breath sounds - Cardiovascular Cardiovascular exam: Present: RRR - GI/Abdominal Exam GI/Abdominal exam: Present: normal bowel sounds, soft. Absent: tenderness - Neurological Exam Neurological exam: Present: alert, altered - Psychiatric Psychiatric exam: Absent: agitated, anxious - Skin Skin exam: Present: dry, warm Palliative Quality Palliative Quality: Screen for Code Status: Yes, Screen for Goals of Care: Yes, Screen for Pain: Yes, If Pain Regimen Started, Initiate Bowel Regimen: Yes, Screen for Nausea/Vomitting: Yes Code Status: 05/14/17 19:11 Resuscitation Status: Active [RES] Stat Comment: Resuscitation Status: DNR-Comfort Care
[2017-05-14] MEDS: Morphine Oral CONC 5 MG/0.25 ML ORAL.SYG PO PRN (22:23)
[2017-05-14] MEDS: Sennosides/Docusate Sodium TABLET PO SCH (23:07)
[2017-05-15] MEDS: *HR* Morphine Sulfate SR (12 HR) 15 MG TABLET.ER PO SCH ×4 (00:20→23:47)
[2017-05-15] MEDS: Morphine Oral CONC 5 MG/0.25 ML ORAL.SYG PO PRN ×2 (05:39→21:41)
[2017-05-15] MEDS: *HR* Methadone 5 MG TABLET PO SCH ×2 (05:39→17:43)
--- NOTE | 2017-05-15 07:24 | Palliative Progress Note ---
Date of Encounter: 05/15/17 Time of Encounter: 06:50 - Assessment and plan (1) Prostate cancer metastatic to bone Current Visit: No Status: Chronic Assessment and plan: Patient to one stay on his feet are now remained at home alone. Patient will transition to snf first require general inpatient hospice for safety sake. Also for pain control. No changes this morning (2) Tobacco abuse Current Visit: No Status: Chronic Assessment and plan: We will start a nicotine patch. His patch will start this morning (3) Constipation Current Visit: No Status: Acute Assessment and plan: Senna and Dulcolax suppositories. Patient refusing bowel regimen continue to watch Qualifiers: Constipation type: slow transit constipation Qualified Code(s): K59.01 - Slow transit constipation (4) Goals of care, counseling/discussion Current Visit: No Status: Acute Assessment and plan: DO NOT RESUSCITATE comfort care, patient is on GIP hospice will transition to snf next week. (5) Urinary retention Current Visit: Yes Status: Acute Assessment and plan: Patient is currently in no distress whatsoever. We will Watch Cl[address] [place] as needed. - Time Spent With Patient Total time spent is greater than 50% in coordination of care (as documented) at patient's floor/unit and/or counseling patient: - Subjective Interval history: No events noted overnight patient utilizing medications appropriately. Note after seeing the patient that the bladder scan showing 504 and has no complaints of, however there is some distention in the bladder area. Place Hamlin catheter when necessary. - Constitutional General appearance: Present: no acute distress - Head Head exam: Present: atraumatic, normal inspection - Eye Eye exam: Present: normal appearance - Respiratory Respiratory exam: Present: decreased breath sounds - Cardiovascular Cardiovascular exam: Present: RRR - GI/Abdominal GI/Abdominal exam: Present: distended (A little distended around the bladder), normal bowel sounds, soft. Absent: tenderness (Little distended around the bladder) - Extremities Exam Extremities exam: Present: normal inspection. Absent: pedal edema, tenderness - Neurological Exam Neurological exam: Present: altered - Psychiatric Psychiatric exam: Absent: agitated, anxious - Skin Skin exam: Present: dry, warm Palliative Quality Palliative Quality: Screen for Code Status: Yes, Screen for Goals of Care: Yes, Screen for Pain: Yes, If Pain Regimen Started, Initiate Bowel Regimen: Yes, Screen for Nausea/Vomitting: Yes Code Status: 05/14/17 19:11 Resuscitation Status: Active [RES] Stat Comment: Resuscitation Status: DNR-Comfort Care Consult Discharge Plan - Plan Referrals: NONE,PCP [Primary Care Provider] -
[2017-05-15] MEDS ORDERED: Dexamethasone 4 MG/ML VIAL IVP SCH (09:00)
[2017-05-15] MEDS: Nicotine 14 MG PATCH.TD24 TD SCH (10:28)
[2017-05-15] MEDS: Sennosides/Docusate Sodium TABLET PO SCH ×2 (10:28→21:37)
[2017-05-15] MEDS: Furosemide 40 MG TABLET PO SCH ×2 (10:28→17:40)
[2017-05-16] MEDS: *HR* Methadone 5 MG TABLET PO SCH ×2 (05:10→17:09)
--- NOTE | 2017-05-16 07:41 | Palliative Progress Note ---
Date of Encounter: 05/16/17 Time of Encounter: 07:05 - Assessment and plan (1) Prostate cancer metastatic to bone Current Visit: No Status: Chronic Assessment and plan: Patient to one stay on his feet are now remained at home alone. Patient will transition to longterm first require general inpatient hospice for safety sake. Also for pain control. I have asked the patient to make sure to ask for pain medication when he feels he needs it. Used very little but complains that the pain medication is not adequate for him area and I believe that this is due to the fact he is not requesting. I will not change his [place] or his methadone today. Continue to watch. Again I have and he is no bothered anybody, and that he should ask for his pain meds when he feels like he needs them. (2) Tobacco abuse Current Visit: No Status: Chronic Assessment and plan: We will start a nicotine patch. His patch is in place. (3) Constipation Current Visit: No Status: Acute Assessment and plan: Senna and Dulcolax suppositories. Increasing senna. Refused. However we will continue to try. Qualifiers: Constipation type: slow transit constipation Qualified Code(s): K59.01 - Slow transit constipation (4) Goals of care, counseling/discussion Current Visit: No Status: Acute Assessment and plan: DO NOT RESUSCITATE comfort care, patient is on GIP hospice will transition to longterm next week. No changes today. (5) Urinary retention Current Visit: Yes Status: Acute Assessment and plan: Patient finally did start having some discomfort discomfort. Hamlin placed with immediate relief of discomfort patient doing much better. - Time Spent With Patient Total time spent is greater than 50% in coordination of care (as documented) at patient's floor/unit and/or counseling patient: - Subjective Interval history: Patient reports doing poorly overnight due to pain, she did not sleep at all all night. She does report that he was sleeping after being given meds. Patient doing much better now with a Hamlin catheter in arch amount of output. Encouraged patient to take his medications when he feels like he needs them. He Feels that he is a bother to the nurses. I have assured him that he is not.. - Constitutional General appearance: Present: no acute distress - Head Head exam: Present: atraumatic, normal inspection - Eye Eye exam: Present: normal appearance - Neck Neck exam: Present: normal inspection - Respiratory Respiratory exam: Present: decreased breath sounds - Cardiovascular Cardiovascular exam: Present: RRR - GI/Abdominal GI/Abdominal exam: Present: normal bowel sounds, soft. Absent: tenderness - Extremities Exam Extremities exam: Present: normal inspection. Absent: pedal edema, tenderness - Neurological Exam Neurological exam: Present: alert - Psychiatric Psychiatric exam: Absent: agitated, anxious - Skin Skin exam: Present: dry, warm Palliative Quality Palliative Quality: Screen for Code Status: Yes, Screen for Goals of Care: Yes, Screen for Pain: Yes, If Pain Regimen Started, Initiate Bowel Regimen: Yes, Screen for Nausea/Vomitting: Yes Code Status: 05/14/17 19:11 Resuscitation Status: Active [RES] Stat Comment: Resuscitation Status: DNR-Comfort Care Consult Discharge Plan - Plan Referrals: NONE,PCP [Primary Care Provider] -
[2017-05-16] MEDS: Sennosides/Docusate Sodium TABLET PO SCH ×2 (10:37→20:50)
[2017-05-16] MEDS: Nicotine 14 MG PATCH.TD24 TD SCH (10:37)
[2017-05-16] MEDS: Furosemide 40 MG TABLET PO SCH ×2 (10:37→17:09)
[2017-05-16] MEDS: Morphine Oral CONC 5 MG/0.25 ML ORAL.SYG PO PRN ×2 (10:38→15:16)
[2017-05-16] MEDS: *HR* Morphine Sulfate SR (12 HR) 15 MG TABLET.ER PO SCH ×3 (10:58→23:31)
[2017-05-16] MEDS: *HR* Morphine Soln 10 MG/5 ML UDC PO PRN (21:40)
[2017-05-17] MEDS: *HR* Methadone 5 MG TABLET PO SCH ×2 (05:35→16:45)
[2017-05-17] MEDS: Morphine Oral CONC 5 MG/0.25 ML ORAL.SYG PO PRN ×5 (05:40→21:43)
[2017-05-17] MEDS: Sennosides/Docusate Sodium TABLET PO SCH ×2 (09:06→21:43)
[2017-05-17] MEDS: Nicotine 14 MG PATCH.TD24 TD SCH (09:07)
[2017-05-17] MEDS: Furosemide 40 MG TABLET PO SCH ×2 (09:07→16:45)
[2017-05-17] MEDS: *HR* Morphine Sulfate SR (12 HR) 15 MG TABLET.ER PO SCH ×2 (09:07→16:45)
--- NOTE | 2017-05-17 13:53 | Palliative - Consult Note ---
Date of Encounter: 05/17/17 Time of Encounter: 13:45 - Assessment and Plan (1) Cancer associated pain Current Visit: Yes Status: Acute Assessment and plan: Patient with metastatic prostate cancer to bone. Patient with combo of scheduled methadone and MC contin as well as BTP morphine. I had a long detailed discussion with patient and educated him on scheduled and BTP meds. He verbalized understanding of meds but still reluctant to request additional meds as needed. He describes his pain as 4/10, generalized to his lower back, nonradiating and constant. Nursing medicated and will reassess. Patient states he will request meds as needed. (2) Tobacco abuse Current Visit: No Status: Chronic Assessment and plan: Nicotine patch on (3) Goals of care, counseling/discussion Current Visit: No Status: Acute Assessment and plan: Patient is DNRCC- Comfort care and is hospice care patient awaitiing ECF placement for safety and symptom management. (4) Prostate cancer metastatic to bone Current Visit: No Status: Chronic (5) Therapeutic opioid induced constipation Current Visit: No Status: Acute Assessment and plan: Senna and will monitor (6) Urinary retention Current Visit: Yes Status: Acute Assessment and plan: Hamlin in place. Tolerating well. Palliative-CN HPI - Data of Consult Patient: new to practice Consult date: 05/17/17 Requesting Physician: Marito Martins MD Primary Care Provider: PCP NONE - Consult Narrative Palliative Care/Comfort Measures: Palliative care Reason for consult: symptom management History of present illness: Mr. Enriquez is a 61 year old male admitted to [facility] from home where he suffered pain and an overall decline in function. He has a history of prostate cancer with metastases to the bone. Patient has been in a very rapid decline for the last day or 2. Patient reports having overall weakness and the inabilty to ambulate. Patient will likely require DC to ECF. However at this time the patient cannot stay at home alone as he is completely unstable on his feet having increasing pain and altered mental status. Patient is enrolled in hospice with terminal diagnosis of metastatic prostate cancer. This palliative care consult is for symptoma management. CC: Marito Martins MD Past Med Surg Social Fam HX - Past Medical History Medical history: arthritis, cancer, CHF, hepatitis, hypertension, malignancy, pulmonary embolus, other Psychiatric history: anxiety - Past Surgical History Surgical History: hip replacement, orthopedic, other - Social History Smoking Status: Current every day smoker Smokeless Tobacco Status: No Alcohol use: heavy, recent Drug use: marijuana, IV Drug Use, prescription drug abuse - Family History Father Hx Family Cancer: Yes Medications and Allergies [place]-3/Dha/Epa/Fish Oil [Fish Oil 1,000 mg Softgel] 1,000 mg PO DAILY 11/11/16 [History] Nicotine Patch [Nicoderm] 21 mg TD DAILY #30 patch.td24 11/21/16 [Rx] Morphine Sulfate SR (12 HR) [MS Contin] 15 mg PO Q12HR #60 tablet.er 11/26/16 [ Rx] Docusate Sodium [Colace] 100 mg PO BID #60 capsule 11/30/16 [Rx] Sennosides [Senna] 2 tab PO HS #60 tablet 11/30/16 [Rx] OxyCODONE/APAP 10/325 [Percocet 10/325 MG] 1 each PO Q4HR PRN 12/03/16 [History] Ascorbic Acid [Vitamin C] 500 mg PO BIDWM #60 tablet 12/06/16 [Rx] Ferrous Sulfate 325 mg PO BIDWM #60 tablet 12/06/16 [Rx] Multivit/Ca/Min/Fe/FA [Thera M Plus] 1 tab PO DAILY #30 tablet 12/06/16 [Rx] Rivaroxaban [Xarelto] 20 mg PO DAILY #30 tablet 12/07/16 [Rx] Morphine Immed Rel [Morphine Sulfate] 15 mg PO Q2H PRN #60 tab 12/10/16 [Rx] 3 Allergy/AdvReac Type Severity Reaction Status Date / Time NSAIDS (Non-Steroidal AdvReac Severe Vomiting Verified 11/30/16 18:19 Anti-Inflamma Cyclobenzaprine AdvReac Intermediate Agitated Verified 11/30/16 18:19 All systems: reviewed and no additional remarkable complaints except as stated ( overall aches and pain, weakness and fatique) - Constitutional Constitutional ROS PAL: decreased appetite, fatigue, frequent falls - Respiratory Respiratory: dyspnea on exertion - Gastrointestinal Gastrointestinal: constipation - Genitourinary Genitourinary ROS male: difficulty urinating (Hamlin placed on admit) - Musculoskeletal Musculoskeletal ROS IM: muscle weakness - Neurological Neurological ROS: weakness - Psychiatric Psychiatric general PM: depression Palliative Care-Exam - Constitutional Vitals: Temp Pulse Resp BP Pulse Ox 97.5 F L 96 18 102/69 87 05/17/17 08:00 05/17/17 08:00 05/17/17 08:00 05/17/17 08:00 05/17/17 08:00 General appearance: Present: cooperative, no acute distress - Head Head Exam: Present: atraumatic, normal inspection - Eye Eye exam: Present: PERRL - ENT ENT exam: Present: mucous membranes moist - Neck Neck exam: Present: full ROM - Respiratory Respiratory exam: Present: decreased breath sounds - Expanded Respiratory Exam Location: decreased breath sounds: Left, Right, Lower - Cardiovascular Cardiovascular exam: Present: RRR, +S1, +S2 - Expanded Cardiovascular Exam Peripheral pulses: 1+: Femoral (L) PM, Femoral (R) PM, Posterior Tibialis (L), Posterior Tibialis (R), 2+: Carotid (L) PM, Carotid (R) PM, Radial (L), Radial ( R), Dorsalis Pedis (L) PM, Dorsalis Pedis (R) PM - GI/Abdominal Exam GI/Abdominal exam: Present: normal bowel sounds, soft - Rectal Rectal Exam: Present: deferred - Catheter Type: Urethral (Hamlin) - Extremities Exam Extremities exam: Present: normal inspection - Expanded Upper Extremities Exam Upper Arm exam: Present: full ROM Forearm wrist exam: Present: full ROM - Expanded Lower Extremities Exam Upper Leg exam: Present: tenderness Lower Leg exam: Present: tenderness - Neurological Exam Neurological exam: Present: alert, oriented X3 - Psychiatric Psychiatric exam: Present: normal affect - Skin Skin exam: Present: warm Consult Discharge Plan - Plan Referrals: NONE,PCP [Primary Care Provider] - Palliative Quality Palliative Quality: Screen for Code Status: Yes, Screen for Goals of Care: Yes, Screen for Pain: Yes, If Pain Regimen Started, Initiate Bowel Regimen: Yes, Screen for Nausea/Vomitting: Yes Code Status: 05/14/17 19:11 Resuscitation Status: Active [RES] Stat Comment: Resuscitation Status: DNR-Comfort Care
[2017-05-17] MEDS: Menthol 9.1 MG LOZENGE PO PRN (17:45)
[2017-05-18] MEDS: *HR* Morphine Sulfate SR (12 HR) 15 MG TABLET.ER PO SCH ×3 (00:55→18:00)
[2017-05-18] MEDS: Morphine Oral CONC 5 MG/0.25 ML ORAL.SYG PO PRN ×5 (01:04→18:12)
[2017-05-18] MEDS: *HR* Methadone 5 MG TABLET PO SCH ×2 (05:28→18:01)
[2017-05-18] MEDS: Menthol 9.1 MG LOZENGE PO PRN (05:35)
[2017-05-18] MEDS: Furosemide 40 MG TABLET PO SCH ×2 (07:56→18:00)
[2017-05-18] MEDS: Sennosides/Docusate Sodium TABLET PO SCH ×2 (07:56→21:35)
[2017-05-18] MEDS: Nicotine 14 MG PATCH.TD24 TD SCH (07:56)
--- NOTE | 2017-05-18 10:53 | Palliative Progress Note ---
Date of Encounter: 05/18/17 Time of Encounter: 09:10 - Assessment and plan (1) Prostate cancer metastatic to bone Current Visit: No Status: Chronic Assessment and plan: Patient has used 70 oral morphine equivalent suggested a just in the breakthrough pain medications. Therefore will increase his MS Contin 30 mg every 8 hours to 45 mg every 8 hours thereby increasing his long-term medication by total of 45 mg a day. They will continue to observe his overall use. (2) Tobacco abuse Current Visit: No Status: Chronic Assessment and plan: We will start a nicotine patch. His patch is in place. (3) Constipation Current Visit: No Status: Acute Assessment and plan: Senna and Dulcolax suppositories. Increasing senna. Refused. However we will continue to try. Continue try patient is refusing intermittently. Qualifiers: Constipation type: slow transit constipation Qualified Code(s): K59.01 - Slow transit constipation (4) Goals of care, counseling/discussion Current Visit: No Status: Acute Assessment and plan: DO NOT RESUSCITATE comfort care, patient is on GIP hospice will transition to senior living next week. No changes today. Discuss further with hospice today. Patient would like to try some therapy. I also make it easier for him to transition to a senior living. It is felt by the hospice team that the patient is not safe at home, however the patient is awake and alert and able to make decisions. 2 need to work with him. (5) Urinary retention Current Visit: Yes Status: Acute Assessment and plan: Patient finally did start having some discomfort discomfort. Hamlin placed with immediate relief of discomfort patient doing much better. - Time Spent With Patient Total time spent is greater than 50% in coordination of care (as documented) at patient's floor/unit and/or counseling patient: - Subjective Interval history: Patient reports doing better this morning and I have noted that he is actually using his medications now. Discussed with him the possibility of physical therapy and he would like to give this a try. I have discussed this with hospice and they are going to come out and discuss him with him further. - Constitutional General appearance: Present: no acute distress - Eye Eye exam: Present: normal appearance - ENT ENT exam: Present: mucous membranes moist - Respiratory Respiratory exam: Present: decreased breath sounds - Cardiovascular Cardiovascular exam: Present: RRR - GI/Abdominal GI/Abdominal exam: Present: normal bowel sounds, soft. Absent: tenderness - Extremities Exam Extremities exam: Present: normal inspection. Absent: tenderness - Psychiatric Psychiatric exam: Absent: agitated, anxious - Skin Skin exam: Present: dry, warm Palliative Quality Palliative Quality: Screen for Code Status: Yes, Screen for Goals of Care: Yes, Screen for Pain: Yes, If Pain Regimen Started, Initiate Bowel Regimen: Yes, Screen for Nausea/Vomitting: Yes Code Status: 05/14/17 19:11 Resuscitation Status: Active [RES] Stat Comment: Resuscitation Status: DNR-Comfort Care Consult Discharge Plan - Plan Referrals: NONE,PCP [Primary Care Provider] -
[2017-05-18] MEDS ORDERED: *HR* Morphine Sulfate SR (12 HR) 15 MG TABLET.ER PO SCH (10:56)
[2017-05-18] MEDS: *HR* LORazepam Oral Conc 2 MG/ML PO PRN ×2 (12:29→18:12)
[2017-05-18] MEDS: *HR* Morphine Soln 10 MG/5 ML UDC PO PRN ×2 (15:04→19:51)
[2017-05-18] MEDS: *HR* Morphine Sulfate SR (12 HR) 30 MG TABLET.ER PO SCH (18:01)
[2017-05-19] MEDS: *HR* Morphine Sulfate SR (12 HR) 30 MG TABLET.ER PO SCH ×4 (00:52→23:36)
[2017-05-19] MEDS: *HR* Morphine Sulfate SR (12 HR) 15 MG TABLET.ER PO SCH ×4 (00:52→23:36)
[2017-05-19] MEDS: Morphine Oral CONC 5 MG/0.25 ML ORAL.SYG PO PRN ×3 (05:59→21:35)
[2017-05-19] MEDS: *HR* Methadone 5 MG TABLET PO SCH ×2 (06:00→16:06)
--- NOTE | 2017-05-19 07:40 | Palliative Progress Note ---
Date of Encounter: 05/19/17 Time of Encounter: 07:20 - Assessment and plan (1) Prostate cancer metastatic to bone Current Visit: No Status: Chronic Assessment and plan: Patient has used 70 oral morphine equivalent suggested a just in the breakthrough pain medications. Therefore will increase his MS Contin 30 mg every 8 hours to 45 mg every 8 hours thereby increasing his long-term medication by total of 45 mg a day. They will continue to observe his overall use. He is to total of 90 oral morphine equivalents of breakthrough medication during the day yesterday. However the increased rest condos did not start until approximately 1800 hrs. After 1800 hrs. the patient's only use to when necessary's for total of 30 milligram oral morphine equivalent. Therefore will watch today and adjust MS Contin as necessary. (2) Tobacco abuse Current Visit: No Status: Chronic Assessment and plan: We will start a nicotine patch. His patch is in place. He feels the patch is adequate. (3) Constipation Current Visit: No Status: Acute Assessment and plan: Senna and Dulcolax suppositories. Increasing senna. Refused. However we will continue to try. Continue try patient is refusing intermittently. Discussed with patient this morning he does not feel he needs to have a bowel movement at this time and states his bowels are moving fine with no discomfort. Continue to watch. Qualifiers: Constipation type: slow transit constipation Qualified Code(s): K59.01 - Slow transit constipation (4) Goals of care, counseling/discussion Current Visit: No Status: Acute Assessment and plan: DO NOT RESUSCITATE comfort care, patient is on [facility] hospice will transition to senior living next week. No changes today. Discuss further with hospice today. Patient would like to try some therapy. I also make it easier for him to transition to a senior living. It is felt by the hospice team that the patient is not safe at home, however the patient is awake and alert and able to make decisions. 2 need to work with him. Hospitalist's approved a physical therapy evaluation by the home care physical therapist. He should be by sometime today a be able to provide some physical therapy for the patient at a senior living. We will await their evaluation. (5) Urinary retention Current Visit: Yes Status: Acute Assessment and plan: Patient finally did start having some discomfort discomfort. Hamlin placed with immediate relief of discomfort patient doing much better. - Time Spent With Patient Total time spent is greater than 50% in coordination of care (as documented) at patient's floor/unit and/or counseling patient: - Subjective Interval history: Patient reports doing better this morning and I have noted that he is actually using his medications now. He states he can notice the increased helping at least a little bit. Told it would take better part of today for him to really feel the effect. He states that his bowels are moving, however this is nothing recorded feel he needs any more medication for his bowels. He states that the physical therapy folks from home care have not been [place].. - Constitutional General appearance: Present: no acute distress - Eye Eye exam: Present: normal appearance - Respiratory Respiratory exam: Present: decreased breath sounds - Cardiovascular Cardiovascular exam: Present: RRR - GI/Abdominal GI/Abdominal exam: Present: normal bowel sounds, soft. Absent: tenderness - Extremities Exam Extremities exam: Present: normal inspection. Absent: pedal edema, tenderness - Neurological Exam Neurological exam: Present: alert - Psychiatric Psychiatric exam: Absent: agitated, anxious - Skin Skin exam: Present: dry, warm Palliative Quality Palliative Quality: Screen for Code Status: Yes, Screen for Goals of Care: Yes, Screen for Pain: Yes, If Pain Regimen Started, Initiate Bowel Regimen: Yes, Screen for Nausea/Vomitting: Yes Code Status: 05/14/17 19:11 Resuscitation Status: Active [RES] Stat Comment: Resuscitation Status: DNR-Comfort Care Consult Discharge Plan - Plan Referrals: NONE,PCP [Primary Care Provider] -
[2017-05-19] MEDS: Sennosides/Docusate Sodium TABLET PO SCH ×2 (08:39→21:36)
[2017-05-19] MEDS: Furosemide 40 MG TABLET PO SCH ×2 (08:39→16:06)
[2017-05-19] MEDS: Nicotine 14 MG PATCH.TD24 TD SCH (08:40)
[2017-05-20] MEDS: Morphine Oral CONC 5 MG/0.25 ML ORAL.SYG PO PRN ×3 (01:55→12:45)
[2017-05-20] MEDS: *HR* Methadone 5 MG TABLET PO SCH (05:06)
[2017-05-20 07:17] VITALS: BP 103/71
--- NOTE | 2017-05-20 07:37 | Discharge Summary ---
Date of Encounter: 05/20/17 Time of Encounter: 07:20 - Discharge Diagnosis (1) Prostate cancer metastatic to bone Priority: Primary Status: Chronic (2) Tobacco abuse Priority: Secondary Status: Chronic (3) Constipation Priority: Secondary Status: Acute Qualifiers: Constipation type: slow transit constipation Qualified Code(s): K59.01 - Slow transit constipation (4) Goals of care, counseling/discussion Priority: Secondary Status: Acute (5) Urinary retention Priority: Secondary Status: Acute - Discharge Medications Prescriptions: Morphine Sulfate SR (12 HR) [MS Contin] 1 tab PO Q8HR #90 tab Morphine Sulfate SR (12 HR) [MS Contin] 1 tab PO Q8HR #90 tab Dexamethasone [Decadron] 4 mg PO DAILY #30 tab Furosemide [Lasix] 40 mg PO BID #60 tab Haloperidol Oral Conc [Haldol] 1 mg GTUBE Q4H PRN #60 mls PRN Reason: Agitation LORazepam Oral Conc [Ativan Oral Conc] 1 mg PO Q4H PRN #60 mls PRN Reason: Anxiety Methadone HCl 15 mg PO Q12H #60 mls Morphine Oral CONC [Roxanol] 1 ml SL Q2H PRN #120 ml PRN Reason: sob or pain Nicotine Patch [Nicoderm] 1 each TD DAILY #30 patch.td24 Sennosides/Docusate Sodium [Senna Plus] 2 each PO BID #120 tablet Home Medications: [place]-3/Dha/Epa/Fish Oil [Fish Oil 1,000 mg Softgel] 1,000 mg PO DAILY 11/11/16 [History] Nicotine Patch [Nicoderm] 21 mg TD DAILY #30 patch.td24 11/21/16 [Rx] Morphine Sulfate SR (12 HR) [MS Contin] 15 mg PO Q12HR #60 tablet.er 11/26/16 [ Rx] Docusate Sodium [Colace] 100 mg PO BID #60 capsule 11/30/16 [Rx] Sennosides [Senna] 2 tab PO HS #60 tablet 11/30/16 [Rx] OxyCODONE/APAP 10/325 [Percocet 10/325 MG] 1 each PO Q4HR PRN 12/03/16 [History] Ascorbic Acid [Vitamin C] 500 mg PO BIDWM #60 tablet 12/06/16 [Rx] Ferrous Sulfate 325 mg PO BIDWM #60 tablet 12/06/16 [Rx] Multivit/Ca/Min/Fe/FA [Thera M Plus] 1 tab PO DAILY #30 tablet 12/06/16 [Rx] Rivaroxaban [Xarelto] 20 mg PO DAILY #30 tablet 12/07/16 [Rx] Morphine Immed Rel [Morphine Sulfate] 15 mg PO Q2H PRN #60 tab 12/10/16 [Rx] Dexamethasone [Decadron] 4 mg PO DAILY #30 tab 05/19/17 [Rx] Furosemide [Lasix] 40 mg PO BID #60 tab 05/19/17 [Rx] Haloperidol Oral Conc [Haldol] 1 mg GTUBE Q4H PRN #60 mls 05/19/17 [Rx] LORazepam Oral Conc [Ativan Oral Conc] 1 mg PO Q4H PRN #60 mls 05/19/17 [Rx] Methadone HCl 15 mg PO Q12H #60 mls 05/19/17 [Rx] Morphine Oral CONC [Roxanol] 1 ml SL Q2H PRN #120 ml 05/19/17 [Rx] Morphine Sulfate SR (12 HR) [MS Contin] 1 tab PO Q8HR #90 tab 05/19/17 [Rx] Morphine Sulfate SR (12 HR) [MS Contin] 1 tab PO Q8HR #90 tab 05/19/17 [Rx] Nicotine Patch [Nicoderm] 1 each TD DAILY #30 patch.td24 05/19/17 [Rx] Sennosides/Docusate Sodium [Senna Plus] 2 each PO BID #120 tablet 05/19/17 [Rx] Allergies/Adverse Reactions: 3 Allergy/AdvReac Type Severity Reaction Status Date / Time NSAIDS (Non-Steroidal AdvReac Severe Vomiting Verified 11/30/16 18:19 Anti-Inflamma Cyclobenzaprine AdvReac Intermediate Agitated Verified 11/30/16 18:19 Internal Medicine - DS: Prov Date of admission: 05/14/17 19:18 Primary care physician: PCP NONE Consults: 05/14/17 19:11 Consult to Palliative Care [CONS] Routine Comment: Consulting Provider: Palliative Care [facility] Reason for Consult: coverage Call Completed: Yes Anticipated date of discharge: 05/20/17 - Patient Status Disposition: Transfer SNF Condition: Fair Functional capacity at discharge: uses cane/walker - Discharge Instructions Follow Up With: NONE,PCP [Primary Care Provider] - - Diet and Activity Activity: as per physical therapy - Hospital Course Hospital course: Mr. Enriquez is a 61 year old male The patient came in for pain control as well as not being safe in home environment. Pain was controlled, MS Ronald has come been gone up on. She is still reluctant asked for pain meds however is getting them on a fairly regular basis and we have increased his long-lasting medications. She also had acute urinary retention with 800+ in the bladder Hamlin catheter has been placed and this has been relieved. Patient will probably need to have the Hamlin in for at least another week. She will be discharged to [facility] [address] where he will continue to get physical therapy but this will be done through hospice. - Time Spent with Patient Total time spent providing and/or coordinating discharge services: Internal Medicine - DS: Exam - Constitutional Vitals: Vital Signs Temp Pulse Resp BP Pulse Ox 05/20/17 07:15 98.4 F 75 15 103/71 89 05/19/17 20:11 97.4 F L 63 15 96/69 94 Intake and Output 05/19/17 05/19/17 05/20/17 15:59 23:59 07:59 Intake Total 80 / 80 30 / 30 Output Total 300 / 300 400 / 400 Balance 80 / 80 -270 / -270 -400 / -400 Intake: Oral 80 / 80 30 / 30 Output: Catheter 300 / 300 400 / 400 Other: Meal Lunch Percent of Meal Consumed 25% Weight 49.124 kg Patient Weight 05/20/17 23:59 Weight 49.124 kg General appearance: no acute distress - Head Head exam: Present: atraumatic, normal inspection - Eye Eye exam: Present: normal appearance - ENT ENT exam: Present: mucous membranes moist - Respiratory Respiratory exam: Present: decreased breath sounds - Cardiovascular Cardiovascular exam: Present: RRR - GI/Abdominal GI/Abdominal exam: Present: normal bowel sounds, soft. Absent: tenderness - Extremities Exam Extremities exam: Present: normal inspection. Absent: pedal edema, tenderness - Neurological Exam Neurological exam: Present: alert, oriented X3 - Psychiatric Psychiatric exam: Absent: agitated, anxious - Skin Skin exam: Present: dry, warm
--- NOTE | 2017-05-20 07:41 | Physician Discharge Referral ---
ExtendedCare Referral Info Transfer To: [facility] Provider in Charge after Transfer: Security Analyst Institutional Level of Care: Intermediate - Diagnosis (1) Prostate cancer metastatic to bone Priority: Primary Status: Chronic (2) Tobacco abuse Priority: Secondary Status: Chronic (3) Constipation Priority: Secondary Status: Acute (4) Goals of care, counseling/discussion Status: Acute (5) Urinary retention Status: Acute - Transfer Medications Prescriptions: Morphine Sulfate SR (12 HR) [MS Contin] 1 tab PO Q8HR #90 tab Morphine Sulfate SR (12 HR) [MS Contin] 1 tab PO Q8HR #90 tab Dexamethasone [Decadron] 4 mg PO DAILY #30 tab Furosemide [Lasix] 40 mg PO BID #60 tab Haloperidol Oral Conc [Haldol] 1 mg GTUBE Q4H PRN #60 mls PRN Reason: Agitation LORazepam Oral Conc [Ativan Oral Conc] 1 mg PO Q4H PRN #60 mls PRN Reason: Anxiety Methadone HCl 15 mg PO Q12H #60 mls Morphine Oral CONC [Roxanol] 1 ml SL Q2H PRN #120 ml PRN Reason: sob or pain Nicotine Patch [Nicoderm] 1 each TD DAILY #30 patch.td24 Sennosides/Docusate Sodium [Senna Plus] 2 each PO BID #120 tablet Home Medications: [place]-3/Dha/Epa/Fish Oil [Fish Oil 1,000 mg Softgel] 1,000 mg PO DAILY 11/11/16 [History] Nicotine Patch [Nicoderm] 21 mg TD DAILY #30 patch.td24 11/21/16 [Rx] Morphine Sulfate SR (12 HR) [MS Contin] 15 mg PO Q12HR #60 tablet.er 11/26/16 [ Rx] Docusate Sodium [Colace] 100 mg PO BID #60 capsule 11/30/16 [Rx] Sennosides [Senna] 2 tab PO HS #60 tablet 11/30/16 [Rx] OxyCODONE/APAP 10/325 [Percocet 10/325 MG] 1 each PO Q4HR PRN 12/03/16 [History] Ascorbic Acid [Vitamin C] 500 mg PO BIDWM #60 tablet 12/06/16 [Rx] Ferrous Sulfate 325 mg PO BIDWM #60 tablet 12/06/16 [Rx] Multivit/Ca/Min/Fe/FA [Thera M Plus] 1 tab PO DAILY #30 tablet 12/06/16 [Rx] Rivaroxaban [Xarelto] 20 mg PO DAILY #30 tablet 12/07/16 [Rx] Morphine Immed Rel [Morphine Sulfate] 15 mg PO Q2H PRN #60 tab 12/10/16 [Rx] Dexamethasone [Decadron] 4 mg PO DAILY #30 tab 05/19/17 [Rx] Furosemide [Lasix] 40 mg PO BID #60 tab 05/19/17 [Rx] Haloperidol Oral Conc [Haldol] 1 mg GTUBE Q4H PRN #60 mls 05/19/17 [Rx] LORazepam Oral Conc [Ativan Oral Conc] 1 mg PO Q4H PRN #60 mls 05/19/17 [Rx] Methadone HCl 15 mg PO Q12H #60 mls 05/19/17 [Rx] Morphine Oral CONC [Roxanol] 1 ml SL Q2H PRN #120 ml 05/19/17 [Rx] Morphine Sulfate SR (12 HR) [MS Contin] 1 tab PO Q8HR #90 tab 05/19/17 [Rx] Morphine Sulfate SR (12 HR) [MS Contin] 1 tab PO Q8HR #90 tab 05/19/17 [Rx] Nicotine Patch [Nicoderm] 1 each TD DAILY #30 patch.td24 05/19/17 [Rx] Sennosides/Docusate Sodium [Senna Plus] 2 each PO BID #120 tablet 05/19/17 [Rx] Allergies/Adverse Reactions: 3 Allergy/AdvReac Type Severity Reaction Status Date / Time NSAIDS (Non-Steroidal AdvReac Severe Vomiting Verified 11/30/16 18:19 Anti-Inflamma Cyclobenzaprine AdvReac Intermediate Agitated Verified 11/30/16 18:19 - Respiratory Orders Oxygen / L per min (2 l/min) Smoking Cessation: Smoking cessation has been advised. For more information, call the [employer] Tobacco Quit Line at 1-200-ULYY-NOW. - Advance Directives Code Status: DNR-Comfort Care - Mobility Orders Other (bedrest until relaeased by hospice physical therapy) - Diet Orders Regular CERTIFICATION: I certify that the transfer of the above named patient to an Extended Care Facility is necessary for the continuing treatment of the diagnosis listed. The above information is true and accurate reflection of patient's current condition. Confidential - Redisclosure prohibited without a patient's written consent.
[2017-05-20] MEDS: Sennosides/Docusate Sodium TABLET PO SCH (08:12)
[2017-05-20] MEDS: *HR* Morphine Sulfate SR (12 HR) 15 MG TABLET.ER PO SCH (08:12)
[2017-05-20] MEDS: Nicotine 14 MG PATCH.TD24 TD SCH (08:13)
[2017-05-20] MEDS: Furosemide 40 MG TABLET PO SCH (08:13)
[2017-05-20] MEDS: *HR* Morphine Sulfate SR (12 HR) 30 MG TABLET.ER PO SCH (08:13)
[2017-05-20] MEDS: *HR* LORazepam Oral Conc 2 MG/ML PO PRN (12:45)
== END 2017-05-20 13:25 | DRG 948 ==
LOC: 2ANU 19:18
PROVIDERS: ADMIT Family Medicine Hospice and Palliative Medicine; ATTEND Family Medicine Hospice and Palliative Medicine